=== PATIENT | male | born 1960 | race Caucasian/White ===

== ENCOUNTER → 2016-09-24 | Outpatient (CLI) | payer MEDICARE, MEDICAID ==
[~2016-09-24] MED LIST: ACHD5005 PO; ALLP300T PO; ALPR0.5T PO; AMLO5TAB2 PO; CHOL2000 PO; CIPR500T4 PO; CIPR500T78 PO; CPR500T PO; D50KC PO; DCS100C PO; EXEN10PE4; FENO145T2 PO; FLAX OIL; FLT05NA16 NSEACH; FLUT16SP22 NS; FNT100TD TD; FNT75TD; FURO20TA4 PO; GEMF600T3 PO; GLUC500C2 PO; GUAI1TBM7 PO; HCT25T PO; HYDR-3454 PO; HYDR-3714 PO; HYDR1CAP2 PO; HYOS0.1216 PO; LACT20SO2 PO; LAMO100T69 PO; LCT30U PO; LEVO500T69 PO; LEVO5TAB12 PO; LITH300C PO; LORA10TA7 PO; LRT10T; METF500T PO; METR500T PO; MINO100C2 PO; NF-LAMO200 PO; NF-URO10 PO; NFMET1000 PO; NITR100C3 PO; ONDA-43 PO; OXYC-109 PO; OXYC-309 PO; PHEN200T27 PO; POLY17PO6 PO; POTA10TA17 PO; PROP20TA5 PO; SULF1TAB35 PO; TMSL.4C PO; TR1C15 TOP; VNL75CCR PO; [UNRECOGNIZED DRUG - CODE]
--- OUTSIDE RECORDS SUMMARY | 2016-09-24 09:51 | XMS REPORT | Continuity of Care Document ---
Author Author [facility] Organization [facility] Address Unknown Phone Unavailable Care Team Providers Care Cut Off Saw Set Up Operator Name Role Phone PCP Unavailable Source Comments Some departments are not documenting in the electronic medical record. If you do not see the information that you expected, contact Release of Information in the Health Information Management department at [phone] for further assistance in locating additional records.[facility] Active Allergies and Adverse Reactions Allergen Noted Date Severity Reactions Comments Other 06/13/2012 SEE COMMENTS Psych med aphrinel not sure but caused very agitated and mean Current Medications Prescription Sig. Disp. Refills Start End Date Status Date fentaNYL (DURAGESIC) 100 Apply 1 Patch to top of Active mcg/hr patch skin as directed every 72 hours venlafaxine (EFFEXOR) 75 Take 325 mg by mouth Active mg tablet daily. lithium carbonate 300 mg Take 300 mg by mouth Active capsule daily. lamoTRIgine (LAMICTAL) Take 100 mg by mouth Active 100 mg tablet twice daily. allopurinol (ZYLOPRIM) Take 300 mg by mouth Active 300 mg tablet daily. fenofibrate Take 145 mg by mouth at Active nanocrystallized (TRICOR) bedtime daily. 145 mg tablet minocycline (MINOCIN) 100 Take 100 mg by mouth Active mg capsule daily. potassium chloride(+) Take 20 mEq by mouth Active (MICRO-K) 10 mEq capsule twice daily. metFORMIN (GLUCOPHAGE) Take 1,000 mg by mouth Active 500 mg tablet twice daily. gemfibrozil (LOPID) 600 Take 600 mg by mouth Active mg tablet twice daily. fluticasone (FLONASE) 50 Apply 2 Sprays to each Active mcg/actuation nasal spray nostril as directed as Needed. amLODIPine (NORVASC) 5 mg Take 5 mg by mouth daily. Active tablet Active Problems Problem Noted Date Insomnia 06/13/2012 Fatigue 06/13/2012 Bipolar 1 disorder (HCC) 06/13/2012 Chronic back pain 06/13/2012 Social History Tobacco Use Types Packs/Day Years Used Date Never Smoker Alcohol Use Drinks/Week oz/Week Comments No Last Filed Vital Signs Vital Sign Reading Time Taken Blood Pressure 144/93 06/13/2012 11:32 AM [employer] Pulse 87 06/13/2012 11:32 AM [employer] Temperature - - Respiratory Rate - - Height 1.753 m (5' 9") 06/13/2012 11:32 AM [employer] Weight 132.722 kg (292 lb 9.6 06/13/2012 11:32 AM [employer] oz) Body Mass Index 43.19 06/13/2012 11:32 AM [employer] Oxygen Saturation - - Plan of Care Health Maintenance Due Date Last Done Comments Physical (Comprehensive) 12/03/1966 Exam Pertussis Vaccine 12/03/1970 Tetanus Vaccine 12/03/1976 Colorectal Cancer 12/03/2009 Screening Influenza Vaccine 04/09/2016 Results from Last 3 Months Not on file
== END ==
LOC: LAB 09:45
PROVIDERS: ATTEND Internal Medicine
DX: L73.9 Follicular disorder, unspecified (principal)
CPT/HCPCS: 87081

== ENCOUNTER → 2017-01-06 | Outpatient (CLI) | payer MEDICARE, MEDICAID | LOC: CARD 13:38 | PROVIDERS: ATTEND Internal Medicine | DX: R53.83 Other fatigue (principal); I10 Essential (primary) hypertension; R07.9 Chest pain, unspecified | CPT/HCPCS: 93306 ==

== ENCOUNTER → 2017-01-08 | Outpatient (CLI) | payer MEDICARE, MEDICAID ==
[~2017-01-08] VITALS: Ht 175.3 cm; Wt 132.9 kg
[~2017-01-08] MED LIST changes: +CATHETER FLUSH 10 ML SYR IV PRN; +REGADENOSON 0.4 MG/5 ML SYR (LEXISCAN) IV ONE
[2017-01-08 08:07] VITALS: BP 164/94
== END ==
LOC: CARD 06:39
PROVIDERS: ATTEND Internal Medicine
DX: I10 Essential (primary) hypertension (principal); I07.9 Rheumatic tricuspid valve disease, unspecified; R53.83 Other fatigue
CPT/HCPCS: 78452; 93017

== ENCOUNTER → 2018-04-26 | Outpatient (CLI) | payer MEDICARE, MEDICAID ==
[~2018-04-26] MED LIST changes: +BARIUM SUSPENSION 2.1% (VANILLA SILQ) 450 ML PO ONE; -CATHETER FLUSH 10 ML SYR IV PRN; +IOHEXOL 350 MG/ML 100 ML (OMNIPAQUE 350) VIAL IV ONE; +NS 250 ML (IVPB) BAG IV ONE; -REGADENOSON 0.4 MG/5 ML SYR (LEXISCAN) IV ONE
[2018-04-26 10:26] LABS: BUN/CREATININE RATIO 9; GFR ESTIMATED > 60
--- NOTE | 2018-04-26 12:04 | Diagnostic Imaging Report ---
PROCEDURE: CT abdomen and pelvis with contrast. TECHNIQUE: Multiple contiguous axial images were obtained through the abdomen and pelvis after administration of intravenous contrast. INDICATION: Recurrent ventral hernia and left lower quadrant pain. COMPARISON: Correlation is made with prior CT from 11/11/2015. FINDINGS: The lung bases are clear. The liver demonstrates generalized low density, consistent with hepatic steatosis. No discrete liver mass is identified. The gallbladder appears to be absent. Pancreas and spleen are unremarkable. No adrenal mass is detected. Kidneys contain tiny cortical densities, too small to characterize, but likely cysts. No hydronephrosis is seen. Aorta is nonaneurysmal. No central retroperitoneal or mesenteric lymphadenopathy is seen. There appear to be postsurgical changes to the midline anterior abdomen with focal midline bulge. No definite defect is seen. No herniated bowel loops are identified. Overall appearance is similar to the exam from November 2015. There is no ascites. The bladder is unremarkable. No pelvic lymphadenopathy is seen. Postsurgical changes in the lower lumbar spine are noted. IMPRESSION: Overall, stable CT of the abdomen and pelvis when compared with prior CT from 11/11/2015. Dictated by: Dictated on workstation # [id number]
== END ==
LOC: RAD 09:53
PROVIDERS: ATTEND Surgery
DX: K43.2 Incisional hernia without obstruction or gangrene (principal); Z98.890 Other specified postprocedural states
CPT/HCPCS: 36415; 74177; 82565; 84520

== ENCOUNTER 2018-05-23 11:32 | Outpatient (CLI) | payer MEDICARE, MEDICAID ==
[~2018-05-23] VITALS: Ht 175.3 cm; Wt 132.9 kg
[~2018-05-23 11:32] MED LIST changes: -BARIUM SUSPENSION 2.1% (VANILLA SILQ) 450 ML PO ONE; -IOHEXOL 350 MG/ML 100 ML (OMNIPAQUE 350) VIAL IV ONE; -NS 250 ML (IVPB) BAG IV ONE
[2018-05-23] MEDS ORDERED: POTA10TA17 PO (12:02)
[2018-05-23] MEDS ORDERED: ERGO50006 PO (12:02)
[2018-05-23] MEDS ORDERED: CLIN50GE TP (12:02)
[2018-05-23] MEDS ORDERED: METF-397 PO (12:02)
[2018-05-23] MEDS ORDERED: CEPH500T PO (12:02)
[2018-05-23] MEDS ORDERED: ALLO300T2 PO (12:02)
[2018-05-23] MEDS ORDERED: FLUT9.9S NS (12:02)
[2018-05-23] MEDS ORDERED: METR1KIT2 TP (12:02)
[2018-05-23] MEDS ORDERED: AMLO5TAB7 PO (12:02)
[2018-05-23] MEDS ORDERED: HYDR25TA4 PO (12:02)
[2018-05-23] MEDS ORDERED: CETI10TA17 PO (12:02)
[2018-05-23] MEDS ORDERED: LACT10SO46 PO (12:02)
[2018-05-23 12:15] VITALS: BP 117/81
[2018-05-23 12:42] LABS: BASOPHILS % (AUTO) 0 % (0-10); EOSINOPHILS # (AUTO) 0.3 10^3/uL (0.0-0.3); EOSINOPHILS % (AUTO) 3 % (0-10); HEMATOCRIT 46 % (40-54); HEMOGLOBIN 16.4 G/DL (13.3-17.7); LYMPHOCYTES # (AUTO) 1.6 X 10^3 (1.0-4.0); LYMPHOCYTES % (AUTO) 15 % (12-44); MEAN CORPUSCULAR HEMOGLOBIN 30 PG (25-34); MEAN CORPUSCULAR HGB CONC 36 G/DL (32-36); MEAN CORPUSCULAR VOLUME 85 FL (80-99); MEAN PLATELET VOLUME 9.7 FL (7.4-10.4); MONOCYTES % (AUTO) 9 % (0-12); NEUTROPHILS % (AUTO) 73 % (42-75); PLATELET COUNT 270 10^3/uL (130-400); RED BLOOD COUNT 5.43 10^6/uL (4.35-5.85); RED CELL DISTRIBUTION WIDTH 15.5 % (10.0-14.5); WHITE BLOOD COUNT 10.9 10^3/uL (4.3-11.0)
== END 2018-05-23 13:40 | disposition home or self-care (01) ==
LOC: PREOP 11:32
PROVIDERS: ATTEND Surgery
DX: Z01.812 Encounter for preprocedural laboratory examination (principal); Z11.2 Encounter for screening for other bacterial diseases; K43.9 Ventral hernia without obstruction or gangrene
CPT/HCPCS: 36415; 85025; 87081

== ENCOUNTER 2018-05-25 07:47 | Inpatient (IN) | payer MEDICARE, MEDICAID ==
[~2018-05-25] VITALS: Ht 175.3 cm; Wt 133.4 kg
[~2018-05-25 07:47] MED LIST changes: +ALLO300T2 PO; +AMLO5TAB7 PO; +CEPH500T PO; +CETI10TA17 PO; +CLIN50GE TP; +ERGO50006 PO; +FLUT9.9S NS; +HYDR25TA4 PO; +LACT10SO46 PO; +METF-397 PO; +METR1KIT2 TP
--- OUTSIDE RECORDS SUMMARY | 2018-05-25 07:52 | XMS REPORT | Clinical Summary ---
Author Author [facility] Organization [facility] Address Unknown Phone Unavailable Care Team Providers Care Transportation Engineer Name Role Phone Gregory Mcfadden MD Unavailable Source Comments Some departments are not documenting in the electronic medical record. If you do not see the information that you expected, contact Release of Information in the Health Information Management department at [phone] for further assistance in locating additional records.[facility] Allergies Active Allergy Reactions Severity Noted Date Comments Unclassified Drug SEE COMMENTS 06/13/2012 Psych med aphrinel not sure but caused [...] disorder (HCC) 06/13/2012 Chronic back pain 06/13/2012 Family History Medical History Relation Name Comments Heart Attack Father Heart Failure Father High Cholesterol Father Hypertension Father Diabetes Paternal Grandmother Heart Attack Paternal Grandmother High Cholesterol Paternal Grandmother Hypertension Paternal Grandmother Relation Name Status Comments Brother Alive Brother Alive Father Maternal Grandfather Maternal Grandmother Mother Alive Paternal Grandfather Paternal Grandmother Social History Tobacco Use Types Packs/Day Years Used Date Never Smoker Alcohol Use Drinks/Week oz/Week Comments No Sex Assigned at Date Recorded Not on file Last Filed Vital Signs Vital Sign Reading Time Taken Blood Pressure 144/93 06/13/2012 11:32 AM ME[employer] Pulse 87 06/13/2012 11:32 AM [employer] Temperature - - Respiratory Rate - - Oxygen Saturation - - Inhaled Oxygen - - Concentration Weight 132.7 kg (292 lb 9.6 oz) 06/13/2012 11:32 AM ME[employer] Height 175.3 cm (5' 9") 06/13/2012 11:32 AM [employer] Body Mass Index 43.21 06/13/2012 11:32 AM [employer] Plan of Treatment Health Maintenance Due Date Last Done Comments HEPATITIS C SCREENING 1960 PHYSICAL (COMPREHENSIVE) 12/03/1966 EXAM PERTUSSIS VACCINE 12/03/1970 HIV SCREENING 12/03/1974 TETANUS VACCINE 12/03/1976 COLORECTAL CANCER 12/03/2009 SCREENING SHINGLES RECOMBINANT 12/03/2009 VACCINE (1 of 2) INFLUENZA VACCINE 03/09/2018 Results Not on filefrom Last 3 Months
--- OUTSIDE RECORDS SUMMARY | 2018-05-25 07:52 | XMS REPORT ---
Author Author BECCA NATARAJAN [facility] Address Unknown Care Team Providers Care Software Development Engineer Name Role Phone BECCA NATARAJAN Unavailable PROBLEMS Type Condition ICD9-CM Code [id number] Code Onset Dates Condition Status SNOMED Code Problem Major depressive disorder, recurrent episode, unspecified 296.30 Active 36470730 Problem Bipolar disorder, unspecified 296.80 Active 36012225 ALLERGIES Substance Reaction Event Type Date Status Sulfamethoxazole Unknown Drug Allergy Apr, Active Lexapro Unknown Drug Allergy Apr, Active Aspirin Unknown Drug Allergy Apr, Active Anafranil Unknown Drug Allergy Apr, Active ENCOUNTERS Encounter Location Date Diagnosis [facility] [id number] [place] [id number] Apr, Dental examination Z01.20 [facility] [id number] [place] [address]- [address] Nov, [facility] [id number] [place] [address]19- 9927 Nov, [facility] [id number] [place] [address]647- 3749 May, [facility] [id number] [place] [address]97- 3953 May, [facility] [id number] [place] [address]- 8482 May, [facility] [id number] [place] [address]- 1286 May, [facility] [id number] [place] [address]11- 9323 Apr, [facility] [id number] [place] [address]52- 7391 Apr, [facility] [place] [facility] [address] [id number] [place] [address]99 Feb, [facility] [place] [facility] [address] [id number] [place] [address] 1706 Feb, [facility] [place] [facility] [address] [id number] [place] [address] 9436 Nov, [facility] [place] [facility] [address] [id number] [place] [address] 6692 Nov, [facility] [place] [facility] [address] [id number] [place] [address] 7972 Oct, [facility] [place] [facility] [address] [id number] [place] [address] 0397 Oct, [facility] [place] [facility] [address] [id number] [place] [address] 1582 Oct, [facility] [place] [facility] [address] [id number] [place] [address] 1984 Oct, [facility] [place] [facility] [address] [id number] [place] [address] 8465 Sep, [facility] [place] [facility] [address] [id number] [place] [address] 6407 Sep, [facility] [place] [facility] [address] [id number], [place] [address] Aug, [facility] [place] [facility] [address] [id number], [place] [address] Aug, [facility] [place] [facility] [address] [id number] [place] [address] 6487 May, [facility] [place] [facility] [address] [id number] [place] [address] 2356 May, [facility] [place] [facility] [address] [id number] [place] [address] 2546 May, [facility] [place] [facility] [address] [id number] [place] [address] 7705 May, [facility] [address] [id number] [place] [address] 6729 Apr, [facility] [address] [id number] [place] [address] 9981 Mar, [facility] [address] [id number] [place] [address] 4550 Mar, [facility] [address] [id number] [place] [address] 7218 Mar, [facility] [address] [id number] [place] [address]- 3598 Mar, [facility] [address] [id number] [place] [address] 4080 Mar, [facility] [address] [id number] [place] [address] 9075 Mar, [facility] [address] [id number] [place] [address]- 2947 Jan, [facility] [address] [id number] [place] [address]- 0461 Jan, [facility] [address] [id number] [place] [address] 0681 Jan, [facility] [address] [id number] [place] [address]- 0576 December, [facility] [address] [id number] [place] [address] 3903 December, [facility] [address] [id number] [place] [address]- 0645 December, [facility] [address] [id number] [place] [address]- 8315 December, [facility] [address] [id number] [place] [address]- 6027 December, [facility] [address] [id number] [place] [address]- 5279 14 Dec, 2012 [facility] [address] [id number] [place] [address]- 0358 30 Nov, 2012 [facility] [address] [id number] [place] [address]- 0418 Nov, [facility] [place] [facility] [address] [id number] [place] [address]- 6605 Nov, [facility] [address] [id number] [place] [address]- 0930 05 Nov, 2012 [facility] [address] [id number] [place] [address]- 1493 Oct, [facility] [address] [id number] [place] [address]- 1377 Oct, [facility] [address] [id number] [place] [address]- 0943 Oct, [facility] [address] [id number] [place] [address]- 8550 Sep, [facility] [address] [id number] [place] [address]- 9781 Aug, [facility] [address] [id number] [place] [address]- 3893 Aug, [facility] [place] [facility] [address] [id number], [place] [address] 5640 Aug, [facility] [place] [facility] [address] [id number] [place] [address]- 9365 Jun, [facility] [place] [facility] [address] [id number] [place] [address]- 0545 Jun, [facility] [place] [facility] [address] [id number] [place] [address]- 4067 Jun, [facility] [place] [facility] [address] [id number] [place] [address]- 3670 Jun, [facility] [place] [facility] [address] [id number] [place] [address]- 3733 May, [facility] [place] [facility] [address] [id number] [place] [address] May, [facility] [place] [facility] [address] [id number] [place] [address]- 0167 May, [facility] [place] [facility] [address] [id number] [place] [address]- 6790 May, [facility] [place] [facility] [address] [id number] [place] [address]- [address] May, [facility] [place] [facility] [address] [id number] [place] [address]- 5096 May, [facility] [place] [facility] [address] [facility] [id number] [place] [address]- 1238 May, [facility] [place] [facility] [address] [id number] [place] [address]- 5271 May, [facility] [place] [facility] [address] [id number] [place] [address]- 0521 Mar, [facility] [place] [facility] [address] [facility] [id number] [place] [address]- 4757 Mar, [facility] [place] [facility] [address] [id number] [place] [address]- 0833 Mar, [facility] [place] [facility] [address] [id number] [place] [address]- 5950 Feb, [facility] [place] [facility] [address] [id number] [place] [address]- 9991 Feb, [facility] [place] [facility] [address] [facility] [id number] [place] [address]- 0048 Jan, [facility] [place] [facility] [address] [facility] [id number] [place] [address]- 4873 December, [facility] [place] [facility] [address] [id number] [place] [address]- 0386 Nov, [facility] [place] [facility] [address] [id number] [place] [address]- 8872 28 Oct, 2011 [facility] [place] [facility] [address] [id number] [place] [address] 2546 Oct, [facility] [place] [facility] [address] [id number] [place] [address]- 0677 Aug, [facility] [place] [facility] [address] [id number] [place] [address]- 0059 Jul, [facility] [place] [facility] [address] [id number] [place] [address]- 7258 Jul, [facility] [place] [facility] [address] [id number] [place] [address]- 2752 Jul, [facility] [place] [facility] [address] [id number] [place] [address]- 6112 17 Jun, 2011 [facility] [place] [facility] [address] [id number] [place] [address]- 7771 17 Jun, 2011 [facility] [place] [facility] [address] [id number] [place] [address]- 0165 17 May, 2011 [facility] [place] [facility] [address] [id number] [place] [address]- 7108 17 May, 2011 [facility] [place] [facility] [address] [id number] [place] [address]- 5128 16 Mar, 2011 [facility] [place] [facility] [address] [id number] [place] [address]- 2546 16 Jan, 2011 [facility] [place] [facility] [address] [id number] [place] [address]- 4515 13 Jun, 2010 [facility] [place] [facility] [address] [id number] [place] [address]- 7016 13 Jun, 2010 [facility] [place] [facility] [address] [id number] [place] [address]- 5306 May, IMMUNIZATIONS No Known Immunizations SOCIAL HISTORY Never Assessed REASON FOR VISIT [place] PLAN OF CARE Activity Details Follow Up prn Reason:refer VITAL SIGNS Blood pressure systolic 127 mmHg 2017-04-22 Blood pressure diastolic 80 mmHg 2017-04-22 MEDICATIONS Medication Instructions Dosage Frequency Start Date End Date Duration Status Hydrochlorothiazide Active Vitamin D Active Lamictal Active Allopurinol 300 mg 1 Tablet by Oral route 1 time per day Mar, Active Doxycycline Active amlodipine 5 mg 1 Tablet by Oral route 1 time per day Mar, Active Potassium Citrate 10 mEq 2 Tablet by Oral route 2 times per day Mar Active Generlac Active Clindamycin HCl Active metformin 500 mg 2 Tablet by Oral route 2 times per day Mar, Active Metronidazole Active Ketoconazole-Cleanser Active RESULTS No Results PROCEDURES Procedure Date Ordered Result Body Site LTD ORAL EVALUATION - PROBLEM FOCUS Apr 22, 2017 INTRAORL-PERIAPICAL 1 FILM [id number] Apr 22, 2017 INSTRUCTIONS MEDICATIONS ADMINISTERED No Known Medications MEDICAL (GENERAL) HISTORY Type Description Date Medical History high blood pressure Medical History diabetes II Medical History surgery requiring pins, rods, screws Medical History back trouble Medical History hives Surgical History gall bladder Surgical History broken arm left humorous bone Surgical History naval hernia repair Surgical History kidney stones Surgical History cyst removed on back
--- NOTE | 2018-05-25 07:55 | Progress Note-Pre Operative ---
Pre-Operative Progress Note H&P Reviewed The H&P was reviewed, patient examined and no changes noted. Date Seen by Provider: Apr 28, 2018 Time Seen by Provider: 14:00 Date H&P Reviewed: May 25, 2018 Time H&P Reviewed: 07:55 Pre-Operative Diagnosis: Ventral and LLQ hernia SULLY MCLEAN MD May 25, 2018 07:55
--- OUTSIDE RECORDS SUMMARY | 2018-05-25 07:56 | XMS REPORT | Continuity of Care Document ---
Author Author [facility] Address Unknown Phone Unavailable Allergies Active Description Code Type Severity Reaction Onset Reported/Identified Relationship to Patient Clinical Status Yes enalapril-hydrochlorothiazide Drug Allergy 03/24/2011 Yes Anafranil Drug Allergy 05/25/2011 Yes Anafranil Drug Allergy N/A N/A 05/25/2011 Yes clomipramine [id number] Drug Allergy Mild N/A 12/01/2013 Yes aspirin [id number] Drug Allergy Unknown N/A 12/01/2013 Yes Sulfa (Sulfonamide Antibiotics) [id number] Drug Allergy Moderate ITCHING/NAUSEA 08/07/2015 Yes aspirin [id number] Drug Allergy Mild GI UPSET 05/23/2018 Yes Iodinated Contrast- Oral and IV Dye [id number] Drug Allergy Mild FACIAL ALVAREZ 05/23/2018 Medications There is no data. Problems Date Dx Coded Attending Type Code Diagnosis Diagnosed By 03/24/2008 296.50 BIPOLAR I DISORDER MOST RECENT EPISODE (OR CURRENT) DEPRESSED UNSPECIFIED 03/24/2008 300.00 AN ANXIETY UNSPEC 03/24/2008 296.50 BIPOLAR I DISORDER MOST RECENT EPISODE (OR CURRENT) DEPRESSED UNSPECIFIED 03/24/2008 300.00 AN ANXIETY UNSPEC 03/24/2008 296.50 BIPOLAR I DISORDER MOST RECENT EPISODE (OR CURRENT) DEPRESSED UNSPECIFIED 03/24/2008 300.00 AN ANXIETY UNSPEC 03/24/2008 296.50 BIPOLAR I DISORDER MOST RECENT EPISODE (OR CURRENT) DEPRESSED UNSPECIFIED 03/24/2008 300.00 AN ANXIETY UNSPEC 03/24/2008 296.50 BIPOLAR I DISORDER MOST RECENT EPISODE (OR CURRENT) DEPRESSED UNSPECIFIED 03/24/2008 300.00 AN ANXIETY UNSPEC 03/24/2008 296.50 BIPOLAR I DISORDER MOST RECENT EPISODE (OR CURRENT) DEPRESSED UNSPECIFIED 03/24/2008 300.00 AN ANXIETY UNSPEC 03/24/2008 296.50 BIPOLAR I DISORDER MOST RECENT EPISODE (OR CURRENT) DEPRESSED UNSPECIFIED 03/24/2008 300.00 AN ANXIETY UNSPEC 03/24/2008 STAR RUSSO DO 296.50 BIPOLAR I DISORDER MOST RECENT EPISODE (OR CURRENT) DEPRESSED UNSPECIFIED 03/24/2008 STAR RUSSO DO 300.00 AN ANXIETY UNSPEC 03/24/2008 296.50 BIPOLAR I DISORDER MOST RECENT EPISODE (OR CURRENT) DEPRESSED UNSPECIFIED 03/24/2008 300.00 AN ANXIETY UNSPEC 03/24/2008 296.50 BIPOLAR I DISORDER MOST RECENT EPISODE (OR CURRENT) DEPRESSED UNSPECIFIED 03/24/2008 300.00 AN ANXIETY UNSPEC 03/24/2008 296.50 BIPOLAR I DISORDER MOST RECENT EPISODE (OR CURRENT) DEPRESSED UNSPECIFIED 03/24/2008 300.00 AN ANXIETY UNSPEC 03/24/2008 296.50 BIPOLAR I DISORDER MOST RECENT EPISODE (OR CURRENT) DEPRESSED UNSPECIFIED 03/24/2008 300.00 AN ANXIETY UNSPEC 03/24/2008 296.50 BIPOLAR I DISORDER MOST RECENT EPISODE (OR CURRENT) DEPRESSED UNSPECIFIED 03/24/2008 300.00 AN ANXIETY UNSPEC 03/24/2008 STAR RUSSO DO 296.50 BIPOLAR I DISORDER MOST RECENT EPISODE (OR CURRENT) DEPRESSED UNSPECIFIED 03/24/2008 STAR RUSSO DO 300.00 AN ANXIETY UNSPEC 03/24/2008 ADEEL MICHELLE PHD 296.50 BIPOLAR I DISORDER MOST RECENT EPISODE (OR CURRENT) DEPRESSED UNSPECIFIED 03/24/2008 ADEEL MICHELLE PHD 300.00 AN ANXIETY UNSPEC 03/24/2008 ADEEL MICHELLE PHD A 296.50 BIPOLAR I DISORDER MOST RECENT EPISODE (OR CURRENT) DEPRESSED UNSPECIFIED 03/24/2008 ADEEL MICHELLE PHD A 300.00 AN ANXIETY UNSPEC 03/24/2008 ADEEL MICHELLE PHD A 296.50 BIPOLAR I DISORDER MOST RECENT EPISODE (OR CURRENT) DEPRESSED UNSPECIFIED 03/24/2008 ADEEL MICHELLE PHD A 300.00 AN ANXIETY UNSPEC 03/24/2008 MIGUEL ANGEL OCHOA, ADEEL A 296.50 BIPOLAR I DISORDER MOST RECENT EPISODE (OR CURRENT) DEPRESSED UNSPECIFIED 03/24/2008 ADEEL MICHELLE PHD A 300.00 AN ANXIETY UNSPEC 03/24/2008 ADEEL MICHELLE PHD A 296.50 BIPOLAR I DISORDER MOST RECENT EPISODE (OR CURRENT) DEPRESSED UNSPECIFIED 03/24/2008 ADEEL MICHELLE PHD A 300.00 AN ANXIETY UNSPEC 03/24/2008 ADEEL MICHELLE PHD A 296.50 BIPOLAR I DISORDER MOST RECENT EPISODE (OR CURRENT) DEPRESSED UNSPECIFIED 03/24/2008 MIGUEL ANGEL OCHOA, ADEEL Guzman 300.00 AN ANXIETY UNSPEC 05/10/2008 995.20 UNSPECIFIED ADVERSE EFFECT OF UNSPECIFIED DRUG MEDICINAL AND BIOLOGICAL SUBSTANCE 05/10/2008 V61.20 COUNSELING FOR PARENT-CHILD PROBLEM UNSPECIFIED 05/10/2008 995.20 UNSPECIFIED ADVERSE EFFECT OF UNSPECIFIED DRUG MEDICINAL AND BIOLOGICAL SUBSTANCE 05/10/2008 V61.20 COUNSELING FOR PARENT-CHILD PROBLEM UNSPECIFIED 05/10/2008 995.20 UNSPECIFIED ADVERSE EFFECT OF UNSPECIFIED DRUG MEDICINAL AND BIOLOGICAL SUBSTANCE 05/10/2008 V61.20 COUNSELING FOR PARENT-CHILD PROBLEM UNSPECIFIED 05/10/2008 995.20 UNSPECIFIED ADVERSE EFFECT OF UNSPECIFIED DRUG MEDICINAL AND BIOLOGICAL SUBSTANCE 05/10/2008 V61.20 COUNSELING FOR PARENT-CHILD PROBLEM UNSPECIFIED 05/10/2008 995.20 UNSPECIFIED ADVERSE EFFECT OF UNSPECIFIED DRUG MEDICINAL AND BIOLOGICAL SUBSTANCE 05/10/2008 V61.20 COUNSELING FOR PARENT-CHILD PROBLEM UNSPECIFIED 05/10/2008 995.20 UNSPECIFIED ADVERSE EFFECT OF UNSPECIFIED DRUG MEDICINAL AND BIOLOGICAL SUBSTANCE 05/10/2008 V61.20 COUNSELING FOR PARENT-CHILD PROBLEM UNSPECIFIED 05/10/2008 995.20 UNSPECIFIED ADVERSE EFFECT OF UNSPECIFIED DRUG MEDICINAL AND BIOLOGICAL SUBSTANCE 05/10/2008 V61.20 COUNSELING FOR PARENT-CHILD PROBLEM UNSPECIFIED 05/10/2008 STAR RUSSO DO 995.20 UNSPECIFIED ADVERSE EFFECT OF UNSPECIFIED DRUG MEDICINAL AND BIOLOGICAL SUBSTANCE 05/10/2008 STAR RUSSO DO V61.20 COUNSELING FOR PARENT-CHILD PROBLEM UNSPECIFIED 05/10/2008 995.20 UNSPECIFIED ADVERSE EFFECT OF UNSPECIFIED DRUG MEDICINAL AND BIOLOGICAL SUBSTANCE 05/10/2008 V61.20 COUNSELING FOR PARENT-CHILD PROBLEM UNSPECIFIED 05/10/2008 995.20 UNSPECIFIED ADVERSE EFFECT OF UNSPECIFIED DRUG MEDICINAL AND BIOLOGICAL SUBSTANCE 05/10/2008 V61.20 COUNSELING FOR PARENT-CHILD PROBLEM UNSPECIFIED 05/10/2008 995.20 UNSPECIFIED ADVERSE EFFECT OF UNSPECIFIED DRUG MEDICINAL AND BIOLOGICAL SUBSTANCE 05/10/2008 V61.20 COUNSELING FOR PARENT-CHILD PROBLEM UNSPECIFIED 05/10/2008 995.20 UNSPECIFIED ADVERSE EFFECT OF UNSPECIFIED DRUG MEDICINAL AND BIOLOGICAL SUBSTANCE 05/10/2008 V61.20 COUNSELING FOR PARENT-CHILD PROBLEM UNSPECIFIED 05/10/2008 995.20 UNSPECIFIED ADVERSE EFFECT OF UNSPECIFIED DRUG MEDICINAL AND BIOLOGICAL SUBSTANCE 05/10/2008 V61.20 COUNSELING FOR PARENT-CHILD PROBLEM UNSPECIFIED 05/10/2008 MASHAROSE DO STAR F 995.20 UNSPECIFIED ADVERSE EFFECT OF UNSPECIFIED DRUG MEDICINAL AND BIOLOGICAL SUBSTANCE 05/10/2008 RAFAELA JACKSON STAR Poole V61.20 COUNSELING FOR PARENT-CHILD PROBLEM UNSPECIFIED 05/10/2008 ADEEL MICHELLE PHD 995.20 UNSPECIFIED ADVERSE EFFECT OF UNSPECIFIED DRUG MEDICINAL AND BIOLOGICAL SUBSTANCE 05/10/2008 ADEEL MICHELLE PHD V61.20 COUNSELING FOR PARENT-CHILD PROBLEM UNSPECIFIED 05/10/2008 ADEEL MICHELLE PHD 995.20 UNSPECIFIED ADVERSE EFFECT OF UNSPECIFIED DRUG MEDICINAL AND BIOLOGICAL SUBSTANCE 05/10/2008 ADEEL MICHELLE PHD V61.20 COUNSELING FOR PARENT-CHILD PROBLEM UNSPECIFIED 05/10/2008 ADEEL MICHELLE PHD 995.20 UNSPECIFIED ADVERSE EFFECT OF UNSPECIFIED DRUG MEDICINAL AND BIOLOGICAL SUBSTANCE 05/10/2008 ADEEL MICHELLE PHD V61.20 COUNSELING FOR PARENT-CHILD PROBLEM UNSPECIFIED 05/10/2008 ADEEL MICHELLE PHD 995.20 UNSPECIFIED ADVERSE EFFECT OF UNSPECIFIED DRUG MEDICINAL AND BIOLOGICAL SUBSTANCE 05/10/2008 ADEEL MICHELLE PHD V61.20 COUNSELING FOR PARENT-CHILD PROBLEM UNSPECIFIED 05/10/2008 ADEEL MICHELLE PHD 995.20 UNSPECIFIED ADVERSE EFFECT OF UNSPECIFIED DRUG MEDICINAL AND BIOLOGICAL SUBSTANCE 05/10/2008 ADEEL MICHELLE PHD V61.20 COUNSELING FOR PARENT-CHILD PROBLEM UNSPECIFIED 05/10/2008 ADEEL MICHELLE PHD 995.20 UNSPECIFIED ADVERSE EFFECT OF UNSPECIFIED DRUG MEDICINAL AND BIOLOGICAL SUBSTANCE 05/10/2008 ADEEL MICHELLE PHD V61.20 COUNSELING FOR PARENT-CHILD PROBLEM UNSPECIFIED 08/21/2008 V58.69 MEDICATION HIGH RISK 08/21/2008 V58.69 MEDICATION HIGH RISK 08/21/2008 V58.69 MEDICATION HIGH RISK 08/21/2008 V58.69 MEDICATION HIGH RISK 08/21/2008 V58.69 MEDICATION HIGH RISK 08/21/2008 V58.69 MEDICATION HIGH RISK 08/21/2008 V58.69 MEDICATION HIGH RISK 08/21/2008 MASHAROSE DO STAR F V58.69 MEDICATION HIGH RISK 08/21/2008 V58.69 MEDICATION HIGH RISK 08/21/2008 V58.69 MEDICATION HIGH RISK 08/21/2008 V58.69 MEDICATION HIGH RISK 08/21/2008 V58.69 MEDICATION HIGH RISK 08/21/2008 V58.69 MEDICATION HIGH RISK 08/21/2008 RAFAELA DOSTAR F V58.69 MEDICATION HIGH RISK 08/21/2008 MIGUEL ANGEL PHD, ADEEL A V58.69 MEDICATION HIGH RISK 08/21/2008 MIGUEL ANGEL PHD, ADEEL Guzman V58.69 MEDICATION HIGH RISK 08/21/2008 MIGUEL ANGEL PHD, ADEEL Guzman V58.69 MEDICATION HIGH RISK 08/21/2008 MIGUEL ANGEL PHD, ADEEL Guzman V58.69 MEDICATION HIGH RISK 08/21/2008 MIGUEL ANGEL PHD, ADEEL Guzman V58.69 MEDICATION HIGH RISK 08/21/2008 MIGUEL ANGEL PHD, ADEEL Guzman V58.69 MEDICATION HIGH RISK 10/19/2008 V61.10 RL RELATION COUNS 10/19/2008 V61.10 RL RELATION COUNS 10/19/2008 V61.10 RL RELATION COUNS 10/19/2008 V61.10 RL RELATION COUNS 10/19/2008 V61.10 RL RELATION COUNS 10/19/2008 V61.10 RL RELATION COUNS 10/19/2008 V61.10 RL RELATION COUNS 10/19/2008 STAR RUSSO DO V61.10 RL RELATION COUNS 10/19/2008 V61.10 RL RELATION COUNS 10/19/2008 V61.10 RL RELATION COUNS 10/19/2008 V61.10 RL RELATION COUNS 10/19/2008 V61.10 RL RELATION COUNS 10/19/2008 V61.10 RL RELATION COUNS 10/19/2008 STAR RUSSO DO V61.10 RL RELATION COUNS 10/19/2008 MIGUEL ANGEL PHD, ADEEL Guzman V61.10 RL RELATION COUNS 10/19/2008 MIGUEL ANGEL PHD, ADEEL Guzman V61.10 RL RELATION COUNS 10/19/2008 MIGUEL ANGEL PHD, ADEEL Guzman V61.10 RL RELATION COUNS 10/19/2008 MIGUEL ANGEL PHD, ADEEL Guzman V61.10 RL RELATION COUNS 10/19/2008 MIGUEL ANGEL PHD, ADEEL Guzman V61.10 RL RELATION COUNS 10/19/2008 MIGUEL ANGEL OCHOA, ADEEL Guzman V61.10 RL RELATION COUNS 11/12/2008 296.89 MO BIPOLAR II 11/12/2008 307.47 SI DYSSOMNIA NOS 11/12/2008 296.89 MO BIPOLAR II 11/12/2008 307.47 SI DYSSOMNIA NOS 11/12/2008 296.89 MO BIPOLAR II 11/12/2008 307.47 SI DYSSOMNIA NOS 11/12/2008 296.89 MO BIPOLAR II 11/12/2008 307.47 SI DYSSOMNIA NOS 11/12/2008 296.89 MO BIPOLAR II 11/12/2008 307.47 SI DYSSOMNIA NOS 11/12/2008 296.89 MO BIPOLAR II 11/12/2008 307.47 SI DYSSOMNIA NOS 11/12/2008 296.89 MO BIPOLAR II 11/12/2008 307.47 SI DYSSOMNIA NOS 11/12/2008 STAR RUSSO DO 296.89 MO BIPOLAR II 11/12/2008 STAR RUSSO DO 307.47 SI DYSSOMNIA NOS 11/12/2008 296.89 MO BIPOLAR II 11/12/2008 307.47 SI DYSSOMNIA NOS 11/12/2008 296.89 MO BIPOLAR II 11/12/2008 307.47 SI DYSSOMNIA NOS 11/12/2008 296.89 MO BIPOLAR II 11/12/2008 307.47 SI DYSSOMNIA NOS 11/12/2008 296.89 MO BIPOLAR II 11/12/2008 307.47 SI DYSSOMNIA NOS 11/12/2008 296.89 MO BIPOLAR II 11/12/2008 307.47 SI DYSSOMNIA NOS 11/12/2008 STAR RUSSO DO F 296.89 MO BIPOLAR II 11/12/2008 STAR RUSSO DO 307.47 SI DYSSOMNIA NOS 11/12/2008 MIGUEL ANGEL OCHOA, ADEEL Guzman 296.89 MO BIPOLAR II 11/12/2008 MIGUEL ANGEL OCHOA, ADEEL Guzman 307.47 SI DYSSOMNIA NOS 11/12/2008 MIGUEL ANGEL OCHOA, ADEEL Guzman 296.89 MO BIPOLAR II 11/12/2008 ADEEL MICHELLE PHD 307.47 SI DYSSOMNIA NOS 11/12/2008 MIGUEL ANGEL OCHOA, ADEEL Guzman 296.89 MO BIPOLAR II 11/12/2008 MIGUEL ANGEL PHD, ADEEL Guzman 307.47 SI DYSSOMNIA NOS 11/12/2008 MIGUEL ANGEL OCHOA, ADEEL Guzman 296.89 MO BIPOLAR II 11/12/2008 MIGUEL ANGEL OCHOA, ADEEL Guzman 307.47 SI DYSSOMNIA NOS 11/12/2008 MIGUEL ANGEL OCHOA, ADEEL Guzman 296.89 MO BIPOLAR II 11/12/2008 MIGUEL ANGEL OCHOA, ADEEL Guzman 307.47 SI DYSSOMNIA NOS 11/12/2008 MIGUEL ANGEL OCHOA, ADEEL Guzman 296.89 MO BIPOLAR II 11/12/2008 MIGUEL ANGEL OCHOA, ADEEL Guzman 307.47 SI DYSSOMNIA NOS 08/03/2011 Ot 401.9 HYPERTENSION NOS 08/03/2011 Ot 786.05 SHORTNESS OF BREATH 08/03/2011 Ot V58.69 OTH MED,LT, CURRENT USE 10/30/2011 296.30 MO DEPRESSIVE RECURRENT UNSPECIFIED 10/30/2011 296.30 MO DEPRESSIVE RECURRENT UNSPECIFIED 10/30/2011 296.30 MO DEPRESSIVE RECURRENT UNSPECIFIED 10/30/2011 296.30 MO DEPRESSIVE RECURRENT UNSPECIFIED 10/30/2011 296.30 MO DEPRESSIVE RECURRENT UNSPECIFIED 10/30/2011 296.30 MO DEPRESSIVE RECURRENT UNSPECIFIED 10/30/2011 296.30 MO DEPRESSIVE RECURRENT UNSPECIFIED 10/30/2011 STAR RUSSO DO 296.30 MO DEPRESSIVE RECURRENT UNSPECIFIED 10/30/2011 296.30 MO DEPRESSIVE RECURRENT UNSPECIFIED 10/30/2011 296.30 MO DEPRESSIVE RECURRENT UNSPECIFIED 10/30/2011 296.30 MO DEPRESSIVE RECURRENT UNSPECIFIED 10/30/2011 296.30 MO DEPRESSIVE RECURRENT UNSPECIFIED 10/30/2011 296.30 MO DEPRESSIVE RECURRENT UNSPECIFIED 10/30/2011 STAR RUSSO DO 296.30 MO DEPRESSIVE RECURRENT UNSPECIFIED 10/30/2011 ADEEL MICHELLE PHD 296.30 MO DEPRESSIVE RECURRENT UNSPECIFIED 10/30/2011 ADEEL MICHELLE PHD 296.30 MO DEPRESSIVE RECURRENT UNSPECIFIED 10/30/2011 ADEEL MICHELLE PHD 296.30 MO DEPRESSIVE RECURRENT UNSPECIFIED 10/30/2011 ADEEL MICHELLE PHD 296.30 MO DEPRESSIVE RECURRENT UNSPECIFIED 10/30/2011 ADEEL MICHELLE PHD 296.30 MO DEPRESSIVE RECURRENT UNSPECIFIED 10/30/2011 ADEEL MICHELLE PHD 296.30 MO DEPRESSIVE RECURRENT UNSPECIFIED 05/26/2012 296.80 MO BIPOLAR NOS 05/26/2012 296.80 MO BIPOLAR NOS 05/26/2012 296.80 MO BIPOLAR NOS 05/26/2012 296.80 MO BIPOLAR NOS 05/26/2012 296.80 MO BIPOLAR NOS 05/26/2012 296.80 MO BIPOLAR NOS 05/26/2012 296.80 MO BIPOLAR NOS 05/26/2012 STAR RUSSO DO 296.80 MO BIPOLAR NOS 05/26/2012 296.80 MO BIPOLAR NOS 05/26/2012 296.80 MO BIPOLAR NOS 05/26/2012 296.80 MO BIPOLAR NOS 05/26/2012 296.80 MO BIPOLAR NOS 05/26/2012 296.80 MO BIPOLAR NOS 05/26/2012 STAR RUSSO DO 296.80 MO BIPOLAR NOS 05/26/2012 MIGUEL ANGEL OCHOA, ADEEL Guzman 296.80 MO BIPOLAR NOS 05/26/2012 MIGUEL ANGEL OCHOA, ADEEL Guzman 296.80 MO BIPOLAR NOS 05/26/2012 MIGUEL ANGEL OCHOA, ADEEL Guzman 296.80 MO BIPOLAR NOS 05/26/2012 MIGUEL ANGEL OCHOA, ADEEL Guzman 296.80 MO BIPOLAR NOS 05/26/2012 MIGUEL ANGEL OCHOA, ADEEL Guzman 296.80 MO BIPOLAR NOS 05/26/2012 MIGUEL ANGEL OCHOA, ADEEL Guzman 296.80 MO BIPOLAR NOS 10/07/2012 Ot 574.20 CHOLELITHIASIS NOS 10/07/2012 Ot 585.9 CHRONIC KIDNEY DISEASE, UNSPECIFIED 10/07/2012 Ot 592.1 CALCULUS OF URETER 10/07/2012 Ot 724.5 BACKACHE NOS 04/29/2013 BETINA VALENTINO, OUMAR Argueta Ot 327.23 OBSTRUCTIVE SLEEP APNEA (ADULT) (PEDIATR 08/27/2013 ELVIS PHILLIPS Ot 564.00 UNSPEC CONSTIPATION 08/27/2013 ELVIS PHILLIPS Ot 574.20 CHOLELITHIASIS NOS 08/27/2013 ELVIS PHILLIPS Ot 592.0 CALCULUS OF KIDNEY 09/04/2013 YOMI NY DO Ot 250.00 DIAB JOSELUIS WO COMPL, TYPE II OR UNSPEC TY 09/04/2013 YOMI NY DO Ot 268.9 VITAMIN D DEFICIENCY NOS 09/04/2013 YOMI NY DO Ot 272.4 HYPERLIPIDEMIA NEC/NOS 09/04/2013 YOMI NY DO Ot 274.9 GOUT NOS 09/04/2013 YOMI NY DO Ot 278.01 MORBID OBESITY 09/04/2013 YOMI NY DO Ot 296.80 BIPOLAR DISORDER, UNSPECIFIED 09/04/2013 YOMI NY DO Ot 327.23 OBSTRUCTIVE SLEEP APNEA (ADULT) (PEDIATR 09/04/2013 YOMI NY DO Ot 560.32 FECAL IMPACTION 09/04/2013 OYMI NY DO Ot 574.20 CHOLELITHIASIS NOS 09/04/2013 YOMI NY DO Ot 706.1 ACNE NEC 09/04/2013 YOMI NY DO Ot 722.52 LUMB/LUMBOSAC DISC DEGEN 09/04/2013 YOMI NY DO Ot 787.3 FLATUL/ERUCTAT/GAS PAIN 09/04/2013 YOMI NY DO Ot 787.63 FECAL URGENCY 09/04/2013 YOMI NY DO, Ot 789.00 ABDOMINAL PAIN, UNSPECIFIED SITE 09/04/2013 YOMI NY DO, Ot V13.01 PERSONAL HISTORY OF URINARY CALCULI 09/04/2013 YOMI NY DO Ot V85.41 BODY MASS INDEX 40.0-44.9, ADULT 10/03/2013 DANIEL VALENTINO, ELIZABETH Bejarano Ot 724.02 SPINAL STENOSIS, LUMBAR REG, W/OUT NEURO 10/03/2013 DANIEL VALENTINO, ELIZABETH Bejarano Ot 733.10 PATHOLOGIC FRACTURE, SITE NOS 10/03/2013 DANIEL VALENTINO, ELIZABETH Bejarano Ot 738.4 ACQ SPONDYLOLISTHESIS 10/12/2013 YOMI NY DO Ot 250.00 DIAB JOSELUIS WO COMPL, TYPE II OR UNSPEC TY 10/12/2013 YOMI NY DO Ot 268.9 VITAMIN D DEFICIENCY NOS 10/12/2013 YOMI NY DO Ot 272.4 HYPERLIPIDEMIA NEC/NOS 10/12/2013 YOMI NY DO Ot 274.9 GOUT NOS 10/12/2013 YOMI NY DO Ot 278.01 MORBID OBESITY 10/12/2013 YOMI NY DO Ot 296.50 BIPOL I, REC EPIS (OR CURRENT) DEPRESSED 10/12/2013 YOMI NY DO Ot 306.9 PSYCHOGENIC DISORDER NOS 10/12/2013 YOMI NY DO Ot 327.23 OBSTRUCTIVE SLEEP APNEA (ADULT) (PEDIATR 10/12/2013 YOMI NY DO Ot 426.4 RT BUNDLE BRANCH BLOCK 10/12/2013 YOMI NY DO Ot 429.9 HEART DISEASE NOS 10/12/2013 YOMI NY DO Ot 574.20 CHOLELITHIASIS NOS 10/12/2013 YOMI NY DO Ot 592.0 CALCULUS OF KIDNEY 10/12/2013 YOMI NY DO Ot 706.1 ACNE NEC 10/12/2013 YOMI NY DO Ot 722.52 LUMB/LUMBOSAC DISC DEGEN 10/12/2013 YOMI NY DO Ot 785.0 TACHYCARDIA NOS 10/12/2013 YOMI NY DO Ot 786.09 RESPIRATORY ABNORM NEC 10/12/2013 YOMI NY DO Ot V03.82 PROPHYLACTIC VACC AGAINST STREPTOCOCCUS 10/12/2013 YOMI NY DO Ot V85.41 BODY MASS INDEX 40.0-44.9, ADULT 10/23/2013 SULLY MCLEAN MD Ot 250.00 DIAB JOSELUIS WO COMPL, TYPE II OR UNSPEC TY 10/23/2013 SULLY MCLEAN MD Ot 272.4 HYPERLIPIDEMIA NEC/NOS 10/23/2013 SULLY MCLEAN MD Ot 562.10 DIVERTICULOSIS COLON (W/O MENT OF HEMORR 10/23/2013 SULLY MCLEAN MD Ot 564.00 UNSPEC CONSTIPATION 11/03/2013 MICHAEL MCGINNIS MD Ot 463 ACUTE TONSILLITIS 11/03/2013 MICHAEL MCGINNIS MD Ot 784.1 THROAT PAIN 11/18/2013 MELISSA MARTINEZ MD Ot 729.81 SWELLING OF LIMB 11/18/2013 MELISSA MARTINEZ MD Ot 782.3 EDEMA 11/20/2013 EDUIN WALKER MD Ot 462 ACUTE PHARYNGITIS 11/20/2013 EDUIN WALKER MD Ot 473.9 CHRONIC SINUSITIS NOS 11/20/2013 EDUIN WALKER MD Ot 692.9 DERMATITIS NOS 11/20/2013 EDUIN WALKER MD Ot 724.5 BACKACHE NOS 11/20/2013 ARTURKARI Vera DO K Ot 462 ACUTE PHARYNGITIS 11/20/2013 ARTURKARI Vera DO K Ot 473.9 CHRONIC SINUSITIS NOS 2013 EDUIN WALKER MD Ot 462 ACUTE PHARYNGITIS 2013 EDUIN WALKER MD Ot 465.9 ACUTE URI NOS 12/06/2013 NAHOMY VALENTINO, CHAD Guzman Ot 592.0 CALCULUS OF KIDNEY 12/07/2013 MARLEY FREEDMAN MD Ot 338.18 OTHER ACUTE POSTOPERATIVE PAIN 12/07/2013 MARLEY FREEDMAN MD Ot 784.1 THROAT PAIN 12/12/2013 ARTUR DO KARI K Ot 593.9 RENAL URETERAL DIS NOS 12/12/2013 ARTUR DO KARI K Ot 599.0 URIN TRACT INFECTION NOS 12/12/2013 ARTUR DO KARI K Ot 782.3 EDEMA 12/12/2013 ARTUR DO KARI K Ot 788.20 RETENTION OF URINE NOS 12/12/2013 ARTUR DO KARI Car Ot V45.89 POSTSURGICAL STATES NEC 12/27/2013 ELIZABETH SANCHEZ MD Ot 724.02 SPINAL STENOSIS, LUMBAR REG, W/OUT NEURO 12/27/2013 ELIZABETH SANCHEZ MD Ot 738.4 ACQ SPONDYLOLISTHESIS 12/27/2013 ELIZABETH SANCHEZ MD Ot V57.1 PHYSICAL THERAPY NEC 02/02/2014 EDUIN WALKER MD Ot 250.00 DIAB JOSELUIS WO COMPL, TYPE II OR UNSPEC TY 02/02/2014 EDUIN WALKER MD Ot 272.0 PURE HYPERCHOLESTEROLEM 02/02/2014 EDUIN WALKER MD Ot 296.50 BIPOL I, REC EPIS (OR CURRENT) DEPRESSED 02/02/2014 EDUIN WALKER MD Ot 300.00 ANXIETY STATE NOS 02/02/2014 EDUIN WALKER MD Ot 338.29 OTHER CHRONIC PAIN 02/02/2014 EDUIN WALKER MD Ot 401.9 HYPERTENSION NOS 02/02/2014 EDUIN WALKER MD Ot 562.11 DIVERTICULITIS COLON (W/O MENT OF HEMORR 02/02/2014 EDUIN WALKER MD Ot 722.6 DISC DEGENERATION NOS 02/02/2014 EDUIN WALKER MD Ot 780.57 UNSPECIFIED SLEEP APNEA 02/02/2014 EDUIN WALKER MD Ot 782.1 NONSPECIF SKIN ERUPT NEC 02/02/2014 EDUIN WALKER MD Ot 789.04 ABDOMINAL PAIN, LEFT LOWER QUADRANT 02/02/2014 EDUIN WALKER MD Ot V58.69 OTH MED,LT,CURRENT USE 07/02/2014 ELVIS PHILLIPS Ot 574.20 CHOLELITHIASIS NOS 07/02/2014 ELVIS PHILLIPS Ot 592.1 CALCULUS OF URETER 07/02/2014 ELVIS PHILLIPS Ot 789.09 ABDOMINAL PAIN, OTHER SPECIFIED SITE 07/10/2014 CHAD COREA MD Ot 592.0 CALCULUS OF KIDNEY 07/10/2014 CHAD COREA MD Ot 592.1 CALCULUS OF URETER 07/30/2014 ELVIS PHILLIPS Ot 592.1 07/31/2014 CHAD COREA MD Ot 592.0 07/31/2014 CHAD COREA MD Ot 592.1 07/31/2014 CHAD COREA MD Ot V72.63 08/06/2014 ELVIS PHILLIPS Ot 592.1 08/28/2014 CHAD COREA MD Ot 592.0 08/28/2014 CHAD COREA MD Ot 592.1 08/28/2014 NAHOMY VALENTINO, CHAD Guzman Ot V72.63 09/18/2014 VENICE ARAUZ DO Ot 278.00 09/18/2014 VENICE ARAUZ DO Ot 296.90 09/18/2014 VENICE ARAUZ DO Ot 327.23 09/18/2014 VENICE ARAUZ DO Ot 786.09 09/27/2014 VENICE ARAUZ DO Ot 278.00 09/27/2014 VENICE ARAUZ DO Ot 296.90 09/27/2014 VENICE ARAUZ DO Ot 327.23 09/27/2014 VENICE ARAUZ DO Ot 786.09 01/06/2015 YOMI NY DO Ot 788.63 01/15/2015 Ot 721.3 01/15/2015 Ot 592.0 01/15/2015 Ot 368.9 01/15/2015 Ot 781.2 01/15/2015 Ot 592.1 01/15/2015 Ot 564.00 01/15/2015 Ot 719.45 01/15/2015 Ot 041.12 01/15/2015 Ot 401.9 01/15/2015 Ot 786.50 01/15/2015 NESHA OWEN C PIPE MANUFACTURE SUPERVISOR Ot 574.20 01/15/2015 RIDNESHA DU C PIPE MANUFACTURE SUPERVISOR Ot 599.70 01/15/2015 CARIDAD VALENTINO, SULLY Gomez Ot V72.84 01/15/2015 ELVIS PHILLIPS Ot 592.1 01/15/2015 NESHA [place] SCOW HAND Ot 592.0 01/15/2015 NAHOMY VALENTINO, CHAD A Ot 592.9 01/15/2015 NAHOMY VALENTINO, CHAD A Ot 592.0 01/15/2015 NAHOMY VALENTINO, CHAD A Ot V72.63 01/15/2015 NAHOMY VALENTINO, CHAD A Ot V72.84 01/15/2015 NAHOMY VALENTINO, CHAD A Ot V74.8 01/15/2015 NAHOMY VALENTINO, CHAD A Ot 592.0 01/15/2015 NAHOMY VALENTINO, CHAD A Ot 592.0 01/15/2015 NAHOMY VALENTINO, CHAD A Ot 592.1 01/15/2015 NAHOMY VALENTINO, CHAD A Ot V72.63 01/15/2015 VENICE ARAUZ DO Ot 278.00 01/15/2015 VENICE ARAUZ DO Ot 296.90 01/15/2015 VENICE ARAUZ DO Ot 327.23 01/15/2015 VENICE ARAUZ DO Ot 786.09 01/15/2015 YOMI [place] DO Ot 788.63 02/06/2015 SWEET PA, MELISSA R Ot 728.87 02/06/2015 SWEET PA, MELISSA R Ot V45.4 02/06/2015 SWEET PA, MELISSA R Ot V57.1 02/06/2015 SWEET PA, MELISSA R Ot 728.87 02/06/2015 SWEET PA, MELISSA R Ot V45.4 02/06/2015 SWEET PA, MELISSA R Ot V57.1 02/06/2015 SWEET PA, MELISSA R Ot 728.87 02/06/2015 SWEET PA, MELISSA R Ot V45.4 02/06/2015 SWEET PA, MELISSA R Ot V57.1 03/01/2015 SWEET PA, MELISSA R Ot 728.87 03/01/2015 SWEET PA, MELISSA R Ot V45.4 03/01/2015 SWEET PA, MELISSA R Ot V57.1 03/05/2015 KARI SIDDIQUI DO Ot 553.20 VENTRAL HERNIA NOS 03/05/2015 KARI SIDDIQUI DO Ot 574.20 CHOLELITHIASIS NOS 03/05/2015 ARTUR JACKSON KARI Josep Ot 789.30 ABDOMINAL/PELVIC SWELLING,MASS/LUMP UNSP 03/20/2015 SWEET PA, MELISSA R Ot 728.87 03/20/2015 SWEET PA, MELISSA R Ot V45.4 03/20/2015 SWEET PA, MELISSA R Ot V57.1 03/27/2015 SWEET PA, MELISSA R Ot 728.87 MUSCLE WEAKNESS (GENERALIZED) 03/27/2015 SWEET PA, MELISSA R Ot V45.4 ARTHRODESIS STATUS 03/27/2015 SWEET PA, MELISSA R Ot V57.1 PHYSICAL THERAPY NEC 05/20/2015 Ot K57.90 DVRTCLOS OF INTEST, PART UNSP, W/O PERF 05/20/2015 Ot K59.00 CONSTIPATION , UNSPECIFIED 06/06/2015 YOMI [place] DO Ot R00.2 06/06/2015 YOMI [place] DO Ot R10.9 06/26/2015 YOMI [place] DO Ot R00.2 06/26/2015 YOMI [place] DO Ot R10.9 08/07/2015 Ot 721.3 08/07/2015 Ot 564.00 08/07/2015 Ot 719.45 08/07/2015 Ot 041.12 08/07/2015 Ot 401.9 08/07/2015 Ot 786.50 08/07/2015 RIDINGS, NESHA C PIPE MANUFACTURE SUPERVISOR Ot 574.20 08/07/2015 RIDNESHA DU PIPE MANUFACTURE SUPERVISOR Ot 599.70 08/07/2015 CARIDAD VALENTINO, SULLY Gomez Ot V72.84 08/07/2015 ELVIS PHILLIPS Ot 592.1 08/07/2015 NESHA [place] SCOW HAND Ot 592.0 08/07/2015 NAHOMY VALENTINO, CHAD A Ot 592.9 08/07/2015 NAHOMY VALENTINO, CHAD A Ot 592.0 08/07/2015 NAHOMY VALENTINO, CHAD A Ot V72.63 08/07/2015 NAHOMY VALENTINO, CHAD A Ot V72.84 08/07/2015 NAHOMY VALENTINO, CHAD A Ot V74.8 08/07/2015 NAHOMY VALENTINO, CHAD A Ot 592.0 08/07/2015 NAHOMY VALENTINO, CHAD A Ot 592.0 08/07/2015 NAHOMY VALENTINO, CHAD A Ot 592.1 08/07/2015 NAHOMY VALENTINO, CHAD A Ot V72.63 08/07/2015 VENICE ARAUZ DO Ot 278.00 08/07/2015 VENICE ARAUZ DO Ot 296.90 08/07/2015 VENICE ARAUZ DO Ot 327.23 08/07/2015 VENICE ARAUZ DO Ot 786.09 08/07/2015 YOMI [place] DO Ot 788.63 08/07/2015 YOMI [place] DO Ot R00.2 08/07/2015 YOMI [place] DO Ot R10.9 08/12/2015 CARIDAD VALENTINO, SULLY Gomez Ot E11.9 TYPE 2 DIABETES MELLITUS WITHOUT COMPLIC 08/12/2015 CARIDAD VALENTINO, SULLY Gomez Ot K80.10 CALCULUS OF GALLBLADDER W CHRONIC CHOLEC 08/28/2015 YOMI [place] DO Ot R00.2 08/28/2015 YOMI [place] DO Ot R10.9 08/30/2015 CARIDAD VALENTINO, SULLY Gomez Ot K82.8 08/30/2015 CARIDAD VALENTINO, SULLY Gomez Ot Z01.812 08/30/2015 CARIDAD VALENTINO, SULLY Gomez Ot Z11.2 09/09/2015 CARIDAD VALENTINO, SULLY Gomez Ot K82.8 09/09/2015 CARIDAD VALENTINO, SULLY Gomez Ot Z01.812 09/09/2015 CARIDAD VALENTINO, SULLY Gomez Ot Z11.2 10/29/2015 VENICE ARAUZ DO Ot G47.33 OBSTRUCTIVE SLEEP APNEA (ADULT) (PEDIATR 11/05/2015 VENICE ARAUZ DO Ot G47.33 11/13/2015 Ot R19.04 12/03/2015 Ot R19.04 LEFT LOWER QUADRANT ABDOMINAL SWELLING, 12/13/2015 Ot R19.04 LEFT LOWER QUADRANT ABDOMINAL SWELLING, 09/24/2016 Ot 719.45 JOINT PAIN- PELVIS 09/24/2016 Ot 041.12 METHICILLIN RESISTANT STAPHYLOCOCCUS AUR 09/24/2016 Ot 401.9 HYPERTENSION NOS 09/24/2016 Ot 786.50 CHEST PAIN NOS 09/24/2016 RIDINGS, NESHA C PIPE MANUFACTURE SUPERVISOR Ot 574.20 CHOLELITHIASIS NOS 09/24/2016 RIDINGS, NESHA C PIPE MANUFACTURE SUPERVISOR Ot 599.70 HEMATURIA, UNSPECIFIED 09/24/2016 CARIDAD VALENTINO, SULLY Gomez Ot V72.84 EXAM PRE-OPERATIVE NOS 09/24/2016 ELVIS PHILLIPS Ot 592.1 CALCULUS OF URETER 09/24/2016 NESHA [place] L SCOW HAND Ot 592.0 CALCULUS OF KIDNEY 09/24/2016 NAHOMY VALENTINO, CHAD Guzman Ot 592.9 URINARY CALCULUS NOS 09/24/2016 NAHOMY VALENTINO, CHAD Guzman Ot 592.0 CALCULUS OF KIDNEY 09/24/2016 NAHOMY VALENTINO, CHAD Guzman Ot V72.63 PRE-PROCEDURAL LABORATORY EXAMINATION 09/24/2016 NAHOMY VALENTINO, CHAD Guzman Ot V72.84 EXAM PRE-OPERATIVE NOS 09/24/2016 NAHOMY VALENTINO, CHAD Guzman Ot V74.8 SCREEN-BACTERIAL DIS NEC 09/24/2016 CHAD COREA MD Ot 592.0 CALCULUS OF KIDNEY 09/24/2016 CHAD COREA MD Ot 592.0 CALCULUS OF KIDNEY 09/24/2016 CHAD COREA MD Ot 592.1 CALCULUS OF URETER 09/24/2016 CHAD COREA MD Ot V72.63 PRE-PROCEDURAL LABORATORY EXAMINATION 09/24/2016 VENICE ARAUZ DO Ot 278.00 OBESITY, NOS 09/24/2016 VENICE ARAUZ DO Ot 296.90 UNSPECIFIED EPISODIC MOOD DISORDER 09/24/2016 VENICE ARAUZ DO Ot 327.23 OBSTRUCTIVE SLEEP APNEA (ADULT) (PEDIATR 09/24/2016 VENICE ARAUZ DO Ot 786.09 RESPIRATORY ABNORM NEC 09/24/2016 YOMI NY DO Ot 788.63 URGENCY OF URINATION 09/24/2016 YOMI NY DO Ot R00.2 PALPITATIONS 09/24/2016 YOMI NY DO Ot R10.9 UNSPECIFIED ABDOMINAL PAIN 09/24/2016 CARIDAD VALENTINO, SULLY Gomez Ot K82.8 OTHER SPECIFIED DISEASES OF GALLBLADDER 09/24/2016 CARIDAD VALENTINO, SULLY Gomez Ot Z01.812 ENCOUNTER FOR PREPROCEDURAL LABORATORY E 09/24/2016 CARIDAD VALENTINO, SULLY Gomez Ot Z11.2 ENCOUNTER FOR SCREENING FOR OTHER BACTER 09/24/2016 Ot R19.04 LEFT LOWER QUADRANT ABDOMINAL SWELLING, 09/25/2016 YOMI NY DO Ot L73.9 FOLLICULAR DISORDER, UNSPECIFIED 10/16/2016 YOMI NY DO Ot L73.9 FOLLICULAR DISORDER, UNSPECIFIED 10/23/2016 YOMI NY DO Ot L73.9 FOLLICULAR DISORDER, UNSPECIFIED 01/07/2017 KARI SIDDIQUI DO Ot 462 ACUTE PHARYNGITIS 01/07/2017 KARI SIDDIQUI DO Ot 473.9 CHRONIC SINUSITIS NOS 01/08/2017 YOMI NY DO Ot I10 ESSENTIAL (PRIMARY) HYPERTENSION 01/08/2017 YOMI NY DO Ot R07.9 CHEST PAIN, UNSPECIFIED 01/08/2017 YOMI NY DO Ot R53.83 OTHER FATIGUE 01/08/2017 YOMI NY DO Ot I10 ESSENTIAL (PRIMARY) HYPERTENSION 01/08/2017 YOMI NY DO Ot R07.9 CHEST PAIN, UNSPECIFIED 01/08/2017 YOMI NY DO Ot R53.83 OTHER FATIGUE 01/08/2017 YOMI NY DO Ot I10 ESSENTIAL (PRIMARY) HYPERTENSION 01/08/2017 YOMI NY DO Ot R07.9 CHEST PAIN, UNSPECIFIED 01/08/2017 YOMI NY DO Ot R53.83 OTHER FATIGUE 01/08/2017 YOMI NY DO J Ot I10 ESSENTIAL (PRIMARY) HYPERTENSION 01/08/2017 NY DO, YOMI Bran Ot R07.9 CHEST PAIN, UNSPECIFIED 01/08/2017 NY DOYOMI Ot R53.83 OTHER FATIGUE 01/08/2017 NY DO, YOMI Bran Ot I10 ESSENTIAL (PRIMARY) HYPERTENSION 01/08/2017 [place] DO, YOMI Bran Ot R07.9 CHEST PAIN, UNSPECIFIED 01/08/2017 NY DOYOMI Ot R53.83 OTHER FATIGUE 01/08/2017 [place] DO, YOMI J Ot I10 ESSENTIAL (PRIMARY) HYPERTENSION 01/08/2017 NY DO, YOMI rBan Ot R07.9 CHEST PAIN, UNSPECIFIED 01/08/2017 [place] DO, YOMI Bran Ot R53.83 OTHER FATIGUE 01/08/2017 [place] DO, YOMI Bran Ot I10 ESSENTIAL (PRIMARY) HYPERTENSION 01/08/2017 [place] DO, YOMI Bran Ot R07.9 CHEST PAIN, UNSPECIFIED 01/08/2017 NY DOYOMI Ot R53.83 OTHER FATIGUE 01/11/2017 [place] DO, YOMI Bran Ot I07.9 RHEUMATIC TRICUSPID VALVE DISEASE, UNSPE 01/11/2017 [place] DO, YOMI Bran Ot I10 ESSENTIAL (PRIMARY) HYPERTENSION 01/11/2017 NY DOYOMI Ot R53.83 OTHER FATIGUE 01/14/2017 [place] DO, YOMI Bran Ot I07.9 RHEUMATIC TRICUSPID VALVE DISEASE, UNSPE 01/14/2017 NY DOYOMI Ot I10 ESSENTIAL (PRIMARY) HYPERTENSION 01/14/2017 NY DOYOMI Ot R53.83 OTHER FATIGUE 01/26/2017 [place] DO, YOMI J Ot I10 ESSENTIAL (PRIMARY) HYPERTENSION 01/26/2017 [place] DO, YOMI Bran Ot R07.9 CHEST PAIN, UNSPECIFIED 01/26/2017 [place] DO, YOMI Bran Ot R53.83 OTHER FATIGUE 02/02/2017 [place] DO, YOMI J Ot I07.9 RHEUMATIC TRICUSPID VALVE DISEASE, UNSPE 02/02/2017 [place] DO, YOMI J Ot I10 ESSENTIAL (PRIMARY) HYPERTENSION 02/02/2017 NY DOYOMI Ot R53.83 OTHER FATIGUE 02/02/2017 [place] DO, YOMI J Ot I10 ESSENTIAL (PRIMARY) HYPERTENSION 02/02/2017 YOMI NY DO Ot R07.9 CHEST PAIN, UNSPECIFIED 02/02/2017 YOMI NY DO Ot R53.83 OTHER FATIGUE 02/23/2017 YANELY JACKSON YOMI Yina Ot I07.9 RHEUMATIC TRICUSPID VALVE DISEASE, UNSPE 02/23/2017 YOMI NY DO Ot I10 ESSENTIAL (PRIMARY) HYPERTENSION 02/23/2017 YOMI NY DO Ot R53.83 OTHER FATIGUE 04/22/2018 NESHA OWEN PIPE MANUFACTURE SUPERVISOR Ot 574.20 CHOLELITHIASIS NOS 04/22/2018 NESHA OWEN C PIPE MANUFACTURE SUPERVISOR Ot 599.70 HEMATURIA, UNSPECIFIED 04/22/2018 CARIDAD VALENTINO, SULLY Gomez Ot V72.84 EXAM PRE-OPERATIVE NOS 04/22/2018 ELVIS PHILLIPS Ot 592.1 CALCULUS OF URETER 04/22/2018 NESHA NY SCOW HAND Ot 592.0 CALCULUS OF KIDNEY 04/22/2018 NAHOMY VALENTINO, CHAD Guzman Ot 592.9 URINARY CALCULUS NOS 04/22/2018 NAHOMY VALENTINO, CHAD Guzman Ot 592.0 CALCULUS OF KIDNEY 04/22/2018 NAHOMY VALENTINO, CHAD Guzman Ot V72.63 PRE-PROCEDURAL LABORATORY EXAMINATION 04/22/2018 CHAD COREA MD Ot V72.84 EXAM PRE-OPERATIVE NOS 04/22/2018 NAHOMY VALENTINO, CHAD Guzman Ot V74.8 SCREEN-BACTERIAL DIS NEC 04/22/2018 CHAD COREA MD Ot 592.0 CALCULUS OF KIDNEY 04/22/2018 CHAD COREA MD Ot 592.0 CALCULUS OF KIDNEY 04/22/2018 NAHOMY VALENTINO, CHAD Guzman Ot 592.1 CALCULUS OF URETER 04/22/2018 CHAD COREA MD Ot V72.63 PRE-PROCEDURAL LABORATORY EXAMINATION 04/22/2018 VENICE ARAUZ DO Ot 278.00 OBESITY, NOS 04/22/2018 VENICE ARAUZ DO Ot 296.90 UNSPECIFIED EPISODIC MOOD DISORDER 04/22/2018 VENICE ARAUZ DO Ot 327.23 OBSTRUCTIVE SLEEP APNEA (ADULT) (PEDIATR 04/22/2018 REGLA DO, VENICE M Ot 786.09 RESPIRATORY ABNORM NEC 04/22/2018 YOMI NY DO Ot 788.63 URGENCY OF URINATION 04/22/2018 YOMI NY DO Ot R00.2 PALPITATIONS 04/22/2018 YOMI NY DO Ot R10.9 UNSPECIFIED ABDOMINAL PAIN 04/22/2018 CARIDAD VALENTINO, SULLY Gomez Ot K82.8 OTHER SPECIFIED DISEASES OF GALLBLADDER 04/22/2018 CARIDAD VALENTINO, SULLY Gomez Ot Z01.812 ENCOUNTER FOR PREPROCEDURAL LABORATORY E 04/22/2018 CARIDAD VALENTINO, SULLY Gomez Ot Z11.2 ENCOUNTER FOR SCREENING FOR OTHER BACTER 04/22/2018 Ot R19.04 LEFT LOWER QUADRANT ABDOMINAL SWELLING, 04/22/2018 YOMI NY DO Ot L73.9 FOLLICULAR DISORDER, UNSPECIFIED 04/22/2018 YOMI NY DO Ot I10 ESSENTIAL (PRIMARY) HYPERTENSION 04/22/2018 YOMI NY DO Ot R07.9 CHEST PAIN, UNSPECIFIED 04/22/2018 YOMI NY DO Ot R53.83 OTHER FATIGUE 04/22/2018 YOMI NY DO Ot I07.9 RHEUMATIC TRICUSPID VALVE DISEASE, UNSPE 04/22/2018 YOMI NY DO Ot I10 ESSENTIAL (PRIMARY) HYPERTENSION 04/22/2018 YOMI NY DO Ot R53.83 OTHER FATIGUE 04/26/2018 RIDINGSNESHA PIPE MANUFACTURE SUPERVISOR Ot 574.20 CHOLELITHIASIS NOS 04/26/2018 RIDINGS, NESHA C PIPE MANUFACTURE SUPERVISOR Ot 599.70 HEMATURIA, UNSPECIFIED 04/26/2018 CARIDAD VALENTINO, SULLY Gomez Ot V72.84 EXAM PRE-OPERATIVE NOS 04/26/2018 ELVIS PHILLIPS Ot 592.1 CALCULUS OF URETER 04/26/2018 NESHA NY SCOW HAND Ot 592.0 CALCULUS OF KIDNEY 04/26/2018 CHAD COREA MD Ot 592.9 URINARY CALCULUS NOS 04/26/2018 CHAD COREA MD Ot 592.0 CALCULUS OF KIDNEY 04/26/2018 CHAD COREA MD Ot V72.63 PRE-PROCEDURAL LABORATORY EXAMINATION 04/26/2018 CHAD COREA MD Ot V72.84 EXAM PRE-OPERATIVE NOS 04/26/2018 NAHOMY VALENTINO, CHAD Guzman Ot V74.8 SCREEN-BACTERIAL DIS NEC 04/26/2018 NAHOMY VALENTINO, CHAD Guzman Ot 592.0 CALCULUS OF KIDNEY 04/26/2018 NAHOMY VALENTINO, CHAD Guzman Ot 592.0 CALCULUS OF KIDNEY 04/26/2018 NAHOMY VALENTINO, CHAD Guzman Ot 592.1 CALCULUS OF URETER 04/26/2018 NAHOMY VALENTINO, CHAD Guzman Ot V72.63 PRE-PROCEDURAL LABORATORY EXAMINATION 04/26/2018 VENICE ARAUZ DO Ot 278.00 OBESITY, NOS 04/26/2018 VENICE ARAUZ DO Ot 296.90 UNSPECIFIED EPISODIC MOOD DISORDER 04/26/2018 VENICE ARAUZ DO Ot 327.23 OBSTRUCTIVE SLEEP APNEA (ADULT) (PEDIATR 04/26/2018 VENICE ARAUZ DO Ot 786.09 RESPIRATORY ABNORM NEC 04/26/2018 YOMI NY DO Ot 788.63 URGENCY OF URINATION 04/26/2018 YOMI NY DO Ot R00.2 PALPITATIONS 04/26/2018 YOMI NY DO Ot R10.9 UNSPECIFIED ABDOMINAL PAIN 04/26/2018 CARIDAD VALENTINO, SULLY Gomez Ot K82.8 OTHER SPECIFIED DISEASES OF GALLBLADDER 04/26/2018 CARIDAD VALENTINO, SULLY Gomez Ot Z01.812 ENCOUNTER FOR PREPROCEDURAL LABORATORY E 04/26/2018 CARIDAD VALENTINO, SULLY Gomez Ot Z11.2 ENCOUNTER FOR SCREENING FOR OTHER BACTER 04/26/2018 Ot R19.04 LEFT LOWER QUADRANT ABDOMINAL SWELLING, 04/26/2018 YOMI NY DO Ot L73.9 FOLLICULAR DISORDER, UNSPECIFIED 04/26/2018 YOMI NY DO Ot I10 ESSENTIAL (PRIMARY) HYPERTENSION 04/26/2018 YOMI NY DO Ot R07.9 CHEST PAIN, UNSPECIFIED 04/26/2018 YOMI NY DO Ot R53.83 OTHER FATIGUE 04/26/2018 YOMI NY DO Ot I07.9 RHEUMATIC TRICUSPID VALVE DISEASE, UNSPE 04/26/2018 YOMI NY DO Ot I10 ESSENTIAL (PRIMARY) HYPERTENSION 04/26/2018 YOMI NY DO Ot R53.83 OTHER FATIGUE 04/27/2018 CARIDAD VALENTINO, SULLY Gomez Ot K43.2 INCISIONAL HERNIA WITHOUT OBSTRUCTION OR 04/27/2018 CARIDAD VALENTINO, SULLY M Ot Z98.890 OTHER SPECIFIED POSTPROCEDURAL STATES 05/18/2018 CARIDAD VALENTINO, SULLY Gomez Ot K43.2 INCISIONAL HERNIA WITHOUT OBSTRUCTION OR 05/18/2018 CARIDAD VALENTINO, SULLY Gomez Ot Z98.890 OTHER SPECIFIED POSTPROCEDURAL STATES Procedures Code Description Performed By Performed On 56.0 TU REMOV URETER OBSTRUCT 10/16/2009 36100 INDIV PSYTX 45/50 MIN 07/08/2012 18212 PSYTX PT&/FAMILY 45 MINUTES 08/19/2012 27677 PSYTX PT&/FAMILY 45 MINUTES 09/27/2012 78438 PSYTX PT&/FAMILY 45 MINUTES 10/17/2012 70839 PSYTX PT&/FAMILY 45 MINUTES 10/26/2012 90110 ROUTINE VENIPUNCTURE 10/27/2012 91459 UA LONG DIP 10/27/2012 08662 CREATININE 10/27/2012 8776194 GFR CALC (RESULT ONLY) 10/27/2012 63826 LITHIUM 10/27/2012 13275 PSYTX PT&/FAMILY 45 MINUTES 11/23/2012 37043 PSYTX PT&/FAMILY 45 MINUTES 12/07/2012 69927 PSYTX PT&/FAMILY 45 MINUTES 12/21/2012 05979 PSYTX PT&/FAMILY 45 MINUTES 01/23/2013 48551 PSYTX PT&/FAMILY 45 MINUTES 03/27/2013 89079 ROUTINE VENIPUNCTURE 04/03/2013 02729 CBC 04/03/2013 52366 CMP 04/03/2013 9880897 GFR CALC (RESULT ONLY) 04/03/2013 58608 PSYTX PT&/FAMILY 45 MINUTES 04/03/2013 88225 LITHIUM 04/03/2013 29190 TSH 04/03/2013 69764 PSYTX PT&/FAMILY 45 MINUTES 05/26/2013 72300 PSYTX PT&/FAMILY 45 MINUTES 06/09/2013 26281 PSYTX PT&/FAMILY 45 MINUTES 08/22/2013 07931 PSYTX PT&/FAMILY 45 MINUTES 11/10/2013 83290 PSYTX PT&/FAMILY 45 MINUTES 03/06/2014 07457 PSYTX PT&/FAMILY 45 MINUTES 05/21/2014 Results Test Result Range Methicillin resistant Staphylococcus aureus (MRSA) screening culture - 10:03 Methicillin resistant Staphylococcus aureus (MRSA) screening culture NEG NRG Complete blood count (CBC) with automated white blood cell (WBC) differential - 05/23/18 12:35 Blood leukocytes automated count (number/volume) 10.9 10*3/uL 4.3-11.0 Blood erythrocytes automated count (number/volume) 5.43 10*6/uL 4.35-5.85 Venous blood hemoglobin measurement (mass/volume) 16.4 g/dL 13.3-17.7 Blood hematocrit (volume fraction) 46 % 40-54 Automated erythrocyte mean corpuscular volume 85 [foz_us] 80-99 Automated erythrocyte mean corpuscular hemoglobin (mass per erythrocyte) 30 pg 25-34 Automated erythrocyte mean corpuscular hemoglobin concentration measurement ( mass/volume) 36 g/dL 32-36 Automated erythrocyte distribution width ratio 15.5 % 10.0-14.5 Automated blood platelet count (count/volume) 270 10*3/uL 130-400 Automated blood platelet mean volume measurement 9.7 [foz_us] 7.4-10.4 Automated blood neutrophils/100 leukocytes 73 % 42-75 Automated blood lymphocytes/100 leukocytes 15 % 12-44 Blood monocytes/100 leukocytes 9 % 0-12 Automated blood eosinophils/100 leukocytes 3 % 0-10 Automated blood basophils/100 leukocytes 0 % 0-10 Blood neutrophils automated count (number/volume) 8.0 10*3 1.8-7.8 Blood lymphocytes automated count (number/volume) 1.6 10*3 1.0-4.0 Blood monocytes automated count (number/volume) 1.0 10*3 0.0-1.0 Automated eosinophil count 0.3 10*3/uL 0.0-0.3 Automated blood basophil count (count/volume) 0.0 10*3/uL 0.0-0.1 Methicillin resistant Staphylococcus aureus (MRSA) screening culture - 12:35 Methicillin resistant Staphylococcus aureus (MRSA) screening culture NEG NRG Encounters ACCT No. Visit Date/Time Discharge Status Pt. Type Provider Facility Loc./Unit Complaint [id number] 05/21/2014 11:01:00 05/21/2014 23:59:59 CLS Outpatient BOEKHOUT PHD ADEEL A [id number] 03/05/2014 14:10:00 03/05/2014 23:59:59 CLS Outpatient MIGUEL ANGEL OCHOAADEEL [id number] 11/09/2013 10:54:00 11/09/2013 23:59:59 CLS Outpatient MIGUEL ANGEL OCHOAADEEL [id number] 08/21/2013 12:52:00 08/21/2013 23:59:59 CLS Outpatient MIGUEL ANGEL ADEEL OCHOA [id number] 06/08/2013 09:42:00 06/08/2013 23:59:59 CLS Outpatient MIGUEL ANGEL ADEEL OCHOA [id number] 05/25/2013 09:56:00 05/25/2013 23:59:59 CLS Outpatient MIGUEL ANGEL ADEEL OCHOA [id number] 04/03/2013 10:50:00 04/03/2013 23:59:59 CLS Outpatient STAR RUSSO DO [id number] 10/27/2012 13:44:00 10/27/2012 23:59:59 CLS Outpatient STAR RUSSO DO [id number] 10/25/2012 09:31:00 10/25/2012 23:59:59 CLS Outpatient [id number] 10/14/2012 13:44:00 10/14/2012 23:59:59 CLS Outpatient [id number] 09/26/2012 13:49:00 09/26/2012 23:59:59 CLS Outpatient [id number] 09/02/2012 09:56:00 09/02/2012 23:59:59 CLS Outpatient [id number] 08/18/2012 15:01:00 08/18/2012 23:59:59 CLS Outpatient [id number] 07/08/2012 09:48:00 07/08/2012 23:59:59 CLS Outpatient [id number] 07/08/2012 09:48:00 07/08/2012 23:59:59 CLS Outpatient [id number] 03/23/2013 12:46:00 Document Registration [id number] 01/20/2013 07:52:00 Document Registration [id number] 12/20/2012 08:59:00 Document Registration [id number] 12/06/2012 08:49:00 Document Registration [id number] 11/22/2012 08:39:00 Document Registration [id number] 03/04/2015 22:27:59 ACT Document Registration [id number] 04/22/2017 14:30:00 04/22/2017 23:59:59 CLS Outpatient [facility] [id number] 05/23/2018 11:32:00 05/23/2018 13:40:00 DIS Outpatient SULLY MCLEAN MD [facility] PREOP VENTRAL HERNIA, LEFT LOWER QUAD HERNIA [id number] 04/26/2018 09:53:00 04/26/2018 23:59:59 CLS Outpatient SULLY MCLEAN MD [facility] RAD RECURRENT VENTRAL HERNIA [id number] 01/08/2017 06:39:00 01/08/2017 23:59:59 CLS Outpatient YOMI NY DO [facility] CARD R53.83,I10,R07.9 [id number] 01/06/2017 13:38:00 01/06/2017 23:59:59 CLS Outpatient YOMI NY DO [facility] CARD R53.83,I10,R07.9 [id number] 09/24/2016 09:45:00 09/24/2016 23:59:59 CLS Outpatient YOMI NY DO [facility] LAB RECURRENT FOLLICULITIS [id number] 10/29/2015 14:06:00 10/29/2015 14:42:00 DIS Outpatient VENICE ARAUZ DO [facility] SLEEP ANNITA [id number] 08/12/2015 06:00:00 08/12/2015 14:20:00 DIS Outpatient SULLY MCLEAN MD [facility] SDC DYSKNESIA [id number] 08/07/2015 09:58:00 08/07/2015 23:59:59 CLS Outpatient SULLY MCLEAN MD [facility] PREOP DYSKNESIA [id number] 06/04/2015 12:25:00 06/04/2015 23:59:59 CLS Outpatient YOMI NY DO [facility] CARD PALPITATIONS,ABD PAIN [id number] 02/26/2015 14:17:00 03/27/2015 15:49:00 DIS Outpatient MELISSA BISHOP [facility] REHAB S/P LUMBAR FUSION BILATERAL LE WEAKNESS [id number] 03/04/2015 22:27:00 03/05/2015 02:13:00 DIS Emergency KARI SIDDIQUI DO [facility] ER POSS HERNIA [id number] 11/19/2014 14:00:00 11/19/2014 23:59:59 CLS Outpatient YOMI NY DO [facility] HH URGENCY, POSSIBLE UTI [id number] 08/24/2014 13:23:00 08/24/2014 23:59:59 CLS Outpatient VENICE ARAUZ DO [facility] RT ANNITA, [id number] 07/10/2014 07:35:00 07/10/2014 12:33:00 DIS Outpatient CHAD COREA MD [facility] SDC RIGHT URETERAL STONE AND LEFT RENAL STONE [id number] 07/06/2014 10:51:00 07/06/2014 23:59:59 CLS Outpatient CHAD COREA MD [facility] PREOP RT URETERAL STONE AND LT RENAL STONE [id number] 07/03/2014 14:17:00 07/03/2014 23:59:59 CLS Outpatient ELVIS PHILLIPS [facility] RAD R URETEROLITHASIS [id number] 07/02/2014 20:15:00 07/02/2014 23:45:00 DIS Emergency ELVIS PHILLIPS [facility] ER KIDNEY STONE [id number] 02/02/2014 10:20:00 02/02/2014 12:40:00 DIS Emergency EDUIN WALKER MD [facility] ER LOWER LEFT ADB PAIN [id number] 01/03/2014 13:45:00 01/03/2014 23:59:59 CLS Outpatient CHAD COREA MD [facility] RAD RENAL STONES [id number] 10/30/2013 10:40:00 12/27/2013 09:22:00 DIS Outpatient ELIZABETH SANCHEZ MD [facility] REHAB LUMBAR STENOSIS AND SPONDYLOLESTHESIS [id number] 12/11/2013 23:31:00 12/12/2013 02:00:00 DIS Emergency KARI SIDDIQUI DO [facility] ER CAN'T URINATE [id number] 12/07/2013 09:49:00 12/07/2013 12:39:00 DIS Emergency MARLEY FREEDMAN MD [facility] ER NECK PAIN/BODYACHES [id number] 12/06/2013 08:23:00 12/06/2013 15:35:00 DIS Outpatient CHAD COREA MD [facility] SDC LEFT RENAL STONE [id number] 2013 21:41:00 2013 22:30:00 DIS Emergency EDUIN WALKER MD [facility] ER SORE THROAT, SWOLLEN TONGUE, DIFFICULTY SWALLOWING [id number] 12/01/2013 10:13:00 12/01/2013 23:59:59 CLS Outpatient CHAD COREA MD [facility] PREOP LEFT RENAL STONE [id number] 11/28/2013 09:08:00 11/28/2013 23:59:59 CLS Outpatient CHAD COREA MD [facility] RAD STONE [id number] 11/22/2013 12:19:00 11/22/2013 23:59:59 CLS Outpatient NESHA NY [facility] RAD HEMATURIA/FLANK PAIN/HX OF STONES [id number] 11/20/2013 11:27:00 11/20/2013 13:57:00 DIS Emergency KARI SIDDIQUI DO [facility] ER UNCOMFORTABLE THROAT PAIN BACK PAIN [id number] 11/20/2013 03:48:00 11/20/2013 05:04:00 DIS Emergency EDUIN WALKER MD [facility] ER DIFFICULTY SWALLOWING [id number] 11/17/2013 23:20:00 11/18/2013 01:43:00 DIS Emergency MELISSA MARTINEZ MD [facility] ER ANKLE SWELLING,KIDNEY STONE [id number] 11/03/2013 02:01:00 11/03/2013 02:47:00 DIS Emergency RAS VALENTINO, MICHAEL Thomas [facility] ER FEELS LIKE SOMETHING CAUGHT IN THROAT [id number] 10/23/2013 06:43:00 10/23/2013 09:00:00 DIS Outpatient SULLY MCLEAN MD [facility] SDC DIARRHEA [id number] 10/18/2013 07:41:00 10/18/2013 23:59:59 CLS Outpatient SULLY MCLEAN MD [facility] PREOP DIARRHEA [id number] 10/11/2013 18:03:00 10/12/2013 18:00:00 DIS Inpatient YOMI NY DO [facility] CSD TACHYCARDIA,DYSPNEA [id number] 10/03/2013 09:17:00 10/03/2013 14:54:00 DIS Outpatient ELIZABETH SANCHEZ MD [facility] RAD LUMBAR STUN [id number] 08/31/2013 10:29:00 09/04/2013 13:15:00 DIS Inpatient YOMI NY DO [facility] 4TH FECAL IMPACTION [id number] 08/27/2013 12:30:00 08/27/2013 18:35:00 DIS Emergency ELVIS PHILLIPS [facility] ER CONSTIPATION [id number] 04/28/2013 20:02:00 04/29/2013 07:05:00 DIS Outpatient OUMAR MOFFETT MD [facility] SLEEP ANNITA [id number] 12/14/2012 15:12:00 12/14/2012 23:59:59 CLS Outpatient RIDINGS, NESHA C PIPE MANUFACTURE SUPERVISOR [facility] RAD HEMATURIA [id number] 05/25/2018 10:15:00 PEN Preadmit [facility], LEFT LOWER QUAD HERNIA [id number] 11/12/2015 14:10:00 Document Registration [id number] 05/20/2015 00:27:00 Document Registration [id number] 01/15/2015 08:08:00 Document Registration [id number] 01/15/2015 08:08:00 Document Registration [id number] 10/07/2012 18:48:00 Document Registration [id number] 2011 06:24:00 Document Registration [id number] 09/24/2011 14:07:00 Document Registration [id number] 08/03/2011 15:15:00 Document Registration [id number] 07/21/2011 14:31:00 Document Registration [id number] 2010 14:32:00 Document Registration [id number] 11/10/2010 12:46:00 Document Registration [id number] 01/08/2010 11:21:00 Document Registration [id number] 12/16/2009 13:02:00 Document Registration [id number] 12/09/2009 14:52:00 Document Registration [id number] 05/12/2018 16:27:33 ACT Unknown
[2018-05-25] MEDS ORDERED: morphine INJ 10 MG/ML 1ML (SYR OR VIAL) IV PRN (08:00)
[2018-05-25] MEDS ORDERED: PREGABALIN 75 MG (LYRICA) CAP PO ONE (08:00)
[2018-05-25] MEDS ORDERED: oxyCODONE ER 10 MG (OxyCONTIN CR) TAB PO ONE (08:00)
[2018-05-25] MEDS ORDERED: ceFAZolin 2 GM IV Premixed 50 ML IV ONE (08:00)
[2018-05-25] MEDS ORDERED: ACETAMINOPHEN 500 MG TAB (TYLENOL) PO ONE (08:00)
[2018-05-25] MEDS ORDERED: CELECOXIB 100 MG (CeleBREX) CAP PO ONE (08:00)
[2018-05-25] MEDS ORDERED: ANCEF 2 GM/50 ML PRE-MIXED IVPB IV ONE (08:15)
[2018-05-25] MEDS: LACTATED RINGERS 1,000 ML IV PRN ×3 (08:28→12:15)
[2018-05-25] MEDS ORDERED: fentaNYL INJECTION 100 MCG/2 ML AMP ONE (10:19)
[2018-05-25] MEDS ORDERED: MIDAZOLAM 2 MG/2 ML (VERSED) VIAL ONE (10:19)
[2018-05-25] MEDS ORDERED: BUP/EPI 0.5% 1:200,000 (SENSORCAINE) 30 ML VIAL ONE (10:28)
[2018-05-25] MEDS ORDERED: proPOfol 200 MG/20 ML (DIPRIVAN) VIAL IV ONE (10:45)
[2018-05-25] MEDS ORDERED: LIDOCAINE PF 2% 5 ML (XYLOCAINE) VIAL ONE (10:45)
[2018-05-25] MEDS ORDERED: ONDANSETRON 4 MG/2 ML (SDV) Z0FRAN ONE (10:45)
[2018-05-25] MEDS ORDERED: SEVOFLURANE (ULTANE) 15 ML INHAL SOLN ONE ×10 (10:45→13:17)
[2018-05-25] MEDS ORDERED: ROCURONIUM 10 MG/ML 5 ML SYRINGE IV ONE ×2 (10:45→13:08)
[2018-05-25] MEDS ORDERED: NEOSTIGMINE 1 MG/ML 5 ML SYRINGE ONE (13:16)
[2018-05-25] MEDS ORDERED: GLYCOPYRROLATE 0.2 MG/ML (ROBINUL) 2 ML VIAL ONE (13:16)
[2018-05-25] MEDS ORDERED: BUPIVACAINE 0.5% 30 ML (SENSORCAINE) VIAL ONE (13:17)
[2018-05-25] MEDS: KETOROLAC 30 MG/ML VIAL IV SCH ×3 (14:00→20:49)
[2018-05-25] MEDS ORDERED: morphine INJ 10 MG/ML 1ML (SYR OR VIAL) IVP ONE (14:15)
[2018-05-25] MEDS ORDERED: ONDANSETRON 4 MG/2 ML (SDV) Z0FRAN IVP PRN ×2 (14:15→16:45)
[2018-05-25] MEDS ORDERED: HYDROmorphone 2 MG/ML VIAL (DILAUDID) IV ONE (14:15)
[2018-05-25 16:21] VITALS: BP 136/73
--- NOTE | 2018-05-25 16:31 | Operative Report ---
Operative Report Date of Procedure/Surgery May 25, 2018 Surgeon (s) SULLY MCLEAN MD Supervisor Tellers (s): Jamey Barahona (Med Student III) Post-Operative Diagnosis Recurrent Ventral Hernia Left Spigelian Hernia Procedure Performed Robotic assisted repair of recurrent ventral hernia with mesh Robotic assisted repair of left spigelian hernia with mesh Description of Procedure Anesthesia Type: General Estimated blood loss (mL): Minimal Specimen(s) collected/removed None Description of the Procedure Indication for the procedures: This gentleman presented with a small recurrent hernia around his umbilicus and a left lower quadrant hernia containing small bowel loops. Due to symptoms, it was felt reasonable to consider repair using minimally invasive technique with robotic assistance and mesh reinforcement. Due to previous strangulation of the hernia over the umbilicus and multiple comorbidities with increased risk factors for mesh infection, using a biologic mesh was felt to be appropriate. Informed consent was obtained after reviewing the details of the operation and complications of hematoma, further infection and recurrence. Description of the procedures: He was placed supine on the operating table and general anesthesia induced. IV antibiotics were administered as prophylaxis against wound infection. Sequential compression devices were placed around his legs, to minimize the risk of venous thrombosis. A Hernandez catheter was placed to decompress the bladder during surgery. It was removed at the end of the operation. Abdomen was prepared and draped in the usual sterile manner. Pneumoperitoneum was established using a Veress needle introduced over the right subcostal margin , along the midclavicular line. Intra-abdominal pressure was maintained at 17 mmHg initially. A 12 mm trocar was placed and anatomy visualized using the high definition, 3-dimensional laparoscope, associated with da Kei system. Omentum was adherent to the umbilical area, mainly due to the previous mesh. In addition, a large left Spigelian hernia was identified, containing loops of small bowel. Under direct view, I placed another 12 mm trocar over the right side of the abdomen, along the midclavicular line, followed by an 8 mm trocar over the right lower quadrant. As we progressed to repair the Spigelian hernia , I placed another 8 mm trocar medial to the subcostal trocar. The robotic system was then docked in place. Loops of small bowel contained within the Spigelian hernia were reduced easily. The defect was closed in a transverse fashion using 2 layers of 0, nonabsorbable the LOC suture with robotic assistance. Intra-abdominal pressure was reduced to 8 mmHg during this process, to minimize tension on the suture line. It was then reinforced with a biologic mesh measuring 15 cm in length by 9 cm in width. The mesh was secured to the abdominal musculature with 20V LOC sutures using robotic assistance. We, then turned our attention to the recurrent, small ventral hernia underlying the umbilicus. The pre-existing mesh appeared to be intact and therefore I elected to place another biologic mesh measuring 8 x 4 cm in size. It was secured to the abdominal muscles using 20V LOC sutures with the robotic assistance. The fascia over the incisions was closed using #1 Vicryl and the skin incisions were closed using 4-0 Vicryl, in a subcuticular fashion. 0.5 percent Marcaine with epinephrine was infiltrated along the incisions, both preemptively and at the conclusion of the operation. He tolerated the procedure well, was extubated in the operating room and taken to the recovery room in a stable condition. Findings of the Procedure see op report Allergies and Home Medications Allergies Coded Allergies: Sulfa (Sulfonamide Antibiotics) (Verified Allergy, Intermediate, ITCHING/ NAUSEA, 08/07/15) Iodinated Contrast- Oral and IV Dye (Verified Allergy, Mild, FACIAL ALVAREZ , 05/23/18) aspirin (Verified Allergy, Mild, GI UPSET, 05/23/18) clomipramine (Verified Allergy, Mild, 12/01/13) Home Medications Allopurinol 300 Mg Tablet, 300 MG PO DAILY, (Reported) Amlodipine Besylate 5 Mg Tablet, 5 MG PO DAILY, (Reported) Cephalexin 500 Mg Tablet, 500 MG PO DAILY, (Reported) Cetirizine HCl 10 Mg Tablet, 10 MG PO DAILY, (Reported) Clindamycin Phos/Benzoyl Perox 50 Gm Gel.w.pump, 50 GM TP DAILY, (Reported) Ergocalciferol (Vitamin D2) 50,000 Unit Capsule, 50,000 UNIT PO WEEK, (Reported) Fluticasone Propionate 9.9 Ml [place].susp, 2 SPRAY NS DAILY, (Reported) 2 SPRAYS PER NOSTRIL DAILY X 2 DAYS THEN 1 SPRAY DAILY Hydrochlorothiazide 25 Mg Tablet, 25 MG PO DAILY, (Reported) Lactulose 10 Gm/15 Ml Solution, 10 GM PO PRN PRN for CONSTIPATION-1ST LINE, ( Reported) Lamotrigine 200 Mg Tab, 200 MG PO BID, (Reported) Metformin HCl 500 Mg Tablet, 1,000 MG PO BID, (Reported) Metronidazole/Skin Cleansr #23 1 Each Kit.cl.gel, 1 EACH TP DAILY, (Reported) Potassium Citrate 10 Meq Tablet.er, 20 MEQ PO BID, (Reported) Patient Home Medication List Home Medication List Reviewed: Yes SULLY MCLEAN MD May 25, 2018 16:31
[2018-05-25] MEDS ORDERED: LACTATED RINGERS 1,000 ML IV SCH (16:32)
[2018-05-25] MEDS: fentaNYL INJECTION 100 MCG/2 ML AMP IV PRN (17:19)
[2018-05-25] MEDS: ENOXAPARIN 40 MG/0.4 ML (LOVENOX) SYR SC SCH (17:19)
[2018-05-25 20:12] VITALS: BP 134/77
[2018-05-25] MEDS: inSUlin ASPART (NovoLOG) 1 UNIT/0.01 ML (CHARGE PER UNIT) SC SCH (20:49)
[2018-05-25] MEDS ORDERED: POTASSIUM CITRATE 10 MEQ (UROCIT-K) NON-FORMULARY PO SCH (21:00)
[2018-05-26] VITALS: BP 128/76
[2018-05-26] MEDS: KETOROLAC 30 MG/ML VIAL IV SCH ×4 (02:42→20:51)
[2018-05-26 04:00] VITALS: BP 138/75
[2018-05-26] MEDS: ENOXAPARIN 40 MG/0.4 ML (LOVENOX) SYR SC SCH ×2 (05:13→18:14)
[2018-05-26] MEDS: inSUlin ASPART (NovoLOG) 1 UNIT/0.01 ML (CHARGE PER UNIT) SC SCH ×4 (05:31→20:41)
[2018-05-26 08:00] VITALS: BP 134/77
[2018-05-26] MEDS: HYDROCHLOROTHIAZIDE 25 MG (HCTZ) TAB PO SCH (08:00)
[2018-05-26] MEDS: amLODIPine 5 MG (NORVASC) TAB PO SCH (08:00)
[2018-05-26] MEDS: ALLOPURINOL 300 MG (ZYLOPRIM) TAB PO SCH (08:00)
[2018-05-26] MEDS: FLUTICASONE NASAL SPRAY (FLONASE) 16 GM BTL NS SCH ×2 (08:00→08:02)
[2018-05-26 12:00] VITALS: BP 128/75
[2018-05-26] MEDS ORDERED: OXYC1TAB87 PO (13:06)
--- NOTE | 2018-05-26 13:07 | Discharge Inst-Simple/Standard ---
Discharge Inst-Standard Discharge Medications New, Converted or Re-Newed RX: RX on Chart Patient Instructions/Follow Up Plan of Care/Instructions/FU: Band-Aids off. To wear the binder while out of bed. Follow-up in 4 weeks Activity as Tolerated: No Goal: No lifting or pushing over 10 pounds Discharge Diet: ADA Diet Planned Outpatient Orders/Ref. Pneu Vac Indicated: Yes SULLY MCLEAN MD May 26, 2018 13:07
--- NOTE | 2018-05-26 14:28 | Progress Note-Standard ---
Standard Progress Note Progress Notes/Assess & Plan Date Seen by a Provider: May 26, 2018 Time Seen by a Provider: 14:24 Progress/Assessment & Plan pain control inadequate. incisions dry. Vital signs stable.Needs help to get out of bed independently and therefore he would benefit from another day of hospital stay Final Diagnosis left spigelian hernia. Recurrent ventral hernia SULLY MCLEAN MD May 26, 2018 14:28
[2018-05-26 16:10] VITALS: BP 131/69
[2018-05-26] MEDS: fentaNYL INJECTION 100 MCG/2 ML AMP IV PRN (18:05)
--- NOTE | 2018-05-26 18:39 | Anesthesia-General Post-Op ---
General Patient Condition Mental Status/LOC: Same as Preop Cardiovascular: Satisfactory Nausea/Vomiting: Absent Respiratory: Satisfactory Pain: Controlled Complications: Absent Post Op Complications Complications None Follow Up Care/Instructions Patient Instructions None needed. Anesthesia/Patient Condition Patient Condition Patient was seen this morning and he was doing well, no complaints, stable vital signs, no apparent adverse anesthesia problems. SCOTT ROJO DO May 26, 2018 18:39
[2018-05-26 20:34] VITALS: BP 130/69
[2018-05-27 00:35] VITALS: BP 124/70
[2018-05-27] MEDS: KETOROLAC 30 MG/ML VIAL IV SCH (02:53)
[2018-05-27 04:48] VITALS: BP 133/57
[2018-05-27] MEDS: inSUlin ASPART (NovoLOG) 1 UNIT/0.01 ML (CHARGE PER UNIT) SC SCH ×4 (06:50→20:44)
[2018-05-27] MEDS: ENOXAPARIN 40 MG/0.4 ML (LOVENOX) SYR SC SCH ×2 (06:50→17:12)
[2018-05-27] MEDS: ALLOPURINOL 300 MG (ZYLOPRIM) TAB PO SCH (07:39)
[2018-05-27] MEDS: FLUTICASONE NASAL SPRAY (FLONASE) 16 GM BTL NS SCH (07:39)
[2018-05-27] MEDS: oxyCODONE/APAP 5/325MG (PERCOCET 5) TABLET PO PRN ×3 (07:40→17:13)
[2018-05-27] MEDS: HYDROCHLOROTHIAZIDE 25 MG (HCTZ) TAB PO SCH (07:40)
[2018-05-27] MEDS: amLODIPine 5 MG (NORVASC) TAB PO SCH (07:40)
[2018-05-27 08:00] VITALS: BP 131/76
[2018-05-27 12:00] VITALS: BP 130/63
--- NOTE | 2018-05-27 15:18 | Progress Note-Standard ---
Standard Progress Note Progress Notes/Assess & Plan Date Seen by a Provider: May 27, 2018 Time Seen by a Provider: 13:50 Progress/Assessment & Plan pain control inadequate. incisions dry. Vital signs stable.Needs help to get out of bed independently and therefore he would benefit from another day of hospital stay reports increased pain along the left lower quadrant with need for assistance to get out of bed. Vital signs are stable. Afebrile. No hematoma on examination. Incisions are dry. Lungs clear to auscultation. On DVT prophylaxis with low molecular weight heparin. Tolerating diet. Has not passed flatus. Continue intravenous analgesics and possibly discharge tomorrow Final Diagnosis recurrent ventral hernia with left spigelian hernia SULLY MCLEAN MD May 27, 2018 15:18
[2018-05-27] MEDS: fentaNYL INJECTION 100 MCG/2 ML AMP IV PRN (15:22)
[2018-05-27 16:30] VITALS: BP 124/66
[2018-05-27 20:30] VITALS: BP 129/81
[2018-05-27] MEDS ORDERED: MAGNESIUM CITRATE 300 ML BTL PO ONE (21:00)
[2018-05-27] MEDS ORDERED: MAGNESIUM CITRATE 300 ML BTL ONE (23:22)
[2018-05-28] VITALS: BP 135/70
[2018-05-28] MEDS: oxyCODONE/APAP 5/325MG (PERCOCET 5) TABLET PO PRN ×3 (03:51→13:58)
[2018-05-28 04:00] VITALS: BP 115/68
[2018-05-28] MEDS: ENOXAPARIN 40 MG/0.4 ML (LOVENOX) SYR SC SCH ×2 (05:47→16:55)
[2018-05-28] MEDS: inSUlin ASPART (NovoLOG) 1 UNIT/0.01 ML (CHARGE PER UNIT) SC SCH ×4 (05:48→20:16)
[2018-05-28] MEDS ORDERED: MAGNESIUM CITRATE 300 ML BTL PO NR (07:16)
[2018-05-28 07:50] VITALS: BP 130/71
[2018-05-28] MEDS: HYDROCHLOROTHIAZIDE 25 MG (HCTZ) TAB PO SCH (08:45)
[2018-05-28] MEDS: amLODIPine 5 MG (NORVASC) TAB PO SCH (08:45)
[2018-05-28] MEDS: ALLOPURINOL 300 MG (ZYLOPRIM) TAB PO SCH (08:46)
[2018-05-28] MEDS: FLUTICASONE NASAL SPRAY (FLONASE) 16 GM BTL NS SCH (08:46)
[2018-05-28 12:00] VITALS: BP 115/65
--- NOTE | 2018-05-28 12:11 | Progress Note-Standard ---
Standard Progress Note Progress Notes/Assess & Plan Date Seen by a Provider: May 28, 2018 Time Seen by a Provider: 12:10 Progress/Assessment & Plan pain control inadequate. incisions dry. Vital signs stable.Needs help to get out of bed independently and therefore he would benefit from another day of hospital stay reports increased pain along the left lower quadrant with need for assistance to get out of bed. Vital signs are stable. Afebrile. No hematoma on examination. Incisions are dry. Lungs clear to auscultation. On DVT prophylaxis with low molecular weight heparin. Tolerating diet. Has not passed flatus. Continue intravenous analgesics and possibly discharge tomorrow. patient reports feeling bloated and not having passed flatus. No abdominal distention. Incisions are dry. We will use Reglan to promote GI motility and try magnesium citrate. Continue ambulation and incentive spirometry. Final Diagnosis ventral hernia. Postoperative ileus. SULLY MCLEAN MD May 28, 2018 12:11
[2018-05-28] MEDS ORDERED: METOCLOPRAMIDE 10 MG (REGLAN) TAB ONE (13:56)
[2018-05-28] MEDS: METOCLOPRAMIDE 5 MG (REGLAN) TAB PO SCH ×2 (14:01→20:16)
[2018-05-28 16:00] VITALS: BP 123/69
[2018-05-28 20:00] VITALS: BP 139/70
[2018-05-29 00:39] VITALS: BP 124/63
[2018-05-29 04:00] VITALS: BP 115/62
[2018-05-29] MEDS: METOCLOPRAMIDE 5 MG (REGLAN) TAB PO SCH (05:23)
[2018-05-29] MEDS: ENOXAPARIN 40 MG/0.4 ML (LOVENOX) SYR SC SCH (05:23)
[2018-05-29] MEDS: inSUlin ASPART (NovoLOG) 1 UNIT/0.01 ML (CHARGE PER UNIT) SC SCH ×2 (05:42→11:10)
[2018-05-29 07:59] VITALS: BP 125/69
[2018-05-29] MEDS: amLODIPine 5 MG (NORVASC) TAB PO SCH (09:22)
[2018-05-29] MEDS: ALLOPURINOL 300 MG (ZYLOPRIM) TAB PO SCH (09:22)
[2018-05-29] MEDS: HYDROCHLOROTHIAZIDE 25 MG (HCTZ) TAB PO SCH (09:22)
[2018-05-29] MEDS: oxyCODONE/APAP 5/325MG (PERCOCET 5) TABLET PO PRN (09:22)
[2018-05-29] MEDS: FLUTICASONE NASAL SPRAY (FLONASE) 16 GM BTL NS SCH (09:22)
--- NOTE | 2018-05-29 11:59 | Progress Note-Standard ---
Standard Progress Note Progress Notes/Assess & Plan Date Seen by a Provider: May 29, 2018 Time Seen by a Provider: 10:25 Progress/Assessment & Plan pain control inadequate. incisions dry. Vital signs stable.Needs help to get out of bed independently and therefore he would benefit from another day of hospital stay reports increased pain along the left lower quadrant with need for assistance to get out of bed. Vital signs are stable. Afebrile. No hematoma on examination. Incisions are dry. Lungs clear to auscultation. On DVT prophylaxis with low molecular weight heparin. Tolerating diet. Has not passed flatus. Continue intravenous analgesics and possibly discharge tomorrow. patient reports feeling bloated and not having passed flatus. No abdominal distention. Incisions are dry. We will use Reglan to promote GI motility and try magnesium citrate. Continue ambulation and incentive spirometry. incisional pain much improved. Moving around. Tolerating diet. His GI symptoms are similar to preoperative status and therefore he could be discharged. Final Diagnosis ventral hernia. Postoperative ileus. SULLY MCLEAN MD May 29, 2018 11:59
[2018-05-29] MEDS ORDERED: METOCLOPRAMIDE INJ 10 MG/2 ML (REGLAN) IVP SCH (12:00)
--- NOTE | 2018-05-29 12:03 | Discharge Summary ---
Diagnosis/Chief Complaint Date of Admission May 28, 2018 at 12:32 Date of Discharge 05/29/18 Discharge Date: May 29, 2018 Discharge Time: 12:00 Admission Diagnosis Admission Diagnosis ventral hernia. Left lower quadrant hernia Discharge Diagnosis recurrent ventral hernia. Left Spigelian hernia. Postoperative ileus Reason Hospital Visit Elective admission to undergo repair of a hernia over the left lower quadrant of his abdomen and the midline using robotic assistance. At laparoscopy, left Spigelian hernia confirmed and repaired with reinforcement using a biologic mesh. Recurrent ventral hernia reinforced with another biologic mesh. Postoperative recovery rather slow due to ileus and inadequate pain control. Eventually, he returned to his preoperative status with reference to his GI symptoms. At the time of discharge, he is ambulating independently and his pain is well controlled with oral medication. He'll be followed up in 3 weeks. In the meantime, we would verify his recovery with telephone calls Discharge Summary Procedures robotic assisted repair of left spigelian hernia and recurrent ventral hernia with biologic mesh Consultations None Discharge Physical Examination Allergies: Coded Allergies: Sulfa (Sulfonamide Antibiotics) (Verified Allergy, Intermediate, ITCHING/ NAUSEA, 08/07/15) Iodinated Contrast- Oral and IV Dye (Verified Allergy, Mild, FACIAL ALVAREZ , 05/23/18) aspirin (Verified Allergy, Mild, GI UPSET, 05/23/18) clomipramine (Verified Allergy, Mild, 12/01/13) Vitals & I&Os Vital Signs Date Time Temp Pulse Resp B/P (MAP) Pulse Ox O2 Delivery O2 Flow Rate FiO2 05/29/18 07:59 98.6 83 20 125/69 (87) 98 Room Air 05/26/18 12:00 2.00 Hospital Course Labs (last 24 hrs) Laboratory Tests 05/25/18 08:35: Glucometer 188H 05/25/18 20:34: Glucometer 194H 05/26/18 05:19: Glucometer 137H 05/26/18 12:01: Glucometer 198H 05/26/18 16:46: Glucometer 121H 05/26/18 20:38: Glucometer 170H 05/27/18 05:53: Glucometer 184H 05/27/18 10:52: Glucometer 195H 05/27/18 16:52: Glucometer 151H 05/27/18 20:13: Glucometer 160H 05/27/18 23:51: Glucometer 187H 05/28/18 05:44: Glucometer 181H 05/28/18 10:48: Glucometer 188H 05/28/18 16:34: Glucometer 165H 05/28/18 20:09: Glucometer 146H 05/29/18 05:17: Glucometer 164H 05/29/18 10:27: Glucometer 196H Pending Labs Laboratory Tests 05/25/18 08:35: Glucometer 188 05/25/18 20:34: Glucometer 194 05/26/18 05:19: Glucometer 137 05/26/18 12:01: Glucometer 198 05/26/18 16:46: Glucometer 121 05/26/18 20:38: Glucometer 170 05/27/18 05:53: Glucometer 184 05/27/18 10:52: Glucometer 195 05/27/18 16:52: Glucometer 151 05/27/18 20:13: Glucometer 160 05/27/18 23:51: Glucometer 187 05/28/18 05:44: Glucometer 181 05/28/18 10:48: Glucometer 188 05/28/18 16:34: Glucometer 165 05/28/18 20:09: Glucometer 146 05/29/18 05:17: Glucometer 164 05/29/18 10:27: Glucometer 196 Discharge Home Medications: Active Scripts Active Percocet 5-325 mg Tablet (Oxycodone HCl/Acetaminophen) 1 Each Tablet 1 Tab PO Q4H PRN MDD 6 Reported Cetirizine HCl 10 Mg Tablet 10 Mg PO DAILY Cephalexin 500 Mg Tablet 500 Mg PO DAILY [place] 0.75% Gel Kit (Metronidazole/Skin Cleansr #23) 1 Each Kit.cl.gel 1 Each TP DAILY Clind pH-Benzoyl [place] 1.2-2.5% (Clindamycin Phos/Benzoyl Perox) 50 Gm Gel.w.pump 50 Gm TP DAILY Generlac (Lactulose) 10 Gm/15 Ml Solution 10 Gm PO PRN PRN Hydrochlorothiazide 25 Mg Tablet 25 Mg PO DAILY Vitamin D2 (Ergocalciferol (Vitamin D2)) 50,000 Unit Capsule 50,000 Unit PO WEEK Flonase Allergy Relief (Fluticasone Propionate) 9.9 Ml [place].susp 2 [place] NS DAILY 2 SPRAYS PER NOSTRIL DAILY X 2 DAYS THEN 1 SPRAY DAILY Amlodipine Besylate 5 Mg Tablet 5 Mg PO DAILY Metformin HCl 500 Mg Tablet 1,000 Mg PO BID Potassium Citrate ER (Potassium Citrate) 10 Meq Tablet.er 20 Meq PO BID Allopurinol 300 Mg Tablet 300 Mg PO DAILY Lamictal (Lamotrigine) 200 Mg Tab 200 Mg PO BID Instructions to patient/family Please see electronic discharge instructions given to patient. Clinical Quality Measures DVT/VTE Risk/Contraindication: Risk Factor Score Per Nursin RFS Level Per Nursing on Admit: 3=High SULLY MCLEAN MD May 29, 2018 12:03
[2018-05-29 14:10] VITALS: BP 138/78
--- NOTE | 2018-06-01 16:40 | Physician Query Clarification ---
PQ-Further Specificity Admission/Discharge Admission Date: May 28, 2018 at 12:32 Discharge Date: May 29, 2018 at 14:10 The medical record reflects the following clinical scenario: History/Risk Factors: hernia repair Clinical Findings: ileus, postop Treatment: Reglan, magnesium citrate Question: Can you further specify postoperative ileus per the clinical indicators above? Please document below. 1. postoperative ileus, NOT a postoperative complication 2. postoperative ileus, postoperative complication 3. Other, with explanation of the clinical findings. 4. Clinically undetermined, no explanation for the clinical findings. PHYSICIAN RESPONSE Can you specify per above: 1 In responding to this query, please exercise your independent professional judgment. The purpose of this communication is to more accurately reflect the complexity of your patients condition. The fact that a question is asked does not imply that any particular answer is desired or expected. Thank you for your timely response to this clarification. Requestors name: [ ] Phone # [ ] THIS PHYSICIAN QUERY FORM IS A PERMANENT PART OF THE MEDICAL RECORD LAURIE OVERTON Jun 01, 2018 16:40 SULLY MCLEAN MD Jun 02, 2018 10:20
--- OUTSIDE RECORDS SUMMARY | 2018-06-03 10:38 | XMS REPORT | Clinical Summary ---
Author Author [facility] Organization [facility] Address Unknown Phone Unavailable Care Team Providers Care Carpenter/Labor Name Role Phone Gregory Mcfadden MD Unavailable Source Comments Some departments are not documenting in the electronic medical record. If you do not see the information that you expected, contact Release of Information in the Health Information Management department at [phone] for further assistance in locating additional records.[facility] Allergies Active Allergy Reactions Severity Noted [...] Taken Blood Pressure 144/93 06/13/2012 11:32 AM INFANT NANNY Pulse 87 06/13/2012 11:32 AM INFANT NANNY Temperature - - Respiratory Rate - - Oxygen Saturation - - Inhaled Oxygen - - Concentration Weight 132.7 kg (292 lb 9.6 oz) 06/13/2012 11:32 AM INFANT NANNY Height 175.3 cm (5' 9") 06/13/2012 11:32 AM INFANT NANNY Body Mass Index 43.21 06/13/2012 11:32 AM INFANT NANNY Plan of Treatment Health Maintenance Due Date Last Done Comments HEPATITIS C SCREENING 1959 PHYSICAL (COMPREHENSIVE) 12/03/1966 EXAM PERTUSSIS VACCINE 12/03/1970 HIV SCREENING 12/03/1974 TETANUS VACCINE 12/03/1976 COLORECTAL CANCER 12/03/2009 SCREENING SHINGLES RECOMBINANT 12/03/2009 VACCINE (1 of 2) INFLUENZA VACCINE 03/09/2018 Results Not on filefrom Last 3 Months
--- OUTSIDE RECORDS SUMMARY | 2018-06-03 10:42 | XMS REPORT | Continuity of Care Document ---
Author Author [facility] Address Unknown Phone Unavailable Allergies Active Description Code Type Severity Reaction Onset Reported/Identified Relationship to Patient Clinical Status Yes enalapril-hydrochlorothiazide Drug Allergy 03/24/2011 Yes Anafranil Drug Allergy 05/25/2011 Yes Anafranil Drug Allergy N/A N/A 05/25/2011 Yes clomipramine [id number] Drug Allergy Mild N/A 12/01/2013 Yes aspirin [id number] Drug Allergy Unknown N/A 12/01/2013 Yes Sulfa (Sulfonamide Antibiotics) [id number] Drug Allergy Moderate ITCHING/NAUSEA 08/07/2015 Yes aspirin [id number] Drug Allergy Mild GI UPSET 05/23/2018 Yes Iodinated Contrast- Oral and IV Dye [id number] Drug Allergy Mild FACIAL ALVAREZ 05/23/2018 Medications [...] 268.9 VITAMIN D DEFICIENCY NOS 09/04/2013 YOMI YN DO Ot 272.4 HYPERLIPIDEMIA NEC/NOS 09/04/2013 YOMI NY DO Ot 274.9 GOUT NOS 09/04/2013 YOMI NY DO Ot 278.01 MORBID OBESITY 09/04/2013 YOMI NY DO Ot 296.80 BIPOLAR DISORDER, UNSPECIFIED 09/04/2013 YOMI NY DO Ot 327.23 OBSTRUCTIVE SLEEP APNEA (ADULT) (PEDIATR 09/04/2013 YOMI NY DO Ot 560.32 FECAL IMPACTION 09/04/2013 YOMI NY DO Ot 574.20 CHOLELITHIASIS NOS 09/04/2013 [...] 01/15/2015 Ot 786.50 01/15/2015 NESHA OWEN C ANIMAL SHELTER MANAGER Ot 574.20 01/15/2015 RIDNESHA DU C ANIMAL SHELTER MANAGER Ot 599.70 01/15/2015 CARIDAD VALENTINO, SULLY Gomez Ot V72.84 01/15/2015 ELVIS PHILLIPS Ot 592.1 01/15/2015 NESHA NY FLIPPING MACHINE OPERATOR Ot 592.0 01/15/2015 NAHOMY VALENTINO, CHAD A [...] 08/07/2015 Ot 786.50 08/07/2015 RIDINGS, NESHA C ANIMAL SHELTER MANAGER Ot 574.20 08/07/2015 RIDNESHA DU ANIMAL SHELTER MANAGER Ot 599.70 08/07/2015 CARIDAD VALENTINO, SULLY Gomez Ot V72.84 08/07/2015 ELVIS PHILLIPS Ot 592.1 08/07/2015 NESHA NY FLIPPING MACHINE OPERATOR Ot 592.0 08/07/2015 NAHOMY VALENTINO, CHAD A [...] CHEST PAIN NOS 09/24/2016 RIDINGS, NESHA C ANIMAL SHELTER MANAGER Ot 574.20 CHOLELITHIASIS NOS 09/24/2016 RIDINGS, NESHA C ANIMAL SHELTER MANAGER Ot 599.70 HEMATURIA, UNSPECIFIED 09/24/2016 CARIDAD VALENTINO, SULLY Gomez Ot V72.84 EXAM PRE-OPERATIVE NOS 09/24/2016 ELVIS PHILLIPS Ot 592.1 CALCULUS OF URETER 09/24/2016 NESHA NY L FLIPPING MACHINE OPERATOR Ot 592.0 CALCULUS OF KIDNEY 09/24/2016 NAHOMY [...] Ot R53.83 OTHER FATIGUE 04/22/2018 NESHA OWEN ANIMAL SHELTER MANAGER Ot 574.20 CHOLELITHIASIS NOS 04/22/2018 NESHA OWEN C ANIMAL SHELTER MANAGER Ot 599.70 HEMATURIA, UNSPECIFIED 04/22/2018 CARIDAD VALENTINO, SULLY Gomez Ot V72.84 EXAM PRE-OPERATIVE NOS 04/22/2018 ELVIS PHILLIPS Ot 592.1 CALCULUS OF URETER 04/22/2018 NESHA NY FLIPPING MACHINE OPERATOR Ot 592.0 CALCULUS OF KIDNEY 04/22/2018 NAHOMY [...] DO Ot R53.83 OTHER FATIGUE 04/26/2018 RIDINGSNESHA ANIMAL SHELTER MANAGER Ot 574.20 CHOLELITHIASIS NOS 04/26/2018 RIDINGS, NESHA C ANIMAL SHELTER MANAGER Ot 599.70 HEMATURIA, UNSPECIFIED 04/26/2018 CARIDAD VALENTINO, SULLY Gomez Ot V72.84 EXAM PRE-OPERATIVE NOS 04/26/2018 ELVIS PHILLIPS Ot 592.1 CALCULUS OF URETER 04/26/2018 NESHA NY FLIPPING MACHINE OPERATOR Ot 592.0 CALCULUS OF KIDNEY 04/26/2018 CHAD [...] DO Ot I10 ESSENTIAL (PRIMARY) HYPERTENSION 04/26/2018 OYMI NY DO Ot R53.83 OTHER FATIGUE 04/27/2018 CARIDAD VALENTINO, SULLY Gomez Ot K43.2 INCISIONAL HERNIA WITHOUT OBSTRUCTION OR 04/27/2018 SULLY MCLEAN MD Ot Z98.890 OTHER SPECIFIED POSTPROCEDURAL STATES 05/18/2018 SULLY MCLEAN MD Ot K43.2 INCISIONAL HERNIA WITHOUT OBSTRUCTION OR 05/18/2018 SULLY MCLEAN MD Ot Z98.890 OTHER SPECIFIED POSTPROCEDURAL STATES 05/26/2018 SULLY MCLEAN MD Ot K43.9 VENTRAL HERNIA WITHOUT OBSTRUCTION OR GA 05/26/2018 SULLY MCLEAN MD Ot Z01.812 ENCOUNTER FOR PREPROCEDURAL LABORATORY E 05/26/2018 SULLY MCLEAN MD Ot Z11.2 ENCOUNTER FOR SCREENING FOR OTHER BACTER 05/26/2018 SULLY MCLEAN MD Ot K43.9 VENTRAL HERNIA WITHOUT OBSTRUCTION OR GA 05/26/2018 SULLY MCLEAN MD Ot Z01.812 ENCOUNTER FOR PREPROCEDURAL LABORATORY E 05/26/2018 SULLY MCLEAN MD Ot Z11.2 ENCOUNTER FOR SCREENING FOR OTHER BACTER 05/26/2018 SULLY MCLEAN MD Ot K43.2 INCISIONAL HERNIA WITHOUT OBSTRUCTION OR 05/26/2018 SULLY MCLEAN MD Ot Z98.890 OTHER SPECIFIED POSTPROCEDURAL STATES Procedures Code Description Performed By Performed On 56.0 TU REMOV URETER OBSTRUCT 10/16/2009 19192 INDIV PSYTX 45/50 MIN 07/08/2012 95381 PSYTX PT&/FAMILY 45 MINUTES 08/19/2012 00564 PSYTX PT&/FAMILY 45 MINUTES 09/27/2012 97046 PSYTX PT&/FAMILY 45 MINUTES 10/17/2012 92276 PSYTX PT&/FAMILY 45 MINUTES 10/26/2012 47419 ROUTINE VENIPUNCTURE 10/27/2012 60479 UA LONG DIP 10/27/2012 66370 CREATININE 10/27/2012 0189693 GFR CALC (RESULT ONLY) 10/27/2012 75672 LITHIUM 10/27/2012 57843 PSYTX PT&/FAMILY 45 MINUTES 11/23/2012 91049 PSYTX PT&/FAMILY 45 MINUTES 12/07/2012 76995 PSYTX PT&/FAMILY 45 MINUTES 12/21/2012 67539 PSYTX PT&/FAMILY 45 MINUTES 01/23/2013 08506 PSYTX PT&/FAMILY 45 MINUTES 03/27/2013 67377 ROUTINE VENIPUNCTURE 04/03/2013 20002 CBC 04/03/2013 02457 CMP 04/03/2013 4116957 GFR CALC (RESULT ONLY) 04/03/2013 64137 PSYTX PT&/FAMILY 45 MINUTES 04/03/2013 25690 LITHIUM 04/03/2013 19509 TSH 04/03/2013 36335 PSYTX PT&/FAMILY 45 MINUTES 05/26/2013 32344 PSYTX PT&/FAMILY 45 MINUTES 06/09/2013 35116 PSYTX PT&/FAMILY 45 MINUTES 08/22/2013 04756 PSYTX PT&/FAMILY 45 MINUTES 11/10/2013 01385 PSYTX PT&/FAMILY 45 MINUTES 03/06/2014 48847 PSYTX PT&/FAMILY 45 MINUTES 05/21/2014 Results Test [...] Staphylococcus aureus (MRSA) screening culture NEG NRG Capillary blood glucose measurement by glucometer (mass/volume) - 05/25/18 08: 35 Capillary blood glucose measurement by glucometer (mass/volume) 188 mg/dL 70-110 Capillary blood glucose measurement by glucometer (mass/volume) - 05/25/18 14: 05 Capillary blood glucose measurement by glucometer (mass/volume) 197 mg/dL 70-110 Capillary blood glucose measurement by glucometer (mass/volume) - 05/25/18 20: 34 Capillary blood glucose measurement by glucometer (mass/volume) 194 mg/dL 70-110 Capillary blood glucose measurement by glucometer (mass/volume) - 05/26/18 05: 19 Capillary blood glucose measurement by glucometer (mass/volume) 137 mg/dL 70-110 Capillary blood glucose measurement by glucometer (mass/volume) - 05/26/18 12: 01 Capillary blood glucose measurement by glucometer (mass/volume) 198 mg/dL 70-110 Capillary blood glucose measurement by glucometer (mass/volume) - 05/26/18 16: 46 Capillary blood glucose measurement by glucometer (mass/volume) 121 mg/dL 70-110 Capillary blood glucose measurement by glucometer (mass/volume) - 05/26/18 20: 38 Capillary blood glucose measurement by glucometer (mass/volume) 170 mg/dL 70-110 Capillary blood glucose measurement by glucometer (mass/volume) - 05/27/18 05: 53 Capillary blood glucose measurement by glucometer (mass/volume) 184 mg/dL 70-110 Capillary blood glucose measurement by glucometer (mass/volume) - 05/27/18 10: 52 Capillary blood glucose measurement by glucometer (mass/volume) 195 mg/dL 70-110 Capillary blood glucose measurement by glucometer (mass/volume) - 05/27/18 16: 52 Capillary blood glucose measurement by glucometer (mass/volume) 151 mg/dL 70-110 Capillary blood glucose measurement by glucometer (mass/volume) - 05/27/18 20: 13 Capillary blood glucose measurement by glucometer (mass/volume) 160 mg/dL 70-110 Capillary blood glucose measurement by glucometer (mass/volume) - 05/28/18 05: 44 Capillary blood glucose measurement by glucometer (mass/volume) 181 mg/dL 70-110 Capillary blood glucose measurement by glucometer (mass/volume) - 05/28/18 10: 48 Capillary blood glucose measurement by glucometer (mass/volume) 188 mg/dL 70-110 Capillary blood glucose measurement by glucometer (mass/volume) - 05/28/18 16: 34 Capillary blood glucose measurement by glucometer (mass/volume) 165 mg/dL 70-110 Capillary blood glucose measurement by glucometer (mass/volume) - 05/28/18 20: 09 Capillary blood glucose measurement by glucometer (mass/volume) 146 mg/dL 70-110 Capillary blood glucose measurement by glucometer (mass/volume) - 05/29/18 05: 17 Capillary blood glucose measurement by glucometer (mass/volume) 164 mg/dL 70-110 Capillary blood glucose measurement by glucometer (mass/volume) - 05/29/18 10: 27 Capillary blood glucose measurement by glucometer (mass/volume) 196 mg/dL 70-110 Encounters ACCT No. Visit Date/Time Discharge Status Pt. Type Provider Facility Loc./Unit Complaint [id number] 05/21/2014 11:01:00 05/21/2014 23:59:59 [facility] Outpatient ADEEL MICHELLE PHD [id number] 03/05/2014 14:10:00 03/05/2014 23:59:59 [facility] Out[facility] ADEEL MICHELLE PHD [id number] 11/09/2013 10:54:00 11/09/2013 23:59:59 [facility] Outpatient ADEEL MICHELLE PHD [id number] 08/21/2013 12:52:00 08/21/2013 23:59:59 [facility] Outpatient ADEEL MICHELLE PHD [id number] 06/08/2013 09:42:00 06/08/2013 23:59:59 [facility] Outpatient ADEEL MICHELLE PHD [id number] 05/25/2013 09:56:00 05/25/2013 23:59:59 [facility] Outpatient ADEEL MICHELLE PHD [id number] 04/03/2013 10:50:00 04/03/2013 23:59:59 CLS Outpatient MASHASTAR ROSE DO [id number] 10/27/2012 13:44:00 10/27/2012 23:59:59 CLS Outpatient RAFAELA RAIEN Virgilio [id number] 10/25/2012 09:31:00 10/25/2012 23:59:59 CLS Outpatient [id number] 10/14/2012 13:44:00 10/14/2012 23:59:59 CLS Outpatient [id number] 09/26/2012 13:49:00 09/26/2012 23:59:59 CLS Outpatient [id number] 09/02/2012 09:56:00 09/02/2012 23:59:59 CLS Outpatient [id number] 08/18/2012 15:01:00 08/18/2012 23:59:59 CLS Outpatient [id number] 07/08/2012 09:48:00 07/08/2012 23:59:59 CLS Outpatient [id number] 07/08/2012 09:48:00 07/08/2012 23:59:59 CLS Outpatient [id number] 03/23/2013 12:46:00 Document Registration [id number] 01/20/2013 07:52:00 Document Registration [id number] 12/20/2012 08:59:00 Document Registration [id number] 12/06/2012 08:49:00 Document Registration [id number] 11/22/2012 08:39:00 Document Registration [id number] 03/04/2015 22:27:59 ACT Document Registration [id number] 04/22/2017 14:30:00 04/22/2017 23:59:59 CLS Outpatient [facility] [id number] 05/28/2018 12:32:00 05/29/2018 14:10:00 DIS Inpatient SULLY MCLEAN MD [facility] 4TH VENTRAL HERNIA, LEFT LOWER QUAD HERNIA [id number] 05/23/2018 11:32:00 05/23/2018 13:40:00 DIS Outpatient SULLY MCLEAN MD [facility] PREOP VENTRAL HERNIA, LEFT LOWER QUAD HERNIA [id number] 04/26/2018 09:53:00 04/26/2018 23:59:59 CLS Outpatient SULLY MCLEAN MD [facility] RAD RECURRENT VENTRAL HERNIA [id number] 01/08/2017 06:39:00 01/08/2017 23:59:59 CLS Outpatient YOMI NY DO [facility] CARD R53.83,I10,R07.9 [id number] 01/06/2017 13:38:00 01/06/2017 23:59:59 CLS Outpatient YOMI NY DO [facility] CARD R53.83,I10,R07.9 [id number] 09/24/2016 09:45:00 09/24/2016 23:59:59 CLS Outpatient YOMI NY DO [facility] LAB RECURRENT FOLLICULITIS [id number] 10/29/2015 14:06:00 10/29/2015 14:42:00 DIS Outpatient VENICE ARAUZ DO [facility] SLEEP ANNITA [id number] 08/12/2015 06:00:00 08/12/2015 14:20:00 DIS Outpatient SULLY MCLEAN MD [facility] SDC DYSKNESIA [id number] 08/07/2015 09:58:00 08/07/2015 23:59:59 CLS Outpatient SULLY MCLEAN MD [facility] PREOP DYSKNESIA [id number] 06/04/2015 12:25:00 06/04/2015 23:59:59 CLS Outpatient YOMI NY DO [facility] CARD PALPITATIONS,ABD PAIN [id number] 02/26/2015 14:17:00 03/27/2015 15:49:00 DIS Outpatient MELISSA BISHOP [facility] REHAB S/P LUMBAR FUSION BILATERAL LE WEAKNESS [id number] 03/04/2015 22:27:00 03/05/2015 02:13:00 DIS Emergency KARI SIDDIQUI DO [facility] ER POSS HERNIA [id number] 11/19/2014 14:00:00 11/19/2014 23:59:59 CLS Outpatient YANELY JACKSON YOMI Yina [facility] HH URGENCY, POSSIBLE UTI [id number] 08/24/2014 13:23:00 08/24/2014 23:59:59 CLS Outpatient REGLA JACKSON VENICE Gomez [facility] RT ANNITA, [id number] 07/10/2014 07:35:00 07/10/2014 12:33:00 DIS Outpatient CHAD COREA MD [facility] SDC RIGHT URETERAL STONE AND LEFT RENAL STONE [id number] 07/06/2014 10:51:00 07/06/2014 23:59:59 CLS Outpatient CHAD COREA MD [facility] PREOP RT URETERAL STONE AND LT RENAL STONE [id number] 07/03/2014 14:17:00 07/03/2014 23:59:59 CLS Outpatient ELVIS PHILLIPS [facility] RAD R URETEROLITHASIS [id number] 07/02/2014 20:15:00 07/02/2014 23:45:00 DIS Emergency ELVIS PHILLIPS [facility] ER KIDNEY STONE [id number] 02/02/2014 10:20:00 02/02/2014 12:40:00 DIS Emergency EDUIN WALKER MD [facility] ER LOWER LEFT ADB PAIN [id number] 01/03/2014 13:45:00 01/03/2014 23:59:59 CLS Outpatient CHAD COREA MD [facility] RAD RENAL STONES [id number] 10/30/2013 10:40:00 12/27/2013 09:22:00 DIS Outpatient ELIZABETH SANCHEZ MD [facility] REHAB LUMBAR STENOSIS AND SPONDYLOLESTHESIS [id number] 12/11/2013 23:31:00 12/12/2013 02:00:00 DIS Emergency KARI SIDDIQUI DO [facility] ER CAN'T URINATE [id number] 12/07/2013 09:49:00 12/07/2013 12:39:00 DIS Emergency MARLEY FREEDMAN MD [facility] ER NECK PAIN/BODYACHES [id number] 12/06/2013 08:23:00 12/06/2013 15:35:00 DIS Outpatient CHAD COREA MD [facility] LEFT RENAL STONE [id number] 2013 21:41:00 2013 22:30:00 DIS Emergency EDUIN WALKER MD [facility] ER SORE THROAT, SWOLLEN TONGUE, DIFFICULTY SWALLOWING [id number] 12/01/2013 10:13:00 12/01/2013 23:59:59 CLS Outpatient CHAD COREA MD [facility] PREOP LEFT RENAL STONE [id number] 11/28/2013 09:08:00 11/28/2013 23:59:59 CLS Outpatient CHAD COREA MD [facility] RAD STONE [id number] 11/22/2013 12:19:00 11/22/2013 23:59:59 CLS Outpatient NESHA NY [facility] RAD HEMATURIA/FLANK PAIN/HX OF STONES [id number] 11/20/2013 11:27:00 11/20/2013 13:57:00 DIS Emergency KARI SIDDIQUI DO [facility] ER UNCOMFORTABLE THROAT PAIN BACK PAIN [id number] 11/20/2013 03:48:00 11/20/2013 05:04:00 DIS Emergency EDUIN WALKER MD [facility] ER DIFFICULTY SWALLOWING [id number] 11/17/2013 23:20:00 11/18/2013 01:43:00 DIS Emergency MELISSA MARTINEZ MD [facility] ER ANKLE SWELLING,KIDNEY STONE [id number] 11/03/2013 02:01:00 11/03/2013 02:47:00 DIS Emergency MICHAEL MCGINNIS MD [facility] ER FEELS LIKE SOMETHING CAUGHT IN THROAT [id number] 10/23/2013 06:43:00 10/23/2013 09:00:00 DIS Outpatient SULLY MCLEAN MD [facility] DIARRHEA [id number] 10/18/2013 07:41:00 10/18/2013 23:59:59 CLS Outpatient CARIDAD VALENTINO, SULLY Gomez [facility] PREOP DIARRHEA [id number] 10/11/2013 18:03:00 10/12/2013 18:00:00 DIS Inpatient YOMI NY DO [facility] CSD TACHYCARDIA,DYSPNEA [id number] 10/03/2013 09:17:00 10/03/2013 14:54:00 DIS Outpatient ELIZABETH SANCHEZ MD [facility] RAD LUMBAR STUN [id number] 08/31/2013 10:29:00 09/04/2013 13:15:00 DIS Inpatient YOMI NY DO [facility] 4TH FECAL IMPACTION [id number] 08/27/2013 12:30:00 08/27/2013 18:35:00 DIS Emergency BAR PA, ELVIS Bhakta [facility] ER CONSTIPATION [id number] 04/28/2013 20:02:00 04/29/2013 07:05:00 DIS Outpatient BETINA VALENTINO, OUMAR Argueta [facility] SLEEP ANNITA [id number] 12/14/2012 15:12:00 12/14/2012 23:59:59 CLS Outpatient RIDINGS, NESHA Brandyn LOVELL [facility] RAD HEMATURIA [id number] 11/12/2015 14:10:00 Document Registration [id number] 05/20/2015 00:27:00 Document Registration [id number] 01/15/2015 08:08:00 Document Registration [id number] 01/15/2015 08:08:00 Document Registration [id number] 10/07/2012 18:48:00 Document Registration [id number] 2011 06:24:00 Document Registration [id number] 09/24/2011 14:07:00 Document Registration [id number] 08/03/2011 15:15:00 Document Registration [id number] 07/21/2011 14:31:00 Document Registration [id number] 2010 14:32:00 Document Registration [id number] 11/10/2010 12:46:00 Document Registration [id number] 01/08/2010 11:21:00 Document Registration [id number] 12/16/2009 13:02:00 Document Registration [id number] 12/09/2009 14:52:00 Document Registration [id number] 05/12/2018 16:27:33 ACT Unknown
== END 2018-05-29 14:10 | disposition home or self-care (01) | DRG 354 ==
LOC: SDC 07:47 → 4TH 15:00 → SDC 15:01 → 4TH 05-27 14:04 → UNDOADMIN 05-28 12:32 → 4TH 05-28 12:32 → UNDODISIN 05-29 14:10
PROVIDERS: ADMIT Surgery; ATTEND Surgery
PROC: 0WUF4JZ Supplement Abdominal Wall with Synthetic Substitute, Percutaneous Endoscopic Approach (ICD-10-PCS; 2018-05-25)
PROC: 0WUF4JZ Supplement Abdominal Wall with Synthetic Substitute, Percutaneous Endoscopic Approach (ICD-10-PCS; principal; 2018-05-25 10:57)
DX: K43.2 Incisional hernia without obstruction or gangrene (principal); K43.9 Ventral hernia without obstruction or gangrene; K56.7 Ileus, unspecified; F31.9 Bipolar disorder, unspecified; E11.9 Type 2 diabetes mellitus without complications; G47.33 Obstructive sleep apnea (adult) (pediatric); M10.9 Gout, unspecified; Z79.84 Long term (current) use of oral hypoglycemic drugs
CPT/HCPCS: 82962; 94664

== ENCOUNTER 2018-09-05 19:14 | Observation (INO) | payer MEDICARE, MEDICAID ==
[~2018-09-05] VITALS: Ht 175.3 cm; Wt 127.6 kg
[~2018-09-05 19:14] MED LIST changes: -AMLO5TAB7 PO; +AMLO5TAB9 PO; +OXYC1TAB87 PO
[2018-09-05] MEDS ORDERED: NS IV 1000 ML 1,000 ML IV ONE (19:28)
[2018-09-05] MEDS ORDERED: ONDANSETRON 4 MG/2 ML (SDV) Z0FRAN IVP ONE (19:30)
[2018-09-05 19:39] LABS: BASOPHILS % (AUTO) 0 % (0-10); EOSINOPHILS # (AUTO) 0.1 10^3/uL (0.0-0.3); EOSINOPHILS % (AUTO) 2 % (0-10); HEMATOCRIT 47 % (40-54); HEMOGLOBIN 16.3 G/DL (13.3-17.7); LYMPHOCYTES % (AUTO) 11 % (12-44); MEAN CORPUSCULAR HEMOGLOBIN 29 PG (25-34); MEAN CORPUSCULAR HGB CONC 35 G/DL (32-36); MEAN CORPUSCULAR VOLUME 85 FL (80-99); MEAN PLATELET VOLUME 9.9 FL (7.4-10.4); MONOCYTES # (AUTO) 0.6 X 10^3 (0.0-1.0); MONOCYTES % (AUTO) 7 % (0-12); NEUTROPHILS # (AUTO) 7.4 X 10^3 (1.8-7.8); NEUTROPHILS % (AUTO) 81 % (42-75); PLATELET COUNT 277 10^3/uL (130-400); RED CELL DISTRIBUTION WIDTH 14.6 % (10.0-14.5); WHITE BLOOD COUNT 9.1 10^3/uL (4.3-11.0)
[2018-09-05 19:46] LABS: PROTHROMBIN TIME PATIENT 13.2 SEC (12.2-14.7)
--- NOTE | 2018-09-05 19:49 | Diagnostic Imaging Report ---
INDICATION: Hypertension. Tachycardia COMPARISON: 08/24/2014 FINDINGS: Single frontal view of the chest demonstrates normal heart size and pulmonary vascularity. The lungs are well aerated and clear. No large pleural effusion or pneumothorax is seen. The visualized osseous structures show no acute abnormalities. IMPRESSION: 1. No acute cardiopulmonary process. Dictated by: Dictated on workstation # [id number]
[2018-09-05 19:54] LABS: ALANINE AMINOTRANSFERASE 61 U/L (0-55); ALBUMIN 4.3 GM/DL (3.2-4.5); ALKALINE PHOSPHATASE 81 U/L (40-136); AMYLASE 51 U/L (25-125); BILIRUBIN,TOTAL 0.7 MG/DL (0.1-1.0); BUN/CREATININE RATIO 15; CALCIUM 9.3 MG/DL (8.5-10.1); CARBON DIOXIDE 17 MMOL/L (21-32); CHLORIDE 101 MMOL/L (98-107); CREATININE SERUM 1.14 MG/DL (0.60-1.30); GFR ESTIMATED > 60; GLUCOSE 216 MG/DL (70-105); LIPASE 28 U/L (8-78); MAGNESIUM 1.5 MG/DL (1.8-2.4); POTASSIUM 3.8 MMOL/L (3.6-5.0); SODIUM 135 MMOL/L (135-145); TOTAL PROTEIN 7.5 GM/DL (6.4-8.2)
--- NOTE | 2018-09-05 19:54 | ED General ---
General Chief Complaint: General Problems/Pain Stated Complaint: NOT FEELING WELL Nursing Triage Note: TO ED [facility]IA [facility] WITH C/O RECENT SINUS PRESSURE AND HEADACHE STARTING THIS AM. STARTED GETTING FLUSHED AND DIZZY FEELING THIS EVENING. NAUSEA, VOMITED X1 THIS AM. HAS NOT EATEN SINCE BREAKFAST. DENIES CHILLS, FEVER, PAIN. NO LOC WITH DIZZINESS. STARTED EFFEXOR MEDICATION TODAY, BUT HAS HX OF TAKING THIS MEDICATION IN THE PAST WITH NO PROBLEMS. Nursing Sepsis Screen: No Definite Risk Source of Information: Patient, EMS History of Present Illness Date Seen by Provider: Sep 05, 2018 Time Seen by Provider: 19:20 Initial Comments PT ARRIVES VIA EMS FROM HOME PT STATES HE HAS NOT FELT WELL SINCE THIS AM HAD HEADACHE THIS JUAQUIN HAS FELT FLUSHED/HOT TODAY HAS FELT SHAKEY TODAY HAS BEEN DIZZY AND WEAK ALL DAY HAS HAD NAUSEA AND VOMITED X 1. HAD LOOSE STOOL X 1 BUT IS NOT UNUSUAL FOR PT-- STATES HE HAS A SPASTIC COLON NO ABDOMINAL PAIN NO CHEST PAIN NO SHORTNESS OF BREATH NO SWELLING IN LEGS / FEET OR PAIN IN CALVES NO SWEATS NO PALPITATIONS NO PROBLEMS URINATING NO PARESTHESIAS OR MOTOR DEFICITS NO RECENT ILLNESS DID NOT CHECK TEMPERATURE TODAY NO COUGH OR CONGESTION BP WAS 157/102 AND PULSE WAS 103, SO CALLED EMS PT ATE BREAKFAST AT 0930, BUT NOTHING ELSE TO EAT TODAY DUE TO NAUSEA/JUST NOT FEELING WELL PT IS DIABETIC, EMS REPORTS ACCUCHECK 170 ENROUTE. PT STATES HE STARTED EFFEXOR TODAY, BUT WAS ALREADY HAVING THESE SYMPTOMS BEFORE HE TOOK THE MEDICATION, AND HAS BEEN ON EFFEXOR IN THE PAST AND DID NOT HAVE PROBLEMS STATES HE HAS "HAD ALOT OF TENSION" LATELY PCP: DR. [place] [facility] MANAGER: DR. ARAUZ--FOR SLEEP APNEA Allergies and Home Medications Allergies Coded Allergies: Sulfa (Sulfonamide Antibiotics) (Verified Allergy, Intermediate, ITCHING/ NAUSEA, 08/07/15) Iodinated Contrast- Oral and IV Dye (Verified Allergy, Mild, FACIAL ALVAREZ , 05/23/18) aspirin (Verified Allergy, Mild, GI UPSET, 05/23/18) clomipramine (Verified Allergy, Mild, 12/01/13) Home Medications Allopurinol 300 Mg Tablet, 300 MG PO DAILY, (Reported) Amlodipine Besylate 5 Mg Tablet, 5 MG PO DAILY, (Reported) Cephalexin 500 Mg Tablet, 500 MG PO DAILY, (Reported) Cetirizine HCl 10 Mg Tablet, 10 MG PO DAILY, (Reported) Clindamycin Phos/Benzoyl Perox 50 Gm Gel.w.pump, 50 GM TP DAILY, (Reported) Ergocalciferol (Vitamin D2) 50,000 Unit Capsule, 50,000 UNIT PO WEEK, (Reported) Fluticasone Propionate 9.9 Ml [place].susp, 2 SPRAY NS DAILY, (Reported) 2 SPRAYS PER NOSTRIL DAILY X 2 DAYS THEN 1 SPRAY DAILY Hydrochlorothiazide 25 Mg Tablet, 25 MG PO DAILY, (Reported) Lactulose 10 Gm/15 Ml Solution, 10 GM PO PRN PRN for CONSTIPATION-1ST LINE, ( Reported) Lamotrigine 200 Mg Tab, 200 MG PO BID, (Reported) Metformin HCl 500 Mg Tablet, 1,000 MG PO BID, (Reported) Metronidazole/Skin Cleansr #23 1 Each Kit.cl.gel, 1 EACH TP DAILY, (Reported) Oxycodone HCl/Acetaminophen 1 Each Tablet, 1 TAB PO Q4H PRN for PAIN-MODERATE Prescribed by: SULLY MCLEAN on 05/26/18 1306 Potassium Citrate 10 Meq Tablet.er, 20 MEQ PO BID, (Reported) Patient Home Medication List Home Medication List Reviewed: Yes Review of Systems Review of Systems Constitutional: see HPI, dizziness, malaise, weakness EENTM: no symptoms reported; No nose congestion Respiratory: no symptoms reported; No short of breath, No wheezing Cardiovascular: no symptoms reported; No chest pain, No edema, No palpitations , No syncope Gastrointestinal: see HPI; No abdominal pain; diarrhea, loss of appetite, nausea, vomiting Genitourinary: no symptoms reported Musculoskeletal: no symptoms reported Skin: no symptoms reported Psychiatric/Neurological: See HPI, Headache; Denies Numbness, Denies Paresthesia, Denies Seizure, Denies Tingling, Denies Tremors, Denies Weakness Hematologic/Lymphatic: No Symptoms Reported Immunological/Allergic: no symptoms reported Past Ncxzzqy-Rbwbbm-Wrjrfg Hx Patient Social History Alcohol Use: Denies Use Recreational Drug Use: No Smoking Status: Never a Smoker Recent Foreign Travel: No Contact w/Someone Who Travel: No Recent Infectious Disease Expo: No Recent Hopitalizations: No Immunizations Up To Date Date of Pneumonia Vaccine: Oct 09, 2013 Date of Influenza Vaccine: May 24, 2018 Seasonal Allergies Seasonal Allergies: Yes Past Medical History Surgeries: Yes (KIDNEY STONE BASKET RETRIEVAL; ESWL; CYST ON BACK; LUMBAR SPINE SURGERY WITH TITANIUM HARDWARE; LEFT HUMERUS FX / ORIF; UMBILICAL HERNIA REPAIR; HERNIA REPAIR X 2 ( VENTRAL AND LLQ HERNIAS ) IN MAY 2018) Abdominal, Gallbladder, Orthopedic Respiratory: Yes Sleep Apnea Currently Using CPAP: Yes Cardiac: Yes (LAST STRESS TEST WAS 01/[address] LOCKE. 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) Adverse Reaction/Blood Tranf: No (NO REACTION) Family Medical History Cancer GRANDMOTHER (BREAST CA PATERNAL) Cataract GRANDMOTHER (PATERNAL) Congestive heart failure 03 FATHER GRANDMOTHER (PATERNAL) Family history: Allergy 03 MOTHER Family history: Arthritis 03 MOTHER Family history: Asthma 09 BROTHER Family history: Cardiovascular disease 03 FATHER ( OF HEARD DISEASE) Family history: Diabetes mellitus GRANDMOTHER (PATERNAL) GRANDFATHER AUNT (PATERNAL) Family history: Glaucoma AUNT (PATERNAL) Family history: Hypertension 03 FATHER Family history: Thyroid disorder 03 MOTHER Heart disease 03 FATHER GRANDMOTHER (PATERNAL) History of - anemia 03 MOTHER Hypercholesterolemia 03 FATHER Myocardial infarction 03 FATHER Stroke GRANDMOTHER (PATERNAL) Physical Exam Vital Signs Vital Signs - First Documented 09/05/18 19:16 Temp 98.1 Pulse 110 Resp 19 B/P (MAP) 163/96 (118) O2 Delivery Room Air Capillary Refill : Less Than 3 Seconds Height, Weight, BMI Height: 5'9.00" Weight: 289lbs. 1.0oz. 131.722594tg; 43.4 BMI Method:Stated General Appearance: No Apparent Distress, WD/WN, Other (DOES NOT APPEAR ILL OR TO BE IN ANY DISCOMFORT) HEENT: PERRL/EOMI Neck: Full Range of Motion, Normal Inspection, Non Tender, Supple Respiratory: Normal Breath Sounds, No Accessory Muscle Use, No Respiratory Distress Cardiovascular: Regular Rate, Rhythm, No Edema, No JVD, No Murmur, Normal Peripheral Pulses Gastrointestinal: Normal Bowel Sounds, No Organomegaly, No Pulsatile Mass, Non Tender, Soft Back: No CVA Tenderness Extremity: Normal Capillary Refill, Normal Inspection, Normal Range of Motion, Non Tender, No Calf Tenderness, No Pedal Edema Neurologic/Psychiatric: Alert, Oriented x3, No Motor/Sensory Deficits, Normal 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, 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 Norm as Tested Skin: Normal Color, Warm/Dry; No Rash Focused Exam Lactate Level 09/05/18 19:24: Lactic Acid Level 3.49*H 09/05/18 21:24: Lactic Acid Level 1.93 Lactic Acid Level Progress/Results/Core Measures Suspected Sepsis Recent Fever Within 48 Hours: No Infection Criteria Present: Suspected New Infection New/Unexplained Altered Menta: No Sepsis Screen: No Definite Risk SIRS Temperature:98.1 Pulse: 110 Respiratory Rate: 19 Laboratory Tests 09/05/18 19:24: White Blood Count 9.1 09/06/18 05:40: White Blood Count 7.3 Blood Pressure 163 /96 Mean: 118 09/05/18 19:24: Lactic Acid Level 3.49*H 09/05/18 21:24: Lactic Acid Level 1.93 Laboratory Tests 09/05/18 19:24: Creatinine 1.14, INR Comment 1.0, Platelet Count 277, Total Bilirubin 0.7 09/06/18 05:40: Creatinine 1.10, Platelet Count 270, Total Bilirubin 0.5 Results/Orders Lab Results Laboratory Tests Test 09/05/18 19:24 09/05/18 20:18 09/05/18 21:24 09/05/18 22:08 Range/Units White Blood Count 9.1 4.3-11.0 10^3/uL Red Blood Count 5.58 4.35-5.85 10^6/uL Hemoglobin 16.3 13.3-17.7 G/DL Hematocrit 47 40-54 % Mean Corpuscular Volume 85 80-99 FL Mean Corpuscular Hemoglobin 29 25-34 PG Mean Corpuscular Hemoglobin Concent 35 32-36 G/DL Red Cell Distribution Width 14.6 H 10.0-14.5 % Platelet Count 277 130-400 10^3/uL Mean Platelet Volume 9.9 7.4-10.4 FL Neutrophils (%) (Auto) 81 H 42-75 % Lymphocytes (%) (Auto) 11 L 12-44 % Monocytes (%) (Auto) 7 0-12 % Eosinophils (%) (Auto) 2 0-10 % Basophils (%) (Auto) 0 0-10 % Neutrophils # (Auto) 7.4 1.8-7.8 X 10^3 Lymphocytes # (Auto) 1.0 1.0-4.0 X 10^3 Monocytes # (Auto) 0.6 0.0-1.0 X 10^3 Eosinophils # (Auto) 0.1 0.0-0.3 10^3/uL Basophils # (Auto) 0.0 0.0-0.1 10^3/uL Prothrombin Time 13.2 12.2-14.7 SEC INR Comment 1.0 0.8-1.4 Activated Partial Thromboplast Time 28 24-35 SEC Sodium Level 135 135-145 MMOL/L Potassium Level 3.8 3.6-5.0 MMOL/L Chloride Level 101 98-107 MMOL/L Carbon Dioxide Level 17 L 21-32 MMOL/L Anion Gap 17 H 5-14 MMOL/L Blood Urea Nitrogen 17 7-18 MG/DL Creatinine 1.14 0.60-1.30 MG/DL Estimat Glomerular Filtration Rate > 60 BUN/Creatinine Ratio 15 Glucose Level 216 H 70-105 MG/DL Lactic Acid Level 3.49 *H 1.93 0.50-2.00 MMOL/L Calcium Level 9.3 8.5-10.1 MG/DL Corrected Calcium 9.1 8.5-10.1 MG/DL Magnesium Level 1.5 L 1.8-2.4 MG/DL Total Bilirubin 0.7 0.1-1.0 MG/DL Aspartate Amino Transf (AST/SGOT) 49 H 5-34 U/L Alanine Aminotransferase (ALT/SGPT) 61 H 0-55 U/L Alkaline Phosphatase 81 40-136 U/L Total Creatine Kinase 131 30-200 U/L Creatine Kinase MB 3.7 <6.6 NG/ML Myoglobin 86.2 10.0-92.0 NG/ML Troponin I < 0.028 <0.028 NG/ML B-Type Natriuretic Peptide 14.0 <100.0 PG/ML Total Protein 7.5 6.4-8.2 GM/DL Albumin 4.3 3.2-4.5 GM/DL Amylase Level 51 25-125 U/L Lipase 28 8-78 U/L Blood Gas Puncture Site RIGHT RADIAL Blood Gas Patient Temperature 98.1 Arterial Blood pH 7.40 7.37-7.43 Arterial Blood Partial Pressure CO2 38 35-45 MMHG Arterial Blood Partial Pressure O2 72 L 79-93 MMHG Arterial Blood HCO3 23 23-27 MMOL/L Arterial Blood Total CO2 23.8 21.0-31.0 MMOL/L Arterial Blood Oxygen Saturation 95 94-100 % Arterial Blood Base Excess -1.6 -2.5-2.5 MMOL/L Raul Test POSITIVE Blood Gas Ventilator Setting NO Blood Gas Inspired Oxygen N Urine Color YELLOW Urine Clarity CLEAR Urine pH 5 5-9 Urine Specific [place] 1.010 L 1.016-1.022 Urine Protein 2+ H NEGATIVE Urine Glucose (UA) NEGATIVE NEGATIVE Urine Ketones 1+ H NEGATIVE Urine Nitrite NEGATIVE NEGATIVE Urine Bilirubin NEGATIVE NEGATIVE Urine Urobilinogen NORMAL NORMAL MG/DL Urine Leukocyte Esterase NEGATIVE NEGATIVE Urine RBC (Auto) NEGATIVE NEGATIVE Urine RBC NONE /HPF Urine WBC NONE /HPF Urine Squamous Epithelial Cells 0-2 /HPF Urine Crystals NONE /LPF Urine Bacteria NEGATIVE /HPF Urine Casts NONE /LPF Urine Mucus MODERATE H /LPF Urine Culture Indicated NO Test 09/06/18 01:30 09/06/18 05:40 Range/Units Troponin I < 0.028 <0.028 NG/ML White Blood Count 7.3 4.3-11.0 10^3/uL Red Blood Count 5.50 4.35-5.85 10^6/uL Hemoglobin 15.7 13.3-17.7 G/DL Hematocrit 47 40-54 % Mean Corpuscular Volume 86 80-99 FL Mean Corpuscular Hemoglobin 29 25-34 PG Mean Corpuscular Hemoglobin Concent 33 32-36 G/DL Red Cell Distribution Width 14.3 10.0-14.5 % Platelet Count 270 130-400 10^3/uL Mean Platelet Volume 10.0 7.4-10.4 FL Neutrophils (%) (Auto) 93 H 42-75 % Lymphocytes (%) (Auto) 6 L 12-44 % Monocytes (%) (Auto) 1 0-12 % Eosinophils (%) (Auto) 0 0-10 % Basophils (%) (Auto) 0 0-10 % Neutrophils # (Auto) 6.8 1.8-7.8 X 10^3 Lymphocytes # (Auto) 0.5 L 1.0-4.0 X 10^3 Monocytes # (Auto) 0.1 0.0-1.0 X 10^3 Eosinophils # (Auto) 0.0 0.0-0.3 10^3/uL Basophils # (Auto) 0.0 0.0-0.1 10^3/uL Neutrophils % (Manual) 92 % Lymphocytes % (Manual) 0 % Monocytes % (Manual) 0 % Eosinophils % (Manual) 0 % Basophils % (Manual) 0 % Band Neutrophils 1 % Reactive Lymphocytes 7 % Blood Morphology Comment NORMAL Sodium Level 133 L 135-145 MMOL/L Potassium Level 4.7 3.6-5.0 MMOL/L Chloride Level 101 98-107 MMOL/L Carbon Dioxide Level 19 L 21-32 MMOL/L Anion Gap 13 5-14 MMOL/L Blood Urea Nitrogen 17 7-18 MG/DL Creatinine 1.10 0.60-1.30 MG/DL Estimat Glomerular Filtration Rate > 60 BUN/Creatinine Ratio 15 Glucose Level 269 H 70-105 MG/DL Calcium Level 9.1 8.5-10.1 MG/DL Corrected Calcium 8.9 8.5-10.1 MG/DL Magnesium Level 2.3 1.8-2.4 MG/DL Total Bilirubin 0.5 0.1-1.0 MG/DL Aspartate Amino Transf (AST/SGOT) 35 H 5-34 U/L Alanine Aminotransferase (ALT/SGPT) 50 0-55 U/L Alkaline Phosphatase 90 40-136 U/L Total Protein 7.5 6.4-8.2 GM/DL Albumin 4.2 3.2-4.5 GM/DL Micro Results Microbiology 09/05/18 Influenza Types A,B Antigen (MARSHA) - Final, Complete My Orders Orders - KARI SIDDIQUI DO Saline Lock/Iv-Start (09/05/18 19:28) Ekg Tracing (09/05/18 19:28) Monitor-Rhythm Ecg Trace Only (09/05/18 19:28) Amylase (09/05/18 19:28) Cbc With Automated Diff (09/05/18 19:28) Comprehensive Metabolic Panel (09/05/18 19:28) Lactic Acid Analyzer (09/05/18 19:28) Lipase (09/05/18 19:28) Magnesium (09/05/18 19:28) Protime With Inr (09/05/18 19:28) Partial Thromboplastin Time (09/05/18 19:28) Troponin I (09/05/18 19:28) Ua Culture If Indicated (09/05/18 19:28) Blood Culture (09/05/18 19:28) Influenza A And B Antigens (09/05/18 19:28) Chest 1 View, Ap/Pa Only (09/05/18 19:28) Saline Lock/Iv-Start (09/05/18 19:28) Ns Iv 1000 Ml (Sodium Chloride 0.9%) (09/05/18 19:28) Ondansetron Injection (Zofran Injectio (09/05/18 19:30) BNP (09/05/18 19:47) Creatine Kinase (09/05/18 19:47) Creatine Kinase Mb (09/05/18 19:47) Myoglobin Serum (09/05/18 19:47) Arterial Blood Gas (09/05/18 20:02) Magnesium 1 Gm/100 Ml Ivpb (Magnesium [place] (09/05/18 20:15) Methylprednisolone Sod Succ (Solu-Medrol (09/05/18 21:15) Diphenhydramine Injection (Benadryl Inje (09/05/18 21:15) Ct Angio Chest W (09/05/18 21:09) Famotidine Injection (Pepcid Injection) (09/05/18 21:15) Iohexol Injection (Omnipaque 350 Mg/Ml 1 (09/05/18 21:30) Contrast Received (Contrast Received) (09/05/18 21:30) Ns (Ivpb) (Sodium Chloride 0.9% Ivpb Bag (09/05/18 21:30) Medications Given in ED Current Medications Medications Dose Ordered Sig/Eliana Route Start Time Stop Time Status Last Admin Dose Admin Diphenhydramine HCl 50 mg ONCE ONCE IVP 09/05/18 21:15 09/05/18 21:16 DC 09/05/18 21:27 50 MG Famotidine 40 mg ONCE ONCE IVP 09/05/18 21:15 09/05/18 21:16 DC 09/05/18 21:27 40 MG Iohexol 150 ml ONCE ONCE IV 09/05/18 21:30 09/05/18 21:31 DC 09/05/18 21:35 150 ML Methylprednisolone Sodium Succinate 125 mg ONCE ONCE IVP 09/05/18 21:15 09/05/18 21:16 DC 09/05/18 21:27 125 MG Sodium Chloride 100 ml ONCE ONCE IV 09/05/18 21:30 09/05/18 21:31 DC 09/05/18 21:35 85 ML Vital Signs/I&O 09/05/18 09/05/18 09/05/18 09/06/18 23:15 23:15 23:15 00:29 Temp 97.8 98.1 Pulse 111 110 103 Resp 20 19 B/P (MAP) 188/82 158/97 (117) Pulse Ox 98 100 97 O2 Delivery Room Air Room Air 09/06/18 09/06/18 09/06/18 09/06/18 00:30 01:00 01:30 03:15 Temp 97.8 97.6 Pulse 111 100 103 100 Resp 20 18 B/P (MAP) 188/82 (117) 163/83 (109) Pulse Ox 98 98 O2 Delivery Room Air Room Air 09/06/18 09/06/18 03:30 05:30 Temp 98.5 97.5 Pulse 99 99 Resp 18 18 B/P (MAP) 135/75 (95) 165/85 (111) Pulse Ox 96 95 O2 Delivery Room Air Room Air 09/06/18 00:00 Intake Total 1100 ml Balance 1100 ml Capillary Refill : Less Than 3 Seconds Blood Pressure Mean: 118 Progress Note : Progress Note UNEVENTFUL ER STAY ECG Initial ECG Impression Date: Sep 05, 2018 Initial ECG Impression Time: 19:28 Initial ECG Rate: 110 Initial ECG Rhythm: S.Tach (RBBB, 1ST DEGREE AV BLOCK) Initial ECG Impression: 1st Degree AV Block Initial ECG Comparisson: Changed (NEW RBBB FROM 05/2018) Diagnostic Imaging Comments CXR--NO ACUTE PROCESS, PER RADIOLOGIST REPORT CT CHEST ANGIOGRAM--NO ACUTE PROCESS, PER RADIOLOGIST REPORT @ 2218 Departure Communication (Admissions) 2100--SPOKE WITH DR. DUMONT, PILL MAKER [employer]TER GUIDE. HE ADVISES CT CHEST ANGIOGRAM. HE ADVISES THAT DR. LOCKE CAN BE CONSULTED IN AM AND ADMIT TO HOSPITALIST. 6968--SPOKE WITH DR. FREEDMAN, HOSPITALIST, ACCEPTS PT FOR ADMIT. Impression Primary Impression: New onset right bundle branch block (RBBB) Additional Impressions: Generalized weakness IDDM (insulin dependent diabetes mellitus) Lactic acidosis Disposition: ADMITTED INPATIENT Condition: Stable Admissions Decision to Admit Reason: Admit from ER (General) Decision to Admit/Date: Sep 05, 2018 Time/Decision to Admit Time: 22:20 Departure-Patient Inst. Referrals: YOMI [place] DO (PCP/Family) Primary Care Physician KARI SIDDIQUI DO Sep 05, 2018 19:54
[2018-09-05 20:12] LABS: CREATINE KINASE MB 3.7 NG/ML (<6.6); MYOGLOBIN SERUM 86.2 NG/ML (10.0-92.0)
[2018-09-05 20:24] LABS: ABG BASE EXCESS -1.6 MMOL/L (-2.5-2.5); ABG OXYGEN SATURATION 95 % (94-100); ABG PCO2 38 MMHG (35-45); ABG PO2 72 MMHG (79-93); ABG TCO2 23.8 MMOL/L (21.0-31.0)
[2018-09-05 20:25] LABS: ALLENS TEST POSITIVE; INSPIRED O2 N; PATIENT TEMP 98.1; VENTILATOR NO
[2018-09-05] MEDS: MAGNESIUM 1 GM/100 ML IVPB 100 ML IV SCH ×2 (20:52→21:56)
[2018-09-05] MEDS ORDERED: FAMOTIDINE 20MG/2ML IV (PEPCID) IVP ONE (21:15)
[2018-09-05] MEDS ORDERED: diphenhydrAMINE 50 MG/ML INJ (BENADRYL) IVP ONE (21:15)
[2018-09-05] MEDS ORDERED: methylPREDNISolone 125 MG (Solu-MEDROL) VIAL IVP ONE (21:15)
[2018-09-05] MEDS ORDERED: RECEIVED CONTRAST (Hold Metformin) IV SCH (21:30)
[2018-09-05] MEDS ORDERED: NS 100 ML (IVPB) BAG IV ONE (21:30)
[2018-09-05] MEDS ORDERED: IOHEXOL 350 MG/ML 150 ML (OMNIPAQUE 350) VIAL IV ONE (21:30)
--- NOTE | 2018-09-05 21:50 | Diagnostic Imaging Report ---
PROCEDURE: CT angiography of the chest with contrast. TECHNIQUE: Multiple contiguous axial images were obtained through the chest after uneventful bolus administration of intravenous contrast. 2D reconstructed CTA MIP acquisitions were also performed. INDICATION: Weakness and hypertension. FINDINGS: There are no pulmonary emboli. Aorta is normal. Lungs are clear. There is no effusion or pneumothorax. IMPRESSION: Negative CTA chest. Dictated by: Dictated on workstation # [id number]
[2018-09-05 22:19] LABS: BILIRUBIN,URINE NEGATIVE (NEGATIVE); CLARITY,URINE CLEAR; COLOR,URINE YELLOW; GLUCOSE, URINE (UA) NEGATIVE (NEGATIVE); KETONES,URINE 1+ (NEGATIVE); LEUKOCYTE ESTERASE ,URINE NEGATIVE (NEGATIVE); NITRITE,URINE NEGATIVE (NEGATIVE); PH,URINE 5 (5-9); PROTEIN,URINE 2+ (NEGATIVE); UROBILINOGEN,URINE NORMAL (NORMAL)
[2018-09-05 22:27] LABS: BACTERIA,URINE NEGATIVE /HPF; SQUAMOUS EPITHELIAL CELL,UR 0-2 /HPF
--- OUTSIDE RECORDS SUMMARY | 2018-09-05 22:42 | XMS REPORT | Clinical Summary ---
Author Author [facility] Organization [facility] Address Unknown Phone Unavailable Care Team Providers Care Event Specialist Name Role Phone Gregory Mcfadden MD Unavailable Source Comments Some departments are not documenting in the electronic medical record. If you do not see the information that you expected, contact Release of Information in the Health Information Management department at [phone] for further assistance in locating additional records.[facility] Allergies Comments Active Allergy Reactions Severity Noted Date Psych med aphrinel not sure but caused very agitated and mean Unclassified Drug SEE COMMENTS 06/13/2012 Medications End Date Status Medication Sig Dispensed Refills Start Date Active fentaNYL (DURAGESIC) 100 Apply 1 Patch 0 mcg/hr patch to top of skin as directed every 72 hours Active venlafaxine (EFFEXOR) 75 Take 325 mg 0 mg tablet by mouth daily. Active lithium carbonate 300 mg Take 300 mg 0 capsule by mouth daily. Active lamoTRIgine (LAMICTAL) Take 100 mg 0 100 mg tablet by mouth twice daily. Active allopurinol (ZYLOPRIM) Take 300 mg 0 300 mg tablet by mouth daily. Active fenofibrate Take 145 mg 0 nanocrystallized (TRICOR) by mouth at 145 mg tablet bedtime daily. Active minocycline (MINOCIN) 100 Take 100 mg 0 mg capsule by mouth daily. Active potassium chloride(+) Take 20 mEq 0 (MICRO-K) 10 mEq capsule by mouth twice daily. Active metFORMIN (GLUCOPHAGE) Take 1,000 mg 0 500 mg tablet by mouth twice daily. Active gemfibrozil (LOPID) 600 Take 600 mg 0 mg tablet by mouth twice daily. Active fluticasone (FLONASE) 50 Apply 2 0 mcg/actuation nasal spray Sprays to each nostril as directed as Needed. Active amLODIPine (NORVASC) 5 mg Take 5 mg by 0 tablet mouth daily. Active Problems Problem Noted Date Insomnia 06/13/2012 Fatigue 06/13/2012 Bipolar 1 disorder 06/13/2012 Chronic back pain 06/13/2012 Family History Medical History Relation Name Comments Heart Attack Father Heart Failure Father High Cholesterol Father Hypertension Father Diabetes Paternal Grandmother Heart Attack Paternal Grandmother High Cholesterol Paternal Grandmother Hypertension Paternal Grandmother Relation Name Status Comments Brother Alive Brother Alive Father Maternal Grandfather Maternal Grandmother Mother Alive Paternal Grandfather Paternal Grandmother Social History Date Tobacco Use Types Packs/Day Years Used Never Smoker Alcohol Use Drinks/Week oz/Week Comments No Sex Assigned at Date Recorded Not on file Industry Job Start Date Occupation Not on file Not on file Not on file Travel End Travel History Travel Start No recent travel history available. Last Filed Vital Signs Time Taken Vital Sign Reading 06/13/2012 11:32 AM ACID TESTER Blood Pressure 144/93 06/13/2012 11:32 AM ACID TESTER Pulse 87 - Temperature - - Respiratory Rate - - Oxygen Saturation - - Inhaled Oxygen - Concentration 06/13/2012 11:32 AM ACID TESTER Weight 132.7 kg (292 lb 9.6 oz) 06/13/2012 11:32 AM ACID TESTER Height 175.3 cm (5' 9") 06/13/2012 11:32 AM ACID TESTER Body Mass Index 43.21 Plan of Treatment Health Maintenance Due Date Last Done Comments HEPATITIS C SCREENING 1959 PHYSICAL (COMPREHENSIVE) 12/03/1966 EXAM HIV SCREENING 12/03/1974 DTAP/TDAP VACCINES (1 - 12/03/1977 Tdap) COLORECTAL CANCER 12/03/2009 SCREENING SHINGLES RECOMBINANT 12/03/2009 VACCINE (1 of 2) INFLUENZA VACCINE 03/09/2018 Results Not on filefrom Last 3 Months
--- OUTSIDE RECORDS SUMMARY | 2018-09-05 22:46 | XMS REPORT | Continuity of Care Document ---
Author Author On License Of [facility] [place] [facility] Address Unknown Phone Unavailable Allergies Active Description Code Type Severity Reaction Onset Reported/Identified Relationship to Patient Clinical Status Yes enalapril-hydrochlorothiazide Drug Allergy 03/24/2011 Yes Anafranil Drug Allergy 05/25/2011 Yes Anafranil Drug Allergy N/A N/A 05/25/2011 Yes clomipramine [id number] Drug Allergy Mild N/A 12/01/2013 Yes aspirin [id number] Drug Allergy Unknown N/A 12/01/2013 Yes Sulfa (Sulfonamide Antibiotics) [id number] Drug Allergy Moderate ITCHING/NAUSEA 08/07/2015 Yes aspirin [id number] Drug Allergy Mild GI UPSET 05/23/2018 Yes Iodinated Contrast- Oral and IV Dye [id number] Drug Allergy Mild FACIAL ALVAREZ 05/23/2018 Medications [...] Ot 592.0 CALCULUS OF KIDNEY 10/12/2013 YOMI YN DO Ot 706.1 ACNE NEC 10/12/2013 YOMI [...] MD Ot 462 ACUTE PHARYNGITIS 2013 EDUIN WAKLER MD Ot 465.9 ACUTE URI NOS 12/06/2013 [...] CHAD COREA MD Ot 592.0 08/28/2014 CHAD CROEA MD Ot 592.1 08/28/2014 NAHOMY VALENTINO, CHAD [...] 01/15/2015 Ot 786.50 01/15/2015 NESHA OWEN C DIRECTOR OUTPATIENT SERVICES Ot 574.20 01/15/2015 RIDNESHA DU C DIRECTOR OUTPATIENT SERVICES Ot 599.70 01/15/2015 CARIDAD VALENTINO, SULLY Gomez Ot V72.84 01/15/2015 ELVIS PHILLIPS Ot 592.1 01/15/2015 NESHA [place] [employer] Ot 592.0 01/15/2015 NAHOMY VALENTINO, CHAD A Ot 592.9 01/15/2015 NAHOMY VALENTINO, CAHD A Ot 592.0 01/15/2015 NAHOMY VALENTINO, CHAD [...] 08/07/2015 Ot 786.50 08/07/2015 RIDINGS, NESHA C DIRECTOR OUTPATIENT SERVICES Ot 574.20 08/07/2015 RIDNESHA DU DIRECTOR OUTPATIENT SERVICES Ot 599.70 08/07/2015 CARIDAD VALENTINO, SULLY Gomez Ot V72.84 08/07/2015 ELVIS PHILLIPS Ot 592.1 08/07/2015 NESHA [place] [employer] Ot 592.0 08/07/2015 NAHOMY VALENTINO, CHAD A [...] CHEST PAIN NOS 09/24/2016 RIDINGS, NESHA C DIRECTOR OUTPATIENT SERVICES Ot 574.20 CHOLELITHIASIS NOS 09/24/2016 RIDINGS, NESHA C DIRECTOR OUTPATIENT SERVICES Ot 599.70 HEMATURIA, UNSPECIFIED 09/24/2016 CARIDAD VALENTINO, SULLY Gomez Ot V72.84 EXAM PRE-OPERATIVE NOS 09/24/2016 ELVIS PHILLIPS Ot 592.1 CALCULUS OF URETER 09/24/2016 NESHA [place] L [employer] Ot 592.0 CALCULUS OF KIDNEY 09/24/2016 NAHOMY VALENTINO, CHAD Guzman Ot 592.9 URINARY CALCULUS NOS 09/24/2016 NAHOMY VALENTINO, CHAD Guzman Ot 592.0 CALCULUS OF KIDNEY 09/24/2016 NAHOMY VALENTINO, CHAD Guzman Ot V72.63 PRE-PROCEDURAL LABORATORY EXAMINATION 09/24/2016 NAHOMY VALENTINO, CHAD Guzmna Ot V72.84 EXAM PRE-OPERATIVE NOS 09/24/2016 NAHOMY VALENTINO, CHAD Guzman Ot V74.8 SCREEN-BACTERIAL DIS NEC 09/24/2016 CHAD COREA MD Ot 592.0 CALCULUS OF KIDNEY 09/24/2016 CHAD COREA MD Ot 592.0 CALCULUS OF KIDNEY 09/24/2016 CHAD COREA MD Ot 592.1 CALCULUS OF URETER 09/24/2016 CHAD COREA MD Ot V72.63 PRE-PROCEDURAL LABORATORY EXAMINATION 09/24/2016 VENICE AARUZ DO Ot 278.00 OBESITY, NOS 09/24/2016 VENICE [...] Ot R53.83 OTHER FATIGUE 04/22/2018 NESHA OWEN DIRECTOR OUTPATIENT SERVICES Ot 574.20 CHOLELITHIASIS NOS 04/22/2018 NESHA OWEN C DIRECTOR OUTPATIENT SERVICES Ot 599.70 HEMATURIA, UNSPECIFIED 04/22/2018 CARIDAD VALENTINO, SULLY Gomez Ot V72.84 EXAM PRE-OPERATIVE NOS 04/22/2018 ELVIS PHILLIPS Ot 592.1 CALCULUS OF URETER 04/22/2018 NESHA [place] [employer] Ot 592.0 CALCULUS OF KIDNEY 04/22/2018 NAHOMY [...] DO Ot R53.83 OTHER FATIGUE 04/26/2018 RIDINGSNESHA DIRECTOR OUTPATIENT SERVICES Ot 574.20 CHOLELITHIASIS NOS 04/26/2018 RIDINGS, NESHA C DIRECTOR OUTPATIENT SERVICES Ot 599.70 HEMATURIA, UNSPECIFIED 04/26/2018 CARIDAD VALENTINO, SULLY Gomez Ot V72.84 EXAM PRE-OPERATIVE NOS 04/26/2018 ELVIS PHILLIPS Ot 592.1 CALCULUS OF URETER 04/26/2018 NESHA [place] [employer] Ot 592.0 CALCULUS OF KIDNEY 04/26/2018 CHAD [...] WITHOUT OBSTRUCTION OR 04/27/2018 SULLY MCLEAN MD M Ot Z98.890 OTHER SPECIFIED POSTPROCEDURAL STATES 05/18/2018 SULLY MCLEAN MD Ot K43.2 INCISIONAL HERNIA WITHOUT OBSTRUCTION OR 05/18/2018 SULLY MCLEAN MD Ot Z98.890 OTHER SPECIFIED POSTPROCEDURAL STATES 05/23/2018 SULLY MCLEAN MD Ot K43.9 VENTRAL HERNIA WITHOUT OBSTRUCTION OR GA 05/23/2018 SULLY MCLEAN MD M Ot Z01.812 ENCOUNTER FOR PREPROCEDURAL LABORATORY E 05/23/2018 SULLY MCLEAN MD Ot Z11.2 ENCOUNTER FOR SCREENING FOR OTHER BACTER 05/26/2018 SULLY MCLENA MD Ot K43.9 VENTRAL HERNIA WITHOUT OBSTRUCTION OR GA 05/26/2018 SULLY MCLEAN MD Ot Z01.812 ENCOUNTER FOR PREPROCEDURAL LABORATORY E 05/26/2018 SULLY MCLEAN MD M Ot Z11.2 ENCOUNTER FOR SCREENING FOR OTHER BACTER 05/26/2018 SULLY MCLEAN MD Ot K43.9 VENTRAL HERNIA WITHOUT OBSTRUCTION OR GA 05/26/2018 SULLY MCLEAN MD M Ot Z01.812 ENCOUNTER FOR PREPROCEDURAL LABORATORY E 05/26/2018 SULLY MCLEAN MD M Ot Z11.2 ENCOUNTER FOR SCREENING FOR OTHER BACTER 05/26/2018 SULLY MCLEAN MD Ot K43.2 INCISIONAL HERNIA WITHOUT OBSTRUCTION OR 05/26/2018 SULLY MCLEAN MD M Ot Z98.890 OTHER SPECIFIED POSTPROCEDURAL STATES 05/29/2018 CARIDAD VALENTINO, SULLY M Ot E11.9 TYPE 2 DIABETES MELLITUS WITHOUT COMPLIC 05/29/2018 CARIDAD VALENTINO, SULLY Gomez Ot F31.9 BIPOLAR DISORDER, UNSPECIFIED 05/29/2018 SULLY MCLEAN MD M Ot G47.33 OBSTRUCTIVE SLEEP APNEA (ADULT) (PEDIATR 05/29/2018 SULLY MCLEAN MD M Ot K43.2 INCISIONAL HERNIA WITHOUT OBSTRUCTION OR 05/29/2018 SULLY MCLEAN MD Ot K43.9 VENTRAL HERNIA WITHOUT OBSTRUCTION OR GA 05/29/2018 SULLY MCLEAN MD M Ot K56.7 ILEUS, UNSPECIFIED 05/29/2018 CARIDAD VALENTINO, SULLY Gomez Ot M10.9 GOUT, UNSPECIFIED 05/29/2018 CARIDAD VALENTINO, SULLY Gomez Ot 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 ORAL HYPOGLYC Procedures Code Description Performed By Performed On 56.0 TU REMOV URETER OBSTRUCT 10/16/2009 73201 INDIV PSYTX 45/50 MIN 07/08/2012 38453 PSYTX PT&/FAMILY 45 MINUTES 08/19/2012 55832 PSYTX PT&/FAMILY 45 MINUTES 09/27/2012 94491 PSYTX PT&/FAMILY 45 MINUTES 10/17/2012 62593 PSYTX PT&/FAMILY 45 MINUTES 10/26/2012 01139 ROUTINE VENIPUNCTURE 10/27/2012 15891 UA LONG DIP 10/27/2012 25270 CREATININE 10/27/2012 3733567 GFR CALC (RESULT ONLY) 10/27/2012 84590 LITHIUM 10/27/2012 23795 PSYTX PT&/FAMILY 45 MINUTES 11/23/2012 13828 PSYTX PT&/FAMILY 45 MINUTES 12/07/2012 12817 PSYTX PT&/FAMILY 45 MINUTES 12/21/2012 84343 PSYTX PT&/FAMILY 45 MINUTES 01/23/2013 30102 PSYTX PT&/FAMILY 45 MINUTES 03/27/2013 02243 ROUTINE VENIPUNCTURE 04/03/2013 92585 CBC 04/03/2013 18383 CMP 04/03/2013 1679595 GFR CALC (RESULT ONLY) 04/03/2013 23267 PSYTX PT&/FAMILY 45 MINUTES 04/03/2013 57223 LITHIUM 04/03/2013 45305 TSH 04/03/2013 54610 PSYTX PT&/FAMILY 45 MINUTES 05/26/2013 64874 PSYTX PT&/FAMILY 45 MINUTES 06/09/2013 52781 PSYTX PT&/FAMILY 45 MINUTES 08/22/2013 56477 PSYTX PT&/FAMILY 45 MINUTES 11/10/2013 33258 PSYTX PT&/FAMILY 45 MINUTES 03/06/2014 18391 PSYTX PT&/FAMILY 45 MINUTES 05/21/2014 [id number] SUPPLEMENT ABDOMINAL WALL WITH SYNTH SUB 05/25/2018 Results Test Result Range Methicillin resistant Staphylococcus [...] measurement by glucometer (mass/volume) 196 mg/dL 70-110 Complete blood count (CBC) with automated white blood cell (WBC) differential - 09/05/18 19:24 Blood leukocytes automated count (number/volume) 9.1 10*3/uL 4.3-11.0 Blood erythrocytes automated count (number/volume) 5.58 10*6/uL 4.35-5.85 Venous blood hemoglobin measurement (mass/volume) 16.3 g/dL 13.3-17.7 Blood hematocrit (volume fraction) 47 % 40-54 Automated erythrocyte mean corpuscular volume 85 [foz_us] 80-99 Automated erythrocyte mean corpuscular hemoglobin (mass per erythrocyte) 29 pg 25-34 Automated erythrocyte mean corpuscular hemoglobin concentration measurement ( mass/volume) 35 g/dL 32-36 Automated erythrocyte distribution width ratio 14.6 % 10.0-14.5 Automated blood platelet count (count/volume) 277 10*3/uL 130-400 Automated blood platelet mean volume measurement 9.9 [foz_us] 7.4-10.4 Automated blood neutrophils/100 leukocytes 81 % 42-75 Automated blood lymphocytes/100 leukocytes 11 % 12-44 Blood monocytes/100 leukocytes 7 % 0-12 Automated blood eosinophils/100 leukocytes 2 % 0-10 Automated blood basophils/100 leukocytes 0 % 0-10 Blood neutrophils automated count (number/volume) 7.4 10*3 1.8-7.8 Blood lymphocytes automated count (number/volume) 1.0 10*3 1.0-4.0 Blood monocytes automated count (number/volume) 0.6 10*3 0.0-1.0 Automated eosinophil count 0.1 10*3/uL 0.0-0.3 Automated blood basophil count (count/volume) 0.0 10*3/uL 0.0-0.1 Comprehensive metabolic panel - 09/05/18 19:24 Serum or plasma sodium measurement (moles/volume) 135 mmol/L 135-145 Serum or plasma potassium measurement (moles/volume) 3.8 mmol/L 3.6-5.0 Serum or plasma chloride measurement (moles/volume) 101 mmol/L 98-107 Carbon dioxide 17 mmol/L 21-32 Serum or plasma anion gap determination (moles/volume) 17 mmol/L 5-14 Serum or plasma urea nitrogen measurement (mass/volume) 17 mg/dL 7-18 Serum or plasma creatinine measurement (mass/volume) 1.14 mg/dL 0.60-1.30 Serum or plasma urea nitrogen/creatinine mass ratio 15 NRG Serum or plasma creatinine measurement with calculation of estimated glomerular filtration rate > NRG Serum or plasma glucose measurement (mass/volume) 216 mg/dL 70-105 Serum or plasma calcium measurement (mass/volume) 9.3 mg/dL 8.5-10.1 Serum or plasma total bilirubin measurement (mass/volume) 0.7 mg/dL 0.1-1.0 Serum or plasma alkaline phosphatase measurement (enzymatic activity/volume) 81 U/L 40-136 Serum or plasma aspartate aminotransferase measurement (enzymatic activity/ volume) 49 U/L 5-34 Serum or plasma alanine aminotransferase measurement (enzymatic activity/volume ) 61 U/L 0-55 Serum or plasma protein measurement (mass/volume) 7.5 g/dL 6.4-8.2 Serum or plasma albumin measurement (mass/volume) 4.3 g/dL 3.2-4.5 CALCIUM CORRECTED 9.1 mg/dL 8.5-10.1 Magnesium - 09/05/18 19:24 Magnesium 1.5 mg/dL 1.8-2.4 Serum or plasma troponin i.cardiac measurement (mass/volume) - 09/05/18 19:24 Serum or plasma troponin i.cardiac measurement (mass/volume) < ng/ mL <0.028 Serum or plasma amylase measurement (enzymatic activity/volume) - 09/05/18 19: 24 Serum or plasma amylase measurement (enzymatic activity/volume) 51 U /L 25-125 PT panel in platelet poor plasma by coagulation assay - 09/05/18 19:24 Prothrombin time (PT) in platelet poor plasma by coagulation assay 13.2 s 12.2-14.7 INR in platelet poor plasma or blood by coagulation assay 1.0 0.8-1.4 Activated partial thromboplastin time (aPTT) in platelet poor plasma bycoagulation assay - 09/05/18 19:24 Activated partial thromboplastin time (aPTT) in platelet poor plasma bycoagulation assay 28 s 24-35 Blood lactic acid measurement (moles/volume) - 09/05/18 19:24 Blood lactic acid measurement (moles/volume) 3.49 mmol/L 0.50-2.00 Lipase - 09/05/18 19:24 Lipase 28 U/L 8-78 Serum or plasma creatine kinase measurement (enzymatic activity/volume) - 09/05 19:24 Serum or plasma creatine kinase measurement (enzymatic activity/volume) 131 U/L 30-200 Serum or plasma creatine kinase MB measurement (enzymatic activity/volume) - 19:24 Serum or plasma creatine kinase MB measurement (enzymatic activity/volume) 3.7 ng/mL <6.6 Myoglobin, serum - 09/05/18 19:24 Myoglobin, serum 86.2 ng/mL 10.0-92.0 Serum or plasma lithium measurement (moles/volume) - 09/05/18 19:24 BNP level 14.0 pg/mL <100.0 Influenza virus A and B antigen detection - 09/05/18 19:29 FLU RESULT NEGATIVE FOR INFLUENZA A AND B ANTIGENS BY IA NRG Arterial blood gas measurement - 09/05/18 20:18 Blood pCO2 38 mm[Hg] 35-45 Blood pO2 72 mm[Hg] 79-93 Arterial blood bicarbonate measurement (moles/volume) 23 mmol/L 23-27 Arterial blood base excess by calculation -1.6 mmol/L - 2.5-2.5 Arterial blood oxygen saturation measurement 95 % 94-100 * Inhaled oxygen flow rate N NRG Arterial blood pH measurement with patient temperature correction 7.40 7.37-7.43 Arterial blood carbon dioxide, total measurement (moles/volume) 23.8 mmol/L 21.0-31.0 Body site RIGHT RADIAL NRG Assessment of wrist artery patency prior to arterial puncture POSITIVE NRG Setting of ventilation mode NO NRG Measurement of body temperature 98.1 NRG Serum or plasma lactate measurement (moles/volume) - 09/05/18 21:24 Serum or plasma lactate measurement (moles/volume) 1.93 mmol/L 0.50-2.00 Complete urinalysis with reflex to culture - 09/05/18 22:08 Urine color determination YELLOW NRG Urine clarity determination CLEAR NRG Urine pH measurement by test strip 5 5-9 Specific gravity of urine by test strip 1.010 1.016- 1.022 Urine protein assay by test strip, semi-quantitative 2+ NEGATIVE Urine glucose detection by automated test strip NEGATIVE NEGATIVE Erythrocytes detection in urine sediment by light microscopy NEGATIVE NEGATIVE Urine ketones detection by automated test strip 1+ NEGATIVE Urine nitrite detection by test strip NEGATIVE NEGATIVE Urine total bilirubin detection by test strip NEGATIVE NEGATIVE Urine urobilinogen measurement by automated test strip (mass/volume) NORMAL NORMAL Urine leukocyte esterase detection by dipstick NEGATIVE NEGATIVE Automated urine sediment erythrocyte count by microscopy (number/high power field) NONE NRG Automated urine sediment leukocyte count by microscopy (number/high power field ) NONE NRG Bacteria detection in urine sediment by light microscopy NEGATIVE NRG Squamous epithelial cells detection in urine sediment by light microscopy 0-2 NRG Crystals detection in urine sediment by light microscopy NONE NRG Casts detection in urine sediment by light microscopy NONE NRG Mucus detection in urine sediment by light microscopy MODERATE NRG Complete urinalysis with reflex to culture NO NRG Encounters ACCT No. Visit Date/Time Discharge Status Pt. Type Provider Facility Loc./Unit Complaint [id number] 05/21/2014 11:01:00 05/21/2014 23:59:59 [facility] Outpatient ADEEL MICHELLE PHD [id number] 03/05/2014 14:10:00 03/05/2014 23:59:59 [facility] Outpatient ADEEL MICHELLE PHD [id number] 11/09/2013 10:54:00 11/09/2013 23:59:59 [facility] Outpatient ADEEL MICHELLE PHD [id number] 08/21/2013 12:52:00 08/21/2013 23:59:59 [facility] Outpatient ADEEL MICHELLE PHD [id number] 06/08/2013 09:42:00 06/08/2013 23:59:59 [facility] Outpatient ADEEL MICHELLE PHD [id number] 05/25/2013 09:56:00 05/25/2013 23:59:59 [facility] Outpatient ADEEL MICHELLE PHD [id number] 04/03/2013 10:50:00 04/03/2013 23:59:59 [facility] Outpatient STAR RUSSO DO [id number] 10/27/2012 13:44:00 10/27/2012 23:59:59 CLS Outpatient STAR RUSSO DO [id number] 10/25/2012 09:31:00 10/25/2012 23:59:59 CLS Outpatient [id number] 10/14/2012 13:44:00 10/14/2012 23:59:59 CLS Outpatient [id number] 09/26/2012 13:49:00 09/26/2012 23:59:59 CLS Outpatient [id number] 09/02/2012 09:56:00 09/02/2012 23:59:59 CLS Outpatient [id number] 08/18/2012 15:01:00 08/18/2012 23:59:59 CLS Outpatient [id number] 07/08/2012 09:48:00 07/08/2012 23:59:59 CLS Outpatient [id number] 07/08/2012 09:48:00 07/08/2012 23:59:59 CLS Outpatient [id number] 03/23/2013 12:46:00 Document Registration [id number] 01/20/2013 07:52:00 Document Registration [id number] 12/20/2012 08:59:00 Document Registration [id number] 12/06/2012 08:49:00 Document Registration [id number] 11/22/2012 08:39:00 Document Registration [id number] 03/04/2015 22:27:59 ACT Document Registration [id number] 04/22/2017 14:30:00 04/22/2017 23:59:59 CLS Outpatient STAR RUSSO DO [facility] [id number] 05/27/2018 14:04:00 05/29/2018 14:10:00 DIS Inpatient SULLY MCLEAN MD [facility] 4TH VENTRAL HERNIA, LEFT LOWER QUAD HERNIA [id number] 05/23/2018 11:32:00 05/23/2018 13:40:00 DIS Outpatient SULLY MCLEAN MD [facility] PREOP VENTRAL HERNIA, LEFT LOWER QUAD HERNIA [id number] 04/26/2018 09:53:00 04/26/2018 23:59:59 CLS Outpatient SULLY MCLEAN MD [facility] RAD RECURRENT VENTRAL HERNIA [id number] 01/08/2017 06:39:00 01/08/2017 23:59:59 CLS Outpatient YOMI NY DO [facility] CARD R53.83,I10,R07.9 [id number] 01/06/2017 13:38:00 01/06/2017 23:59:59 CLS Outpatient YOMI NY DO [facility] CARD R53.83,I10,R07.9 [id number] 09/24/2016 09:45:00 09/24/2016 23:59:59 CLS Outpatient YOMI NY DO [facility] LAB RECURRENT FOLLICULITIS [id number] 10/29/2015 14:06:00 10/29/2015 14:42:00 DIS Outpatient VENICE ARAUZ DO [facility] SLEEP ANNITA [id number] 08/12/2015 06:00:00 08/12/2015 14:20:00 DIS Outpatient SULLY MCLEAN MD [facility] SDC DYSKNESIA [id number] 08/07/2015 09:58:00 08/07/2015 23:59:59 CLS Outpatient SULLY MCLEAN MD [facility] PREOP DYSKNESIA [id number] 06/04/2015 12:25:00 06/04/2015 23:59:59 CLS Outpatient YOMI NY DO [facility] CARD PALPITATIONS,ABD PAIN [id number] 02/26/2015 14:17:00 03/27/2015 15:49:00 DIS Outpatient MELISSA BISHOP [facility] REHAB S/P LUMBAR FUSION BILATERAL LE WEAKNESS [id number] 03/04/2015 22:27:00 03/05/2015 02:13:00 DIS Emergency ARTUR KARI JACKSON [facility] ER POSS HERNIA [id number] 11/19/2014 14:00:00 11/19/2014 23:59:59 CLS Outpatient YOMI NY DO [facility] HH URGENCY, POSSIBLE UTI [id number] 08/24/2014 13:23:00 08/24/2014 23:59:59 CLS Outpatient VENICE ARAUZ DO [facility] RT ANNITA, [id number] 07/10/2014 07:35:00 07/10/2014 12:33:00 DIS [facility] AND LEFT RENAL STONE [id number] 07/06/2014 10:51:00 07/06/2014 23:59:59 CLS Outpatient CHAD COREA MD [facility] PREOP RT URETERAL STONE AND LT RENAL STONE [id number] 07/03/2014 14:17:00 07/03/2014 23:59:59 CLS Outpatient ELVIS PHILLIPS [facility] RAD R URETEROLITHASIS [id number] 07/02/2014 20:15:00 07/02/2014 23:45:00 DIS Emergency ELVIS PHILLIPS [facility] ER KIDNEY STONE [id number] 02/02/2014 10:20:00 02/02/2014 12:40:00 DIS Emergency EDUIN WALKER MD [facility] ER LOWER LEFT ADB PAIN [id number] 01/03/2014 13:45:00 01/03/2014 23:59:59 CLS Outpatient CHAD COREA MD [facility] RAD RENAL STONES [id number] 10/30/2013 10:40:00 12/27/2013 09:22:00 DIS Outpatient ELIZABETH SNACHEZ MD [facility] REHAB LUMBAR STENOSIS AND SPONDYLOLESTHESIS [id number] 12/11/2013 23:31:00 12/12/2013 02:00:00 DIS Emergency KARI SIDDIQUI DO [facility] ER CAN'T URINATE [id number] 12/07/2013 09:49:00 12/07/2013 12:39:00 DIS Emergency MARLEY FREEDMAN MD [facility] ER NECK PAIN/BODYACHES [id number] 12/06/2013 08:23:00 12/06/2013 15:35:00 DIS Outpatient CHAD COREA MD [facility] LEFT RENAL STONE [id number] 2013 21:41:00 2013 22:30:00 DIS Emergency AARON VALENTINO, EDUIN Bejarano [facility] ER SORE THROAT, SWOLLEN TONGUE, DIFFICULTY SWALLOWING [id number] 12/01/2013 10:13:00 12/01/2013 23:59:59 CLS Outpatient CHAD COREA MD [facility] PREOP LEFT RENAL STONE [id number] 11/28/2013 09:08:00 11/28/2013 23:59:59 CLS Outpatient CHAD COREA MD [facility] RAD STONE [id number] 11/22/2013 12:19:00 11/22/2013 23:59:59 CLS Outpatient NESHA NY [facility] RAD HEMATURIA/FLANK PAIN/HX OF STONES [id number] 11/20/2013 11:27:00 11/20/2013 13:57:00 DIS Emergency KARI SIDDIQUI DO [facility] ER UNCOMFORTABLE THROAT PAIN BACK PAIN [id number] 11/20/2013 03:48:00 11/20/2013 05:04:00 DIS Emergency AARON VALENTINO, EDUIN Bejarano [facility] ER DIFFICULTY SWALLOWING [id number] 11/17/2013 23:20:00 11/18/2013 01:43:00 DIS Emergency MELISSA MARTINEZ MD [facility] ER ANKLE SWELLING,KIDNEY STONE [id number] 11/03/2013 02:01:00 11/03/2013 02:47:00 DIS Emergency MICHAEL MCGINNIS MD [facility] ER FEELS LIKE SOMETHING CAUGHT IN THROAT [id number] 10/23/2013 06:43:00 10/23/2013 09:00:00 DIS Outpatient SULLY MCLEAN MD [facility] SDC DIARRHEA [id number] 10/18/2013 07:41:00 10/18/2013 23:59:59 CLS Outpatient SULLY MCLEAN MD [facility] PREOP DIARRHEA [id number] 10/11/2013 18:03:00 10/12/2013 18:00:00 DIS Inpatient YOMI NY DO [facility] CSD TACHYCARDIA,DYSPNEA [id number] 10/03/2013 09:17:00 10/03/2013 14:54:00 DIS Outpatient DANIEL VALENTINO, ELIZABETH Bejarano [facility] RAD LUMBAR STUN [id number] 08/31/2013 10:29:00 09/04/2013 13:15:00 DIS Inpatient YOMI NY DO [facility] 4TH FECAL IMPACTION [id number] 08/27/2013 12:30:00 08/27/2013 18:35:00 DIS Emergency BAR PA, ELVIS Bhakta [facility] ER CONSTIPATION [id number] 04/28/2013 20:02:00 04/29/2013 07:05:00 DIS Outpatient BETINA VALENTINO, OUMAR Argueta [facility] SLEEP ANNITA [id number] 12/14/2012 15:12:00 12/14/2012 23:59:59 CLS Outpatient RIDINGS, NESHA Ahumada DIRECTOR OUTPATIENT SERVICES [facility] RAD HEMATURIA [id number] 09/05/2018 22:20:00 ACT Inpatient TANO VALENTINO, MARLEY Car [facility] 4TH WEAKNESS,DIZZINESS,NEW RBBB,NIDDM, HYPOMAGNESEMIA [id number] 11/12/2015 14:10:00 Document Registration [id number] 05/20/2015 00:27:00 Document Registration [id number] 01/15/2015 08:08:00 Document Registration [id number] 01/15/2015 08:08:00 Document Registration [id number] 10/07/2012 18:48:00 Document Registration [id number] 2011 06:24:00 Document Registration [id number] 09/24/2011 14:07:00 Document Registration [id number] 08/03/2011 15:15:00 Document Registration [id number] 07/21/2011 14:31:00 Document Registration [id number] 2010 14:32:00 Document Registration [id number] 11/10/2010 12:46:00 Document Registration [id number] 01/08/2010 11:21:00 Document Registration [id number] 12/16/2009 13:02:00 Document Registration [id number] 12/09/2009 14:52:00 Document Registration [id number] 05/12/2018 16:27:33 ACT Unknown
[2018-09-05 23:15] VITALS: BP 188/82
--- NOTE | 2018-09-05 23:15 | NUR ---
OUMAR ORELLANA admitted to room 427-1, with an admitting diagnosis of WEAKNESS, DIZZINESS, NEW RIGHT BBB, HYPOMAGNESEMIA, LACTIC ACIDOSIS, NIDDM , on 09/05/18 from ED via WHEELCHAIR, accompanied by HOSPITAL STAFF. OUMAR ORELLANA introduced to surroundings, call light, bed controls, phone, TV, temperature control, lights, meal times, smoking policy, visitor policy, side rail policy, bathrooms and showers. Patient Rights given to patient in the handbook.OUMAR ORELLANA verbalizes understanding that [facility] is not responsible for the loss or damage to any personal effects or valuables that are kept in the patients posession during their hospitalization. OUMAR ORELLANA verbalizes understanding of Interdisciplinary Patient Education. Patient and/or family were informed about the Rapid Response Team and its purpose.
[2018-09-06] VITALS (9 sets, daily range): BP systolic 117–188; BP diastolic 59–89
[2018-09-06] MEDS ORDERED: ONDANSETRON 4 MG/2 ML (SDV) Z0FRAN IV PRN (00:15)
[2018-09-06] MEDS: NS IV 1000 ML 1,000 ML IV SCH ×3 (00:19→20:18)
[2018-09-06] MEDS: IBUPROFEN 600 MG (MOTRIN) TAB PO PRN ×2 (03:04→11:06)
[2018-09-06 06:17] LABS: BASOPHILS % (AUTO) 0 % (0-10); EOSINOPHILS % (AUTO) 0 % (0-10); HEMATOCRIT 47 % (40-54); HEMOGLOBIN 15.7 G/DL (13.3-17.7); LYMPHOCYTES # (AUTO) 0.5 X 10^3 (1.0-4.0); LYMPHOCYTES % (AUTO) 6 % (12-44); MEAN CORPUSCULAR HEMOGLOBIN 29 PG (25-34); MEAN CORPUSCULAR HGB CONC 33 G/DL (32-36); MEAN CORPUSCULAR VOLUME 86 FL (80-99); MONOCYTES # (AUTO) 0.1 X 10^3 (0.0-1.0); MONOCYTES % (AUTO) 1 % (0-12); NEUTROPHILS # (AUTO) 6.8 X 10^3 (1.8-7.8); NEUTROPHILS % (AUTO) 93 % (42-75); PLATELET COUNT 270 10^3/uL (130-400); RED CELL DISTRIBUTION WIDTH 14.3 % (10.0-14.5); WHITE BLOOD COUNT 7.3 10^3/uL (4.3-11.0)
[2018-09-06 06:46] LABS: ALANINE AMINOTRANSFERASE 50 U/L (0-55); ALBUMIN 4.2 GM/DL (3.2-4.5); ALKALINE PHOSPHATASE 90 U/L (40-136); BILIRUBIN,TOTAL 0.5 MG/DL (0.1-1.0); BUN/CREATININE RATIO 15; CALCIUM 9.1 MG/DL (8.5-10.1); CARBON DIOXIDE 19 MMOL/L (21-32); CHLORIDE 101 MMOL/L (98-107); GFR ESTIMATED > 60; GLUCOSE 269 MG/DL (70-105); MAGNESIUM 2.3 MG/DL (1.8-2.4); POTASSIUM 4.7 MMOL/L (3.6-5.0); SODIUM 133 MMOL/L (135-145); TOTAL PROTEIN 7.5 GM/DL (6.4-8.2)
[2018-09-06 07:20] LABS: NEUTROPHILS % (MANUAL) 92 %
[2018-09-06 07:21] LABS: BAND NEUTROPHILS 1 %; BASOPHILS % (MANUAL) 0 %; EOSINOPHILS % (MANUAL) 0 %; LYMPHOCYTES % (MANUAL) 0 %; MONOCYTES % (MANUAL) 0 %; RBC MORPH NORMAL; REACTIVE LYMPHOCYTES 7 %
--- NOTE | 2018-09-06 07:40 | NUR ---
CALLED DR. LOCKE AND INFORMED HIM OF CONSULT. RECEIVED ORDERS FOR ECHO AND THIS MORNING'S EKG TO CHART. DR. LOCKE ALSO STATED THAT FROM HIS STANDPOINT, THE PATIENT CAN EAT AND DOES NOT NEED TO BE NPO OR ON CLEAR LIQUID DIET.
[2018-09-06] MEDS: inSUlin ASPART (NovoLOG) 1 UNIT/0.01 ML (CHARGE PER UNIT) SC SCH ×4 (08:08→21:00)
[2018-09-06] MEDS ORDERED: PANTOPRAZOLE 40 MG (PROTONIX) VIAL IV SCH (09:00)
[2018-09-06] MEDS ORDERED: METR45GE TP (09:05)
[2018-09-06] MEDS ORDERED: KETO120S2 TOP (09:05)
[2018-09-06] MEDS ORDERED: METR60GE4 TP (09:05)
[2018-09-06] MEDS ORDERED: FLUT9.9S NS (09:05)
[2018-09-06] MEDS ORDERED: VNL75T PO (09:05)
[2018-09-06] MEDS ORDERED: CLIN60LO TP (09:05)
--- NOTE | 2018-09-06 09:12 | NUR ---
SPOKE WITH THE PATIENT ABOUT HIS MEDICATIONS. HE HAD A LIST WITH HIM AND WE WENT OVER THE EXT MED HX. HE FILLED VENLAFAXINE 75MG #60 09-01-18 - HE STATES HE HAS TAKEN THIS IN THE PAST BUT WAS RECENTLY PUT BACK ON IT. HE TOOK ONE DOSE BEFORE HIS DIZZINESS, ILLNESS SYMPTOMS BECAUSE WORSE HOWEVER HE ADMITS HE WASN'T FEELING GREAT BEFORE THAT SO IT MAY BE UNRELATED TO THIS MEDICATION BEING STARTED. HE WILL DISCUSS WITH HIS DRMeenu BEFORE CONTINUING. I DID ADD IT TO THE MED REC AT THIS TIME. IN ADDITION TO WHAT IS SHOWN ON THE EXT MED HX EMIL YIN FILLED: 07-30-18 AMLODIPINE 5MG DAILY #30 07-30-18 METFORMIN 500MG 2 BID #120 07-30-18 ALLOPURINOL 300MG DAILY #30 04-28-18 LAMOTRIGINE 200MG BID #180 (LIST STATES 2 BID HOWEVER IT WAS FILLED 1 BID AND IS PAST DUE, HE STATES HE WAS IN HOSPITAL FOR A BIT AND HAS SOME SUPPLY BUILT UP) HE TAKES FLONASE NASAL SPRAY OTC NEEDED.
--- NOTE | 2018-09-06 12:04 | Short Stay Summary-Hospitalist ---
History of Present Illness Date Seen 09/06/18 Time Seen by a Provider: 11:00 Attending Physician Andrea Krueger MD PCP Max Thomas DO Referring Physician Date of Admission Sep 05, 2018 at 22:20 Home Medications & Allergies Home Medications Reviewed patient Home Medication Reconciliation performed by pharmacy medication reconciliations certified appliance service technician and/or nursing. Patients Allergies have been reviewed. Allergies Allergies Coded Allergies Sulfa (Sulfonamide Antibiotics) (Verified Allergy, Intermediate, ITCHING/ NAUSEA, 08/07/15) Iodinated Contrast- Oral and IV Dye (Verified Allergy, Mild, FACIAL ALVAREZ, ) aspirin (Verified Allergy, Mild, GI UPSET, 05/23/18) clomipramine (Verified Allergy, Mild, 12/01/13) Past Isyrmvo-Zbqoby-Joyyhd Hx Patient Social History Alcohol Use: Denies Use Recreational Drug Use: No Smoking Status: Never a Smoker Recent Foreign Travel: No Contact w/other who traveled: No Recent Hopitalizations: No Recent Infectious Disease Expo: No Immunizations Up To Date Date of Pneumonia Vaccine: Sep 06, 2014 Date of Influenza Vaccine: May 09, 2018 Seasonal Allergies Seasonal Allergies: Yes Past Medical History Surgeries: Abdominal, Gallbladder, Orthopedic Currently Using CPAP: Yes Cardiac: High Cholesterol, Hypertension Reproductive: No Sexually Transmitted Disease: No HIV/AIDS: No Genitourinary: Kidney Stones Gastrointestinal: Chronic Constipation, Diverticulosis Musculoskeletal: Degenerate Disk Disease, Arthritis, Chronic Back Pain, Gout Endocrine: Diabetes, Non-Insulin dep Loss of Vision: Bilateral Hearing Impairment: Denies Psychosocial: Anxiety, Bipolar, Depression 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) Adverse Reaction to Blood Gonzalez: No (NO REACTION) Family History Cancer GRANDMOTHER (BREAST CA PATERNAL) Cataract GRANDMOTHER (PATERNAL) Congestive heart failure 03 FATHER GRANDMOTHER (PATERNAL) Family history: Allergy 03 MOTHER Family history: Arthritis 03 MOTHER Family history: Asthma 09 BROTHER Family history: Cardiovascular disease 03 FATHER ( OF HEARD DISEASE) Family history: Diabetes mellitus GRANDMOTHER (PATERNAL) GRANDFATHER AUNT (PATERNAL) Family history: Glaucoma AUNT (PATERNAL) Family history: Hypertension 03 FATHER Family history: Thyroid disorder 03 MOTHER Heart disease 03 FATHER GRANDMOTHER (PATERNAL) History of - anemia 03 MOTHER Hypercholesterolemia 03 FATHER Myocardial infarction 03 FATHER Stroke GRANDMOTHER (PATERNAL) Physical Exam Physical Exam Vital Signs Vital Signs - First Documented 09/05/18 19:16 Temp 98.1 Pulse 110 Resp 19 B/P (MAP) 163/96 (118) O2 Delivery Room Air Capillary Refill : Less Than 3 Seconds Height, Weight, BMI Height: 5'9.00" Weight: 292lbs. 3.0oz. [id number]; 42.8 BMI Method:Stated Results Results/Procedures Labs Laboratory Tests 09/05/18 19:24 09/06/18 05:40 Patient resulted labs reviewed. Clinical Quality Measures DVT/VTE Risk/Contraindication: Risk Factor Score Per Nursin RFS Level Per Nursing on Admit: 2=Moderate ARLENE KHANNA MD Sep 06, 2018 12:04
--- NOTE | 2018-09-06 12:09 | Consultation-Cardiology ---
HPI-Cardiology Cardiology Consultation: Date of Consultation 09/06/18 Time Seen by a Provider: 10:30 Date of Admission Attending Physician Andrea Krueger MD Admitting Physician Max Thomas DO Consulting Physician PITER LOCKE MD, MA, FACP, FACC, FSCAI, CCDS HPI: Chief Complaint: CC: Dizziness, nausea, anxiety HPI 57 yo man admitted to Dr Sterling on 09/05/18 with and episode of nausea and vomiting and gen dizziness and feeling of malaise and anxiety that persisted for several hours. He states he felt unwell enough to call the ambulance. Better now, but still has feeling of dizziness and malaise. Note mild, exertional shortness of breath, slowly progressive for a long time, unchanged in the recent past. Does not report cp. Denies palp or syncope or leg swelling Review of Systems-Cardiology Review of Systems Constitutional: As described under HPI Eyes: No vision change Ears/Nose/Throat: No ear discharge, No nasal drainage, No recent hearing loss Respiratory: As described under HPI Cardiovascular: As described under HPI Gastrointestinal: As described under HPI Genitourinary: No dysuria, No hematuria, No urine frequency changes Musculoskeletal: back pain (chronic) Skin: No ulcerations Psychiatric/Neurological: No focal weakness, No syncope Hematologic: No bleeding abnormalities WML-Rbtvem-Azjmgo Hx Patient Social History Alcohol Use: Denies Use Recreational Drug Use: No Smoking Status: Never a Smoker Recent Foreign Travel: No Recent Infectious Disease Expo: No Hospitalization with Isolation: Denies Immunizations Up To Date Date of Pneumonia Vaccine: Sep 06, 2014 Date of Influenza Vaccine: May 09, 2018 Past Medical History PMH As described under Assessment. Family Medical History Family History: Cancer GRANDMOTHER (BREAST CA PATERNAL) Cataract GRANDMOTHER (PATERNAL) Congestive heart failure 03 FATHER GRANDMOTHER (PATERNAL) Family history: Allergy 03 MOTHER Family history: Arthritis 03 MOTHER Family history: Asthma 09 BROTHER Family history: Cardiovascular disease 03 FATHER ( OF HEARD DISEASE) Family history: Diabetes mellitus GRANDMOTHER (PATERNAL) GRANDFATHER AUNT (PATERNAL) Family history: Glaucoma AUNT (PATERNAL) Family history: Hypertension 03 FATHER Family history: Thyroid disorder 03 MOTHER Heart disease 03 FATHER GRANDMOTHER (PATERNAL) History of - anemia 03 MOTHER Hypercholesterolemia 03 FATHER Myocardial infarction 03 FATHER Stroke GRANDMOTHER (PATERNAL) Allergies and Home Medications Allergies Coded Allergies: Sulfa (Sulfonamide Antibiotics) (Verified Allergy, Intermediate, ITCHING/ NAUSEA, 08/07/15) Iodinated Contrast- Oral and IV Dye (Verified Allergy, Mild, FACIAL ALVAREZ , 05/23/18) aspirin (Verified Allergy, Mild, GI UPSET, 05/23/18) clomipramine (Verified Allergy, Mild, 12/01/13) Home Medications Allopurinol 300 Mg Tablet, 300 MG PO DAILY, (Reported) Amlodipine Besylate 5 Mg Tablet, 5 MG PO HS, (Reported) Cephalexin 500 Mg Tablet, 500 MG PO BID, (Reported) Cetirizine HCl 10 Mg Tablet, 10 MG PO DAILY, (Reported) Clindamycin Phosphate 60 Ml Lotion, TP DAILY PRN for BREAKOUT, (Reported) Ergocalciferol (Vitamin D2) 50,000 Unit Capsule, 50,000 UNIT PO Sa, (Reported) Fluticasone Propionate 9.9 Ml [place].susp, 1 SPRAY NS DAILY PRN for ALLERGIES, ( Reported) Hydrochlorothiazide 25 Mg Tablet, 25 MG PO DAILY, (Reported) Ketoconazole 120 Ml Shampoo, TOP DAILY, (Reported) Lamotrigine 200 Mg Tab, 200 MG PO BID, (Reported) LAST FILLED #180 04-28-18 Metformin HCl 500 Mg Tablet, 1,000 MG PO BID, (Reported) TAKES 2 (500MG) TABLETS Metronidazole 45 Gm Gel..gram., TP DAILY PRN for BREAKOUT, (Reported) Potassium Citrate 10 Meq Tablet.er, 20 MEQ PO BID, (Reported) TAKES 2 (10MEQ) TABLETS Venlafaxine HCl 75 Mg Tab, 75 MG PO BID, (Reported) Patient Home Medication List Home Medication List Reviewed: Yes Physical Exam-Cardiology Physical Exam Vital Signs/I&O 09/06/18 09/06/18 09/06/18 09/06/18 00:29 00:30 01:00 01:30 Temp 97.8 97.6 Pulse 103 111 100 103 Resp 20 18 B/P (MAP) 188/82 (117) 163/83 (109) Pulse Ox 98 98 O2 Delivery Room Air Room Air 09/06/18 09/06/18 09/06/18 09/06/18 03:15 03:30 05:30 08:00 Temp 98.5 97.5 96.8 Pulse 100 99 99 97 Resp 18 18 20 B/P (MAP) 135/75 (95) 165/85 (111) 137/67 (90) Pulse Ox 96 95 97 O2 Delivery Room Air Room Air Room Air 09/06/18 08:56 Pulse 94 09/06/18 00:00 Intake Total 1200 ml Balance 1200 ml Capillary Refill : Less Than 3 Seconds Constitutional: AAO x 3, well-developed, well-nourished HEENT: EOMI, hearing is well preserved, oral hygience is good; No xanthelasmas are seen Neck: No carotid bruit; carotid pulses are 2 + bilaterally, with good upstrokes Respiratory: No accessory muscle use; lungs clear to percussion, lungs clear to auscultation Cardiovascular: regular rate-rhythm, S1 and S2, systolic murmur (faint TISHA at card base) Gastrointestinal: No tender; soft; No guarding, No rebound; audible bowel sounds Extremities: No clubbing, No cyanosis, No significant edema Neurologic/Psychiatric: oriented x 3, grossly intact, power is 5/5 both on sides Skin: warm/dry; No cyanosis, No cool, No rash on exposed areas, No ulcerations on exposed areas Data Review Labs Laboratory Tests 09/05/18 19:24: White Blood Count 9.1, Red Blood Count 5.58, Hemoglobin 16.3, Hematocrit 47, Mean Corpuscular Volume 85, Mean Corpuscular Hemoglobin 29, Mean Corpuscular Hemoglobin Concent 35, Red Cell Distribution Width 14.6H, Platelet Count 277, Mean Platelet Volume 9.9, Neutrophils (%) (Auto) 81H, Lymphocytes (%) (Auto) 11L , Monocytes (%) (Auto) 7, Eosinophils (%) (Auto) 2, Basophils (%) (Auto) 0, Neutrophils # (Auto) 7.4, Lymphocytes # (Auto) 1.0, Monocytes # (Auto) 0.6, Eosinophils # (Auto) 0.1, Basophils # (Auto) 0.0, Prothrombin Time 13.2, INR Comment 1.0, Activated Partial Thromboplast Time 28, Sodium Level 135, Potassium Level 3.8, Chloride Level 101, Carbon Dioxide Level 17L, Anion Gap 17H , Blood Urea Nitrogen 17, Creatinine 1.14, Estimat Glomerular Filtration Rate > 60, BUN/Creatinine Ratio 15, Glucose Level 216H, Lactic Acid Level 3.49*H, Calcium Level 9.3, Corrected Calcium 9.1, Magnesium Level 1.5L, Total Bilirubin 0.7, Aspartate Amino Transf (AST/SGOT) 49H, Alanine Aminotransferase (ALT/SGPT) 61H, Alkaline Phosphatase 81, Total Creatine Kinase 131, Creatine Kinase MB 3.7 , Myoglobin 86.2, Troponin I < 0.028, B-Type Natriuretic Peptide 14.0, Total Protein 7.5, Albumin 4.3, Amylase Level 51, Lipase 28 09/05/18 20:18: Blood Gas Puncture Site RIGHT RADIAL, Blood Gas Patient Temperature 98.1, Arterial Blood pH 7.40, Arterial Blood Partial Pressure CO2 38, Arterial Blood Partial Pressure O2 72L, Arterial Blood HCO3 23, Arterial Blood Total CO2 23.8, Arterial Blood Oxygen Saturation 95, Arterial Blood Base Excess -1.6, Raul Test POSITIVE, Blood Gas Ventilator Setting NO, Blood Gas Inspired Oxygen N 09/05/18 21:24: Lactic Acid Level 1.93 09/05/18 22:08: Urine Color YELLOW, Urine Clarity CLEAR, Urine pH 5, Urine Specific [place] 1.010L, Urine Protein 2+H, Urine Glucose (UA) NEGATIVE, Urine Ketones 1+H, Urine Nitrite NEGATIVE, Urine Bilirubin NEGATIVE, Urine Urobilinogen NORMAL, Urine Leukocyte Esterase NEGATIVE, Urine RBC (Auto) NEGATIVE, Urine RBC NONE, Urine WBC NONE, Urine Squamous Epithelial Cells 0-2, Urine Crystals NONE, Urine Bacteria NEGATIVE, Urine Casts NONE, Urine Mucus MODERATEH, Urine Culture Indicated NO 09/06/18 01:30: Troponin I < 0.028 09/06/18 05:40: White Blood Count 7.3, Red Blood Count 5.50, Hemoglobin 15.7, Hematocrit 47, Mean Corpuscular Volume 86, Mean Corpuscular Hemoglobin 29, Mean Corpuscular Hemoglobin Concent 33, Red Cell Distribution Width 14.3, Platelet Count 270, Mean Platelet Volume 10.0, Neutrophils (%) (Auto) 93H, Lymphocytes (%) (Auto) 6L , Monocytes (%) (Auto) 1, Eosinophils (%) (Auto) 0, Basophils (%) (Auto) 0, Neutrophils # (Auto) 6.8, Lymphocytes # (Auto) 0.5L, Monocytes # (Auto) 0.1, Eosinophils # (Auto) 0.0, Basophils # (Auto) 0.0, Neutrophils % (Manual) 92, Lymphocytes % (Manual) 0, Monocytes % (Manual) 0, Eosinophils % (Manual) 0, Basophils % (Manual) 0, Band Neutrophils 1, Reactive Lymphocytes 7, Blood Morphology Comment NORMAL, Sodium Level 133L, Potassium Level 4.7, Chloride Level 101, Carbon Dioxide Level 19L, Anion Gap 13, Blood Urea Nitrogen 17, Creatinine 1.10, Estimat Glomerular Filtration Rate > 60, BUN/Creatinine Ratio 15, Glucose Level 269H, Calcium Level 9.1, Corrected Calcium 8.9, Magnesium Level 2.3, Total Bilirubin 0.5, Aspartate Amino Transf (AST/SGOT) 35H, Alanine Aminotransferase (ALT/SGPT) 50, Alkaline Phosphatase 90, Total Protein 7.5, Albumin 4.2 09/06/18 10:52: Glucometer 218H Microbiology 09/05/18 Influenza Types A,B Antigen (MARSHA) - Final, Complete Laboratory Tests 09/05/18 19:24 09/06/18 05:40 A/P-Cardiology Assessment/Admission Diagnosis Dizziness and malaise and shortness of breath of undetermined etiology RBBB of undetermined age (new since last ECG on record of 2013) DM II Obesity with BMI approx 43 Hypertension with hypertensive CVD Echo of 09/06/18: LVEF 60-65%, mild conc LVH, mod enlargement of left atrium, PASP WNL Fam h/o early CAD Surgical history: h/o back surg (details unknown) and ventral abdominal hernia repair Discussion and Recomendations * Treat hypertension with bb * Echo done today, reported above * I answered his CV-related questions and discussed risk factor mod * ETT-MPI advised. Will schedule * I discussed his case with Dr Sterling on the phone Clinical Quality Measures DVT/VTE Risk/Contraindication: Risk Factor Score Per Nursin RFS Level Per Nursing on Admit: 2=Moderate PITER LOCKE MD FACP FAC CCDS Sep 06, 2018 12:09
[2018-09-06] MEDS ORDERED: REGADENOSON 0.4 MG/5 ML SYR (LEXISCAN) IV ONE (14:00)
--- NOTE | 2018-09-06 15:52 | History & Physical-Hospitalist ---
History of Present Illness HPI/Chief Complaint Pt is a 57yoCM with a PMH of bipolar disorder, IDDMII, ANNITA, HTN, and HLD who presented to the Er due to "not feeling well." He states he at breakfast yesterday and then vomited shortly afterwards. He continued to not feel well the rest of the day and when he walked to get his mail that evening he got very SOB and felt flushed. He checked his blood sugar and it was 173. His other vitals were BP 157/102 with a pulse of 103 prompting him to call EMS to bring him to the ER. He was found to have a new RBBB on EKG in the ER and was admitted for further management. He has no complaints today and no further nausea or vomiting. Source: patient Exam Limitations: no limitations Date Seen 09/06/18 Time Seen by a Provider: 11:00 Attending Physician Andrea Krueger MD PCP Max Thomas DO Referring Physician Date of Admission Sep 05, 2018 at 23:15 Home Medications & Allergies Home Medications Reviewed patient Home Medication Reconciliation performed by pharmacy medication reconciliations aircraft ordnance technician and/or nursing. Patients Allergies have been reviewed. Allergies Allergies Coded Allergies Sulfa (Sulfonamide Antibiotics) (Verified Allergy, Intermediate, ITCHING/ NAUSEA, 08/07/15) Iodinated Contrast- Oral and IV Dye (Verified Allergy, Mild, FACIAL ALVAREZ, ) aspirin (Verified Allergy, Mild, GI UPSET, 05/23/18) clomipramine (Verified Allergy, Mild, 12/01/13) Past Iaybifz-Gisytz-Gigroy Hx Past Med/Social Hx: Reviewed Nursing Past Med/Soc Hx Patient Social History Alcohol Use: Denies Use Recreational Drug Use: No Smoking Status: Never a Smoker Recent Foreign Travel: No Contact w/other who traveled: No Recent Hopitalizations: No Recent Infectious Disease Expo: No Immunizations Up To Date Date of Pneumonia Vaccine: Sep 06, 2014 Date of Influenza Vaccine: May 09, 2018 Seasonal Allergies Seasonal Allergies: Yes Past Medical History Surgeries: Abdominal, Gallbladder, Orthopedic Currently Using CPAP: Yes Cardiac: High Cholesterol, Hypertension Reproductive: No Sexually Transmitted Disease: No HIV/AIDS: No Genitourinary: Kidney Stones Gastrointestinal: Chronic Constipation, Diverticulosis Musculoskeletal: Degenerate Disk Disease, Arthritis, Chronic Back Pain, Gout Endocrine: Diabetes, Non-Insulin dep Loss of Vision: Bilateral Hearing Impairment: Denies Psychosocial: Anxiety, Bipolar, Depression 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) Adverse Reaction to Blood Gonzalez: No (NO REACTION) Family History Reviewed Nursing Family Hx Cancer GRANDMOTHER (BREAST CA PATERNAL) Cataract GRANDMOTHER (PATERNAL) Congestive heart failure 03 FATHER GRANDMOTHER (PATERNAL) Family history: Allergy 03 MOTHER Family history: Arthritis 03 MOTHER Family history: Asthma 09 BROTHER Family history: Cardiovascular disease 03 FATHER ( OF HEARD DISEASE) Family history: Diabetes mellitus GRANDMOTHER (PATERNAL) GRANDFATHER AUNT (PATERNAL) Family history: Glaucoma AUNT (PATERNAL) Family history: Hypertension 03 FATHER Family history: Thyroid disorder 03 MOTHER Heart disease 03 FATHER GRANDMOTHER (PATERNAL) History of - anemia 03 MOTHER Hypercholesterolemia 03 FATHER Myocardial infarction 03 FATHER Stroke GRANDMOTHER (PATERNAL) Review of Systems Constitutional: see HPI Respiratory: see HPI, short of breath Cardiovascular: see HPI Gastrointestinal: nausea, vomiting Psychiatric/Neurological: Emotional Problems All Other Systems Reviewed Negative Unless Noted: Yes (Negative excepted noted.) Physical Exam Physical Exam Vital Signs Vital Signs - First Documented 09/05/18 19:16 Temp 98.1 Pulse 110 Resp 19 B/P (MAP) 163/96 (118) O2 Delivery Room Air Capillary Refill : Less Than 3 Seconds Height, Weight, BMI Height: 5'9.00" Weight: 292lbs. 3.0oz. 132.473273pj; 42.8 BMI Method:Stated General Appearance: No Apparent Distress, WD/WN HEENT: PERRL/EOMI, Moist Mucous Membranes Neck: Non Tender, Supple Respiratory: Lungs Clear, No Respiratory Distress Cardiovascular: Regular Rate, Rhythm, No Murmur Gastrointestinal: Normal Bowel Sounds, Non Tender, Soft Extremity: Normal Capillary Refill, No Calf Tenderness Neurologic/Psychiatric: Alert, Oriented x3, Normal Mood/Affect Skin: Normal Color, Warm/Dry Results Results/Procedures Labs Patient resulted labs reviewed. Imaging: Reviewed Imaging Report Assessment/Plan Admission Diagnosis New onset RBBB Admission Status: Observation Diagnosis/Problems Diagnosis/Problems (1) RBBB Assessment & Plan: new onset accompanied by nausea/vomiting/malaise Cardiology consulted, appreciate recs troponin negative Plan for stress test in AM (2) Essential (primary) hypertension Assessment & Plan: Continue home medications (3) HLD (hyperlipidemia) Status: Chronic Assessment & Plan: Declines treatment with statins Qualifiers: Hyperlipidemia type: unspecified Qualified Codes: E78.5 - Hyperlipidemia, unspecified (4) Non-insulin dependent type 2 diabetes mellitus Assessment & Plan: Hold metformin in case needs cath Continue SSI (5) Bipolar disorder Status: Chronic Assessment & Plan: Continue lamictal Was just started on Effexor by his PCP Will resume Qualifiers: Active/Remission status: in remission of unspecified degree Qualified Codes : F31.70 - Bipolar disorder, currently in remission, most recent episode unspecified Clinical Quality Measures DVT/VTE Risk/Contraindication: Risk Factor Score Per Nursin RFS Level Per Nursing on Admit: 2=Moderate ARLENE KHANNA MD Sep 06, 2018 15:52
[2018-09-06] MEDS ORDERED: NON-FORMULARY MEDICATION 1 EA EA (Fluticasone Propionate (Flonase Allergy Relief) 1 SPRAY) NS PRN (16:00)
[2018-09-06] MEDS ORDERED: FLUTICASONE NASAL SPRAY (FLONASE) 16 GM BTL NS PRN (16:15)
[2018-09-06] MEDS: VENlafaxine 75 MG (EFFEXOR) TAB PO SCH (17:21)
[2018-09-06] MEDS ORDERED: PATIENT MAY USE OWN MEDS, ALL MC SCH (17:30)
[2018-09-06] MEDS: LAMOTRIGINE 200 MG TAB PO SCH (20:18)
[2018-09-06] MEDS: POTASSIUM CITRATE 10 MEQ (UROCIT-K) NON-FORMULARY PO SCH (20:19)
[2018-09-06] MEDS ORDERED: amLODIPine 5 MG (NORVASC) TAB PO SCH (21:00)
[2018-09-06] MEDS ORDERED: NON-FORMULARY MEDICATION 1 EA EA (Lamotrigine (Lamictal) 200 MG) PO SCH (21:00)
[2018-09-06] MEDS ORDERED: NON-FORMULARY MEDICATION 1 EA EA (Metformin HCl 1,000 MG) PO SCH (21:00)
[2018-09-06] MEDS ORDERED: NON-FORMULARY MEDICATION 1 EA EA (Amlodipine Besylate 5 MG) PO SCH (21:00)
[2018-09-07 00:06] VITALS: BP 110/59
[2018-09-07 04:56] VITALS: BP 149/86
[2018-09-07] MEDS: VENlafaxine 75 MG (EFFEXOR) TAB PO SCH (06:12)
[2018-09-07] MEDS: inSUlin ASPART (NovoLOG) 1 UNIT/0.01 ML (CHARGE PER UNIT) SC SCH ×2 (06:12→11:56)
[2018-09-07 07:43] LABS: BASOPHILS % (AUTO) 0 % (0-10); EOSINOPHILS # (AUTO) 0.2 10^3/uL (0.0-0.3); EOSINOPHILS % (AUTO) 2 % (0-10); HEMATOCRIT 45 % (40-54); LYMPHOCYTES # (AUTO) 1.7 X 10^3 (1.0-4.0); LYMPHOCYTES % (AUTO) 20 % (12-44); MEAN CORPUSCULAR HEMOGLOBIN 29 PG (25-34); MEAN CORPUSCULAR HGB CONC 33 G/DL (32-36); MEAN CORPUSCULAR VOLUME 87 FL (80-99); MEAN PLATELET VOLUME 9.8 FL (7.4-10.4); MONOCYTES # (AUTO) 0.8 X 10^3 (0.0-1.0); MONOCYTES % (AUTO) 9 % (0-12); NEUTROPHILS # (AUTO) 6.1 X 10^3 (1.8-7.8); NEUTROPHILS % (AUTO) 69 % (42-75); PLATELET COUNT 254 10^3/uL (130-400); RED CELL DISTRIBUTION WIDTH 14.9 % (10.0-14.5); WHITE BLOOD COUNT 8.8 10^3/uL (4.3-11.0)
[2018-09-07 08:00] VITALS: BP 148/96
[2018-09-07 08:11] LABS: BUN/CREATININE RATIO 16; CALCIUM 8.7 MG/DL (8.5-10.1); CARBON DIOXIDE 22 MMOL/L (21-32); CHLORIDE 105 MMOL/L (98-107); CREATININE SERUM 0.93 MG/DL (0.60-1.30); GFR ESTIMATED > 60; GLUCOSE 139 MG/DL (70-105); POTASSIUM 3.8 MMOL/L (3.6-5.0); SODIUM 138 MMOL/L (135-145)
[2018-09-07] MEDS ORDERED: NON-FORMULARY MEDICATION 1 EA EA (Cetirizine HCl 10 MG) PO SCH (09:00)
[2018-09-07] MEDS ORDERED: NON-FORMULARY MEDICATION 1 EA EA (Allopurinol 300 MG) PO SCH (09:00)
[2018-09-07] MEDS ORDERED: HYDROCHLOROTHIAZIDE 25 MG (HCTZ) TAB PO SCH ×2 (09:00)
[2018-09-07] MEDS ORDERED: LORATADINE (CLARITIN) 10 MG TAB PO SCH (09:00)
[2018-09-07] MEDS ORDERED: PANTOPRAZOLE 40 MG (PROTONIX) TAB PO SCH (09:00)
[2018-09-07] MEDS ORDERED: ALLOPURINOL 300 MG (ZYLOPRIM) TAB PO SCH ×2 (09:00)
[2018-09-07] MEDS ORDERED: NON-FORMULARY MEDICATION 1 EA EA (Hydrochlorothiazide 25 MG) PO SCH (09:00)
[2018-09-07] MEDS ORDERED: ceTIRizine 10 MG (ZyrTEC) TAB NON-FORMULARY PO SCH (09:00)
[2018-09-07] MEDS: LAMOTRIGINE 200 MG TAB PO SCH (09:10)
[2018-09-07] MEDS: POTASSIUM CITRATE 10 MEQ (UROCIT-K) NON-FORMULARY PO SCH (09:12)
[2018-09-07 12:00] VITALS: BP 111/67
--- NOTE | 2018-09-07 12:45 | Discharge Inst-Simple/Standard ---
Discharge Inst-Standard Patient Instructions/Follow Up Plan of Care/Instructions/FU: Please continue to take your medications as written. Please follow up with your PCP and with Dr Gautam as scheduled. Activity as Tolerated: Yes Discharge Diet: ADA Diet Return to The Hospital For: Chest pain, shortness of breath, if you feel you are getting worse. ARLENE KHANNA MD Sep 07, 2018 12:45
[2018-09-07] MEDS ORDERED: CATHETER FLUSH 10 ML SYR IV PRN (13:00)
[2018-09-07] MEDS ORDERED: REGADENOSON 0.4 MG/5 ML SYR (LEXISCAN) IV ONE (14:05)
--- NOTE | 2018-09-07 14:25 | Progress Note-Cardiology ---
Cardiology SOAP Progress Note Subjective: No c/o CP, palpitations, dyspnea, syncope or near syncope Objective: I&O/Vital Signs 09/08/18 00:00 Intake Total 200 ml Balance 200 ml Weight (Pounds): 281 Weight (Ounces): 3.2 Weight (Calculated Kilograms): 127.454293 Constitutional: AAO x 3, well-developed, well-nourished Respiratory: No accessory muscle use; lungs clear to percussion, lungs clear to auscultation Cardiovascular: regular rate-rhythm, S1 and S2, systolic murmur (faint TISHA at card base) Gastrointestional: No tender; soft; No guarding, No rebound; audible bowel sounds Extremities: No clubbing, No cyanosis, No significant edema Neurologic/Psychiatric: oriented x 3, grossly intact, power is 5/5 both on sides Skin: warm/dry; No cyanosis, No cool, No rash on exposed areas, No ulcerations on exposed areas Results/Procedures: Labs Microbiology 09/05/18 Blood Culture - Preliminary, Resulted No growth 09/05/18 Influenza Types A,B Antigen (MARSHA) - Final, Complete A/P: Assessment: Dizziness and malaise and shortness of breath of undetermined etiology No evidence of myocardial ischemia or infarction, LVEF 58% on MPI of 09/07/18 RBBB of undetermined age (new since last ECG on record of 2013) DM II Obesity with BMI approx 43 Hypertension with hypertensive CVD Echo of 09/06/18: LVEF 60-65%, mild conc LVH, mod enlargement of left atrium, PASP WNL Fam h/o early CAD Surgical history: h/o back surg (details unknown) and ventral abdominal hernia repair Plan: * Continue current medication regimen * MPI done today - results pending Physician Assessment Physician Assessment LATE ENTRY FOR MY VISIT TO THE PATIENT ON 09/07/18 AT APPROXIMAELY 4:30 P.M. No cp or palp or syncope or shortness of breath. Feels well and wishes to go home Lungs: clear Cor: reg Ext: no c/c/e A&R * As documented in our note above that I updated (italics) and as noted below * Oupt f/u advised * I discussed his case and the results of MPI with Dr Sterling on the phone JENNI EGAN Sep 07, 2018 14:25 PITER LOCKE MD FACP FACC CCDS Sep 08, 2018 16:59
--- NOTE | 2018-09-07 14:33 | Discharge Summary-Hospitalist ---
Diagnosis/Chief Complaint Date of Admission Sep 05, 2018 at 23:15 Date of Discharge Discharge Date: Sep 07, 2018 Admission Diagnosis New onset RBBB Discharge Diagnosis (1) RBBB Assessment & Plan: new onset accompanied by nausea/vomiting/malaise Cardiology consulted, appreciate recs troponin negative Plan for stress test in AM (2) Essential (primary) hypertension Assessment & Plan: Continue home medications (3) HLD (hyperlipidemia) Status: Chronic Assessment & Plan: Declines treatment with statins (4) Non-insulin dependent type 2 diabetes mellitus Assessment & Plan: Hold metformin in case needs cath Continue SSI (5) Bipolar disorder Status: Chronic Assessment & Plan: Continue lamictal Was just started on Effexor by his PCP Will resume Discharge Summary Procedures/Consulations Cardiology- Dr Gautam Discharge Physical Exam Allergies: Coded Allergies: Sulfa (Sulfonamide Antibiotics) (Verified Allergy, Intermediate, ITCHING/ NAUSEA, 08/07/15) Iodinated Contrast- Oral and IV Dye (Verified Allergy, Mild, FACIAL ALVAREZ , 05/23/18) aspirin (Verified Allergy, Mild, GI UPSET, 05/23/18) clomipramine (Verified Allergy, Mild, 12/01/13) Vitals & I&Os Vital Signs Date Time Temp Pulse Resp B/P (MAP) Pulse Ox O2 Delivery O2 Flow Rate FiO2 09/07/18 19:49 83 18 150/85 99 Room Air 09/07/18 16:15 98.7 General Appearance: No Apparent Distress, WD/WN Respiratory: Lungs Clear, No Respiratory Distress Cardiovascular: Regular Rate, Rhythm, No Murmur Hospital Course Pt was admitted for nausea and dizziness with a new RBBB. Cardiology was consulted given history and concern for atypical presentation of ACS. Tropronins were trended and negative. He underwent stress testing which was negative and he was discharged home in stable condition. Labs (last 24 hrs) Microbiology 09/05/18 Blood Culture - Preliminary, Resulted No growth 09/05/18 Influenza Types A,B Antigen (MARSHA) - Final, Complete Patient resulted labs reviewed. Pending Labs Imaging: Reviewed Imaging Report Discussion & Recommendations Discharge Planning: >30 minutes discharge planning Discharge Home Medications: Active Scripts Active Reported Cleocin T (Clindamycin Phosphate) 60 Ml Lotion TP DAILY PRN Rosadan (Metronidazole) 45 Gm Gel..gram. TP DAILY PRN Flonase Allergy Relief (Fluticasone Propionate) 9.9 Ml [place].susp 1 [place] NS DAILY PRN Ketoconazole 120 Ml Shampoo TOP DAILY Venlafaxine HCl 75 Mg Tab 75 Mg PO BID Cetirizine HCl 10 Mg Tablet 10 Mg PO DAILY Hydrochlorothiazide 25 Mg Tablet 25 Mg PO DAILY Vitamin D2 (Ergocalciferol (Vitamin D2)) 50,000 Unit Capsule 50,000 Unit PO SA Amlodipine Besylate 5 Mg Tablet 5 Mg PO HS Metformin HCl 500 Mg Tablet 1,000 Mg PO BID TAKES 2 (500MG) TABLETS Potassium Citrate ER (Potassium Citrate) 10 Meq Tablet.er 20 Meq PO BID TAKES 2 (10MEQ) TABLETS Allopurinol 300 Mg Tablet 300 Mg PO DAILY Lamictal (Lamotrigine) 200 Mg Tab 200 Mg PO BID LAST FILLED #180 04-28-18 Instructions to patient/family Please see electronic discharge instructions given to patient. Clinical Quality Measures DVT/VTE Risk/Contraindication: Risk Factor Score Per Nursin RFS Level Per Nursing on Admit: 2=Moderate Problem Qualifiers (1) HLD (hyperlipidemia): Hyperlipidemia type: unspecified Qualified Codes: E78.5 - Hyperlipidemia, unspecified (2) Bipolar disorder: Active/Remission status: in remission of unspecified degree Qualified Codes: F31.70 - Bipolar disorder, currently in remission, most recent episode unspecified ARLENE KHANNA MD Sep 07, 2018 14:33
--- NOTE | 2018-09-07 15:39 | NUR ---
1525 PT BACK TO ROOM 427 FROM NUCLEAR MEDICINE VIA W/C PT VOICES NO C/O OR NEEDS AT THIS TIME, FRESH WATER GIVEN TO PATIENT. CALL LIGHT AND OTHER PERSONAL ITEMS WITHIN REACH WILL CONTINUE TO MONITOR.
[2018-09-07 16:15] VITALS: BP 150/85
[2018-09-07 19:49] VITALS: BP 150/85
--- NOTE | 2018-09-07 21:23 | STRESS TEST ---
DATE OF SERVICE: 09/07/2018 RESTING AND POST REGADENOSON TECHNETIUM-99M TETROFOSMIN SPECT CT IMAGING ORDERING PHYSICIAN: ALICIA Kent PRIMARY PHYSICIAN: Dr. Thomas. ATTENDING PHYSICIAN: Dr. Sterling. CLINICAL DIAGNOSES: Weakness, dizziness, shortness of breath, near syncope. Baseline images were carried out after injection of 10.53 mCi of technetium-99m Tetrofosmin. This was followed by 0.4 mg regadenoson and 31.6 mCi technetium-99m Tetrofosmin for stress imaging. The electrocardiogram showed sinus rhythm at baseline. There was right bundle branch block. The electrocardiogram did not change with the regadenoson infusion. The patient tolerated the procedure well. Review of images at rest and following stress does not indicate any distinct perfusion defects consistent with significant myocardial ischemia or infarction. Count uptake is somewhat diminished in the diaphragmatic wall of the left ventricle, both at rest and following regadenoson infusion. This appears to be diaphragmatic attenuation. Gated images show normal global left ventricular systolic function, normal regional wall motion. The diaphragmatic wall of the left ventricle also exhibits normal motion. Left ventricular ejection fraction is calculated to be 58%. Left ventricular end diastolic volume is 64 mL. TID is absent (1.13). CONCLUSIONS: 1. No evidence of significant myocardial ischemia or infarction on this study. 2. Normal regional wall motion. 3. Normal global left ventricular systolic function with a calculated ejection fraction 58%. Job ID: [id number] DocumentID: [id number] Dictated Date: 09/07/2018 17:00:10 Epic Professional Date: 09/07/2018 21:22:07 Dictated By: PITER LOCKE MD, MA, FACP, FACC, [facility]
[2018-09-08] MEDS ORDERED: metFORMIN 500 MG (GLUCOPHAGE) TAB PO SCH (07:00)
== END 2018-09-07 17:08 | disposition home or self-care (01) ==
LOC: EDUNIT# 19:14 → ER 19:15 → 4TH 22:20 → UNDOADMOB 22:20 → 4TH 23:15
PROVIDERS: ADMIT Internal Medicine; ATTEND Internal Medicine
DX: I45.10 Unspecified right bundle-branch block (principal); E87.2 Acidosis; E11.9 Type 2 diabetes mellitus without complications; I11.9 Hypertensive heart disease without heart failure; E78.5 Hyperlipidemia, unspecified; G47.33 Obstructive sleep apnea (adult) (pediatric); K59.09 Other constipation; F41.9 Anxiety disorder, unspecified; F31.70 Bipolar disorder, currently in remission, most recent episode unspecified; R53.1 Weakness; E66.9 Obesity, unspecified; Z68.41 Body mass index [BMI] 40.0-44.9, adult; Z79.84 Long term (current) use of oral hypoglycemic drugs; Z79.899 Other long term (current) drug therapy; Z82.49 Family history of ischemic heart disease and other diseases of the circulatory system
CPT/HCPCS: 36415; 71045; 71275; 78452; 80048; 80053; 81000; 82150; 82550; 82553; 82805; 82962; 83605; 83690; 83735; 83874; 83880; 84484; 85007; 85025; 85027; 85610; 85730; 87040; 87804; 93005; 93017; 93041; 93306; 96361; 96365; 96366; 96375; G0378

== ENCOUNTER 2018-10-04 10:16 | Outpatient (RCR) | payer MEDICARE, MEDICAID ==
[~2018-10-04 10:16] MED LIST changes: +CLIN60LO TP; -HYDR-3454 PO; +HYDR-3455 PO; +KETO120S2 TOP; +METR45GE TP; +METR60GE4 TP; +VNL75T PO
== END 2019-01-02 | disposition home or self-care (01) ==
LOC: CARD 10:16
PROVIDERS: ATTEND Internal Medicine Cardiovascular Disease
DX: R00.2 Palpitations (principal); G47.33 Obstructive sleep apnea (adult) (pediatric); E11.9 Type 2 diabetes mellitus without complications

== ENCOUNTER → 2020-05-01 | Outpatient (CLI) | payer MEDICARE, MEDICAID ==
[~2020-05-01] MED LIST changes: +KETO120S13 TOP; -KETO120S2 TOP
[2020-05-01 11:08] LABS: POTASSIUM 3.9 MMOL/L (3.6-5.0)
[2020-05-01 11:09] LABS: CALCIUM 9.9 MG/DL (8.5-10.1)
--- NOTE | 2020-05-01 11:10 | Diagnostic Imaging Report ---
PROCEDURE: CT abdomen and pelvis without contrast. TECHNIQUE: Multiple contiguous axial images were obtained through the abdomen and pelvis without the use of intravenous contrast. Auto Exposure Controls were utilized during the CT exam to meet ALARA standards for radiation dose reduction. INDICATION: Bilateral flank pain and hematuria. COMPARISON: Comparison is made with prior CT abdomen from 04/26/2018. FINDINGS: The lung bases are clear. No discrete liver mass is detected. Gallbladder is surgically absent. There is no biliary ductal dilatation. The pancreas and spleen are unremarkable. No adrenal mass is detected. Cortical renal densities are again noted and appear too small to characterize. A hyperdense lesion in the lower pole of the right kidney measures approximately 10 mm. This compares with 8 to 9 mm on prior exam from two years earlier. No renal calculi are seen. There is no hydronephrosis. No ureteral calculi are identified. Bladder is decompressed. Prostate is unremarkable. Aorta is nonaneurysmal. Small and large bowel loops appear to be nonobstructive. There is diverticulosis of the descending and sigmoid colon but no evidence of acute diverticulitis. There is no free fluid or fluid collection identified. Bony structures demonstrate postop changes of posterior instrumented fusion in the lower lumbar spine. IMPRESSION: 1. Renal cortical densities, similar to prior exam from two years earlier. A hyperdense lesion in the lower pole of the right kidney is noted which shows only minimal increase in size over two-year interval. This may represent hemorrhagic cyst but continued follow-up is recommended. No calculi or hydronephrosis are detected. 2. Uncomplicated diverticulosis. Dictated by: Dictated on workstation # [id number]
[2020-05-01 11:13] LABS: CREATININE SERUM 1.29 MG/DL (0.60-1.30)
--- NOTE | 2020-05-01 11:14 | Diagnostic Imaging Report ---
INDICATION: Abdominal pain. Time of exam: 10:39 AM Bowel gas pattern is nonobstructive. No pathologic calcifications are identified. There are postoperative changes of lower lumbar spine. IMPRESSION: No acute abnormality is detected. Dictated by: Dictated on workstation # [id number]
== END ==
LOC: RAD 10:45
PROVIDERS: ATTEND Urology
DX: N28.9 Disorder of kidney and ureter, unspecified (principal); K57.30 Diverticulosis of large intestine without perforation or abscess without bleeding; N40.1 Benign prostatic hyperplasia with lower urinary tract symptoms; Z87.442 Personal history of urinary calculi
CPT/HCPCS: 36415; 74018; 74176; 80048; 84153

== ENCOUNTER → 2020-10-18 | Outpatient (CLI) | payer MEDICARE, MEDICAID ==
[~2020-10-18] MED LIST changes: +AMLO-250 PO; -AMLO5TAB9 PO; +CIPR500T5 PO
--- NOTE | 2020-10-18 15:35 | Diagnostic Imaging Report ---
INDICATION: Flank pain. EXAMINATION: KUB at 3:15 p.m. FINDINGS: There are postsurgical changes from discectomy and dorsal fusion of L4-L5. There are degenerative disc changes of L1-L2 and L2-L3 present. Lung bases are clear. Bowel gas pattern is normal. There is no pathologic mass or calcification. IMPRESSION: No acute abnormality in the abdomen. Dictated by: Dictated on workstation # [id number]
== END ==
LOC: RAD 14:49
PROVIDERS: ATTEND Internal Medicine
DX: N20.1 Calculus of ureter (principal)
CPT/HCPCS: 74018

== ENCOUNTER 2020-12-11 05:33 | Outpatient (CLI) | payer MEDICARE, MEDICAID ==
[~2020-12-11] VITALS: Ht 175.3 cm; Wt 135.2 kg
[2020-12-11] MEDS ORDERED: MELA3TAB39 PO (12:22)
[2020-12-11] MEDS ORDERED: ERGO2000 PO (12:22)
[2020-12-11] MEDS ORDERED: CEPH500C PO (12:22)
[2020-12-11] MEDS ORDERED: ATOR40TA70 PO (12:22)
[2020-12-11] MEDS ORDERED: METF-397 PO (12:22)
== END 2020-12-11 13:35 | disposition home or self-care (01) ==
LOC: PREOP 05:33
PROVIDERS: ATTEND Surgery
DX: Z01.818 Encounter for other preprocedural examination (principal)

== ENCOUNTER → 2020-12-18 | Day surgery (SDC) | payer MEDICARE, MEDICAID ==
[~2020-12-18] VITALS: Ht 175.3 cm; Wt 135.2 kg
[~2020-12-18] MED LIST changes: +ACETAMINOPHEN 325 MG TABLET PO PRN; +ATOR40TA70 PO; +CEPH500C PO; +ERGO2000 PO; +HYDROcodone/APAP 5 MG/325 MG (LORTAB) TAB PO PRN; +LACTATED RINGERS 1,000 ML IV ONE; +LACTATED RINGERS 1,000 ML IV STA; +LIDOCAINE JELLY 2% 6 ML SYRINGE MM PRN; +LIDOCAINE JELLY 2% 6 ML SYRINGE ONE; +MELA3TAB39 PO; +MIDAZOLAM 2 MG/2 ML (VERSED) VIAL ONE; +NS IV 500 ML 0 ML ONE; +ONDANSETRON 4 MG/2 ML (SDV) Z0FRAN IVP PRN; +PROPOFOL INJECTION 50 ML IV ONE; +morphine INJ 10 MG/ML 1ML (SYR OR VIAL) IVP PRN
--- NOTE | 2020-12-18 09:40 | Conscious Sedation/ASA ---
Conscious Sedation Pre-Proced Time 09:30 ASA Score 2 For ASA 3 and 4: Consider anesthesia and medical clearance. Also, for patients with a history of failed moderate sedation consider anesthesia. Airway Lungs Heart ASA score ASA 1: a normal healthy patient ASA 2: a patient with a mild systemic disease (mid diabetes, controlled hypertension, obesity ASA 3: a patient with a severe systemic disease that limits activity (angina, COPD, prior Myocardial infarction) ASA 4: a patient with an incapacitating disease that is a constant threat to life (CHF, renal failure) ASA 5: a moribund patient not expected to survive 24 hrs. (ruptured aneurysm) ASA 6: a declared brain- patient whose organs are being harvested. For emergent operations, add the letter E after the classification Mallampati Classification Grade 2 Sedation Plan Analgesia, Amnesia, Plan communicated to team members, Discussed options with patient/fam, Discussed risks with patient/fam The patient is an appropriate candidate to undergo the planned procedure, sedation, and anesthesia. The patient immediately re-assessed prior to indication. AARON JORGE MD December 18, 2020 09:40
--- NOTE | 2020-12-18 09:40 | Progress Note-Pre Operative ---
Pre-Operative Progress Note H&P Reviewed The H&P was reviewed, patient examined and no changes noted. Date Seen by Provider: December 18, 2020 Time Seen by Provider: 09:30 Date H&P Reviewed: December 18, 2020 Time H&P Reviewed: 09:30 Pre-Operative Diagnosis: hx diverticulitis AARON JORGE MD December 18, 2020 09:40
--- NOTE | 2020-12-18 09:42 | Discharge Inst-Surgical ---
D/C Lap Instructions-LUISITO Follow Up Appt in 2 weeks Activity as tolerated High Fiber Diet 25g or more per day Avoid Alcohol, Caffeine, Spicy [place] and Acid foods. Drink 64 fluid oz or more of fluids per day. Symptoms to Report: Fever over 101 degree F, Nausea/Vomiting If any problems/questions: Contact your physician or go to Emergency Room AARON JORGE MD December 18, 2020 09:41
[2020-12-18 09:50] VITALS: BP 176/95
[2020-12-18 10:35] VITALS: BP 138/63
[2020-12-18 10:40] VITALS: BP 141/68
[2020-12-18 10:45] VITALS: BP 150/71
--- NOTE | 2020-12-18 10:45 | Progress Note-Post Operative ---
Post-Operative Progess Note Surgeon (s)/Customs Compliance Manager (s) Surgeon AARON JORGE MD Customs Compliance Manager: none Pre-Operative Diagnosis hx diverticulitis Post-Operative Diagnosis stage 2 ext stage 3 int hemorrhoids, moderate sigmoid diverticulosis. Procedure & Operative Findings Date of Procedure 12/18/20 Procedure Performed/Findings colonoscopy Anesthesia Type mac Estimated Blood Loss Estimated blood loss (mL): minimal Specimens/Packing Specimens Removed none AARON JORGE MD December 18, 2020 10:45
[2020-12-18 10:50] VITALS: BP 150/71
[2020-12-18 11:08] VITALS: BP 170/80
--- NOTE | 2020-12-18 13:14 | Anesthesia-General Post-Op ---
MAC Patient Condition Mental Status/LOC: Same as Preop Cardiovascular: Satisfactory Nausea/Vomiting: Absent Respiratory: Satisfactory Pain: Controlled Complications: Absent Post Op Complications Complications None Follow Up Care/Instructions Patient Instructions None needed. Anesthesiology Discharge Order Discharge Order Patient is doing well, no complaints, stable vital signs, no apparent adverse anesthesia problems. No complications reported per nursing. BRANDAN PLASCENCIA CRNA December 18, 2020 13:14
--- NOTE | 2020-12-18 16:20 | OPERATIVE REPORT ---
DATE OF SERVICE: 12/18/2020 ATTENDING PRIMARY CARE PHYSICIAN: Max Thomas DO PREOPERATIVE DIAGNOSIS: Screening colonoscopy. POSTOPERATIVE DIAGNOSES: Chronic stage II external hemorrhoids, acute on chronic stage III internal hemorrhoids, mild sigmoid diverticulosis. PROCEDURE: Colonoscopy. SURGEON: Aaron Jorge MD ANESTHESIA: Monitored anesthesia care. ESTIMATED BLOOD LOSS: Minimal. FINDINGS: Chronic stage II external hemorrhoids, acute on chronic stage III internal hemorrhoids, mild sigmoid diverticulosis. DISPOSITION: The patient tolerated the procedure well. INDICATIONS: The patient is a 60-year-old male, who was referred over to us for an episode of left lower abdominal quadrant pain and a diagnosis of diverticulitis and was started on oral antibiotic regimen and his symptoms improved. He states that he has had some history of constipation in the past. He does not report any red blood per rectum nor any dark tarry stools as well as no recent inadvertent weight loss. DESCRIPTION OF PROCEDURE: The patient was brought to the endoscopy suite, laid in the left lateral decubitus position. After adequate IV pain and sedative medications and monitored anesthesia care, a digital rectal examination was performed. Chronic stage II external and internal hemorrhoids were identified as well as acute on chronic stage III internal hemorrhoids with some edema identified. No active bleeding. Normal sphincter tone was felt and there were no palpable masses. Prostate gland was palpable and appeared normal. The endoscope was then intubated into the anus and rectum gently insufflated. The endoscope was then advanced to the valves of Perez of the rectum with no polyps or any neoplasms identified. Through the sigmoid colon, mild to moderate sigmoid diverticulosis identified with no mucosal inflammatory changes to indicate any active diverticulitis. The endoscope was then advanced through the remainder of the descending, transverse and ascending colon to the cecum. These segments were normal. There were no polyps or any neoplasms identified as well as no mucosal inflammatory changes. The endoscope was then slowly withdrawn while taking a second look and suctioning of residual air with no additional findings. The patient tolerated the procedure well. We will recommend medical management with a high fiber diet with at least 30 grams of fiber daily as well as significant amounts of water to promote soft stools on a daily basis. If he is medically compliant and is asymptomatic, he does not need another colonoscopy for another 10 years. If he has hemorrhoidal flareups, irritation, other symptomatology including bleeding or prolapse, proceed or worsen, then he may be a candidate for band ligation versus a formal hemorrhoidectomy. Job ID: [id number] DocumentID: [id number] Dictated Date: 12/18/2020 10:38:00 Sole Filler Date: 12/18/2020 16:19:27 Dictated By: AARON JORGE MD
== END ==
LOC: ENDO 09:33
PROVIDERS: ATTEND Surgery
DX: K64.4 Residual hemorrhoidal skin tags (principal); K64.8 Other hemorrhoids; K57.30 Diverticulosis of large intestine without perforation or abscess without bleeding; K57.32 Diverticulitis of large intestine without perforation or abscess without bleeding; I10 Essential (primary) hypertension; G47.33 Obstructive sleep apnea (adult) (pediatric); E11.9 Type 2 diabetes mellitus without complications; F32.9 Major depressive disorder, single episode, unspecified; F41.9 Anxiety disorder, unspecified; E66.01 Morbid (severe) obesity due to excess calories; Z98.890 Other specified postprocedural states; Z88.2 Allergy status to sulfonamides; Z88.8 Allergy status to other drugs, medicaments and biological substances; Z91.041 Radiographic dye allergy status; Z87.442 Personal history of urinary calculi; Z79.84 Long term (current) use of oral hypoglycemic drugs; Z68.41 Body mass index [BMI] 40.0-44.9, adult; Z79.899 Other long term (current) drug therapy

== ENCOUNTER → 2021-05-26 | Outpatient (CLI) | payer MEDICARE, MEDICAID ==
[~2021-05-26] MED LIST changes: -ACETAMINOPHEN 325 MG TABLET PO PRN; -HYDROcodone/APAP 5 MG/325 MG (LORTAB) TAB PO PRN; -LACTATED RINGERS 1,000 ML IV ONE; -LACTATED RINGERS 1,000 ML IV STA; -LIDOCAINE JELLY 2% 6 ML SYRINGE MM PRN; -LIDOCAINE JELLY 2% 6 ML SYRINGE ONE; -MIDAZOLAM 2 MG/2 ML (VERSED) VIAL ONE; -NS IV 500 ML 0 ML ONE; -ONDANSETRON 4 MG/2 ML (SDV) Z0FRAN IVP PRN; -PROPOFOL INJECTION 50 ML IV ONE; -morphine INJ 10 MG/ML 1ML (SYR OR VIAL) IVP PRN
--- NOTE | 2021-05-26 11:07 | Diagnostic Imaging Report ---
PROCEDURE: US Renal Bilateral. TECHNIQUE: Multiple real-time grayscale images were obtained over the kidneys in various projections bilaterally. INDICATION: Follow-up of complex cyst. COMPARISON: Comparison with CT scan of 05/01/2020. FINDINGS: Right kidney measures 12.6 x 5.3 x 5.7 cm. There is a 1.9 x 1.3 cm exophytic cyst which does appear simple in nature along the midportion of the right kidney. There is no hydronephrosis or calculi noted. No solid masses are seen. Left kidney measures 13.7 x 5.3 x 5.7 cm. No hydronephrosis or calculi. There is a small exophytic cyst measuring 1.4 cm in diameter in the midportion. Bladder appears normal. Right ureteral jet is demonstrated. Left ureteral jet was not seen. The prostate does not appear enlarged. IMPRESSION: 1. Small bilateral exophytic renal cortical cyst with a simple appearance. No significant overall change has occurred in size when compared with previous CT scan. No solid masses were demonstrated. Dictated by: Dictated on workstation # [id number]
== END ==
LOC: RAD 09:00
PROVIDERS: ATTEND Urology
DX: N28.1 Cyst of kidney, acquired (principal)
CPT/HCPCS: 76770

== ENCOUNTER 2023-03-17 12:44 | Emergency (ER) | payer OTHER, MEDICAID ==
[2023-03-17] MEDS ORDERED: ORPHENADRINE 60 MG/2 ML (NORFLEX) AMP (ED ONLY) IM ONE (13:15)
[2023-03-17] MEDS ORDERED: dexAMETHasone INJ 10 MG/ML 1 ML VIAL IM ONE (13:15)
[2023-03-17] MEDS ORDERED: KETOROLAC INJ 15 MG/ML VIAL IM ONE (13:15)
--- NOTE | 2023-03-17 13:19 | ED Lower Extremity ---
General Chief Complaint: Lower Extremity Stated Complaint: LT KNEE/HIP/LEG PAIN Source: patient Exam Limitations: no limitations History of Present Illness Date Seen by Provider: Mar 17, 2023 Time Seen by Provider: 12:51 Initial Comments 62-year-old male presents the ER with complaint of left sciatic nerve pain starting in his buttock rating all the way down to his ankle. States that he has been dealing with this pain for 3 months, states it has recently gotten worse. He takes hydrocodone as needed for pain, states he took 1 today. States he had a CT of his lumbar spine in December which showed lumbar stenosis and deterioration above and below L4 and L5. He had back surgery at L4 and L5 previously, he states he was told that the hardware is intact, but he has deterioration above and below this location currently. He reports chronic numbn ess in the lateral and anterior left upper leg. States that this numbness started after his back surgery. Denies any change of this numbness. Denies bowel or bladder incontinence. Patient was able to ambulate to ER room. He does report feeling as though his left leg is slightly weaker due to pain. He denies any fevers. Past medical history includes gout, diabetes, hypertension, hyperlipidemia. Allergies and Home Medications Allergies Coded Allergies: Sulfa (Sulfonamide Antibiotics) (Verified Allergy, Intermediate, ITCHING/NAUSEA, 08/07/15) Iodinated Contrast- Oral and IV Dye (Verified Allergy, Mild, FACIAL ALVAREZ, 05/23/18) aspirin (Verified Allergy, Mild, GI UPSET, 05/23/18) clomipramine (Verified Allergy, Mild, 12/01/13) Patient Home Medication List Home Medication List Reviewed: Yes Allopurinol (Allopurinol) 300 Mg Tablet, 300 MG PO DAILY, (Reported) Entered as Reported by: FINN PAULA on 05/23/18 1202 Atorvastatin Calcium (Atorvastatin Calcium) 40 Mg Tablet, 40 MG PO DAILY, (Reported) Entered as Reported by: RAKESH GOODMAN on 12/11/20 1222 Cephalexin (Cephalexin) 500 Mg Capsule, 500 MG PO DAILY, (Reported) Entered as Reported by: RAKESH GOODMAN on 12/11/20 1222 Ergocalciferol (Vitamin D2) (Vitamin D2) 50 Mcg Tablet, 50,000 UNITS PO DAILY, (Reported) Entered as Reported by: RAKESH GOODMAN on 12/11/20 1222 Hydrochlorothiazide (Hydrochlorothiazide) 25 Mg Tablet, 25 MG PO DAILY, (Reported) Entered as Reported by: FINN PAULA on 05/23/18 1202 Lamotrigine (Lamictal) 200 Mg Tab, 200 MG PO BID, (Reported) Entered as Reported by: FINN PAULA on 08/07/15 1018 Melatonin (Melatonin) 3 Mg Tablet, 3 MG PO HS, (Reported) Entered as Reported by: RAKESH GOODMAN on 12/11/20 1222 Metformin HCl (Metformin HCl) 500 Mg Tablet, 500 MG PO DAILY, (Reported) Entered as Reported by: RAKESH GOODMAN on 12/11/20 1222 Methocarbamol (Methocarbamol) 500 Mg Tablet, 1,500 MG PO Q6-8HR Prescribed by: Cintia Vegas on 03/17/23 1419 Review of Systems Constitutional: see HPI Past Lqqggrs-Hlryfa-Uwxegk Hx Patient Social History Tobacco Use?: No Use of E-Cig and/or Vaping dev: No Alcohol Use?: No Pt feels they are or have been: No Seasonal Allergies Seasonal Allergies: Yes Past Medical History Surgery/Hospitalization HX: L4-5 SURGERY, LUMBAR STENSOSIS, ANIA, HERNIA REPAIR, GOUT, HTN, HLD, DM Surgeries: Yes Abdominal, Gallbladder, Orthopedic Respiratory: Yes Sleep Apnea Currently Using CPAP: Yes Cardiac: Yes High Cholesterol, Hypertension Neurological: No Reproductive Disorders: No Sexually Transmitted Disease: No HIV/AIDS: No Genitourinary: Yes Kidney Stones Gastrointestinal: Yes (HERNIA'S X2) Chronic Constipation, Diverticulosis Musculoskeletal: Yes (BACK SURGERY AND LEFT HUMERUS SURGERY) Degenerate Disk Disease, Arthritis, Chronic Back Pain, Gout Endocrine: Yes Diabetes, Non-Insulin dep HEENT: No Loss of Vision: Bilateral Hearing Impairment: Denies Cancer: No Psychosocial: Yes Anxiety, Bipolar, Depression Integumentary: No 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) Adverse Reaction/Blood Tranf: No (NO REACTION) Family Medical History Cancer GRANDMOTHER (BREAST CA PATERNAL) Cataract GRANDMOTHER (PATERNAL) Congestive heart failure 03 FATHER GRANDMOTHER (PATERNAL) Family history: Allergy 03 MOTHER Family history: Arthritis 03 MOTHER Family history: Asthma 09 BROTHER Family history: Cardiovascular disease 03 FATHER ( OF HEARD DISEASE) Family history: Diabetes mellitus GRANDMOTHER (PATERNAL) GRANDFATHER AUNT (PATERNAL) Family history: Glaucoma AUNT (PATERNAL) Family history: Hypertension 03 FATHER Family history: Thyroid disorder 03 MOTHER Heart disease 03 FATHER GRANDMOTHER (PATERNAL) History of - anemia 03 MOTHER Hypercholesterolemia 03 FATHER Myocardial infarction 03 FATHER Stroke GRANDMOTHER (PATERNAL) Physical Exam Vital Signs Vital Signs - First Documented 03/17/23 13:05 Pulse 99 Resp 18 B/P (MAP) 127/80 (96) Pulse Ox 99 O2 Delivery Room Air Capillary Refill : Height, Weight, BMI Height: 5'9.00" Weight: 281lbs. 3.2oz. 127.758455mi; 43.99 BMI Method:Stated General Appearance: WD/WN, no apparent distress Cardiovascular: regular rate, rhythm Respiratory: lungs clear, normal breath sounds, no respiratory distress, no accessory muscle use Back: normal inspection, no vertebral tenderness Legs: bilateral leg normal range of motion, bilateral leg no evidence of injury; left leg pain Neurologic/Psychiatric: alert, normal mood/affect Skin: normal color, warm/dry Progress/Results/Core Measures Results/Orders My Orders Orders - CINTIA LIMA APRN Dexamethasone Injection (Dexamethasone (03/17/23 13:15) Orphenadrine Inj (Ed Only) (Norflex Inje (03/17/23 13:15) Ketorolac Injection (Ketorolac Injection (03/17/23 13:15) Medications Given in ED Current Medications Medications Dose Ordered Sig/Eliana Route Start Time Stop Time Status Last Admin Dose Admin Dexamethasone Sodium Phosphate 10 mg ONCE ONCE IM 03/17/23 13:15 03/17/23 13:16 DC 03/17/23 13:22 10 MG Ketorolac Tromethamine 15 mg ONCE ONCE IM 03/17/23 13:15 03/17/23 13:16 DC 03/17/23 13:23 15 MG Orphenadrine Citrate 60 mg ONCE ONCE IM 03/17/23 13:15 03/17/23 13:16 DC 03/17/23 13:23 60 MG Vital Signs/I&O 03/17/23 03/17/23 13:05 14:29 Pulse 99 91 Resp 18 18 B/P (MAP) 127/80 (96) 122/78 Pulse Ox 99 99 O2 Delivery Room Air Room Air Progress Progress Note : Progress Note Patient seen and evaluated, resting comfortably in recliner, no acute distress. Based on exam and symptoms, will treat for sciatic nerve pain with Decadron, Toradol, Norflex. 1413 patient reports improvement in his pain. Will discharge with Robaxin. Discharge instructions and return precautions provided. Departure Impression Primary Impression: Sciatic leg pain Disposition: HOME, SELF-CARE Condition: Stable Departure-Patient Inst. Decision time for Depature: 14:13 Referrals: YOMI NY DO (PCP/Family) Primary Care Physician Patient Instructions: Sciatica ED Add. Discharge Instructions: Take the muscle relaxer as needed for pain. Continue taking your hydrocodone as needed. Follow-up with your primary care provider. Return for severe pain, inability to walk, increase in weakness, numbness or tingling in your inner thighs or groin area, bowel or bladder incontinence, or any other new, concerning, or worsening symptoms. All discharge instructions reviewed with patient and/or family. Voiced understanding. Scripts Methocarbamol (Methocarbamol) 500 Mg Tablet 1500 MG PO Q6-8HR for Back Pain, #63 TAB 0 Refills Prov: CINTIA LIMA APRN 03/17/23 CINTIA LIMA APRN Mar 17, 2023 13:19
[2023-03-17] MEDS ORDERED: METH-731 PO (14:19)
[2023-03-17 14:29] VITALS: BP 122/78
== END 2023-03-17 14:29 | disposition home or self-care (01) ==
LOC: EDUNIT# 12:44 → ER 12:47
DX: M54.32 Sciatica, left side (principal); G47.30 Sleep apnea, unspecified; Z99.89 Dependence on other enabling machines and devices; Z87.39 Personal history of other diseases of the musculoskeletal system and connective tissue; Z98.890 Other specified postprocedural states; Z88.6 Allergy status to analgesic agent
CPT/HCPCS: 99284